=== PATIENT | female | born 1940 | race Caucasian/White ===

== ENCOUNTER → 2017-05-27 10:50 | Outpatient (CLI) | payer MEDICARE, OTHER, SELFPAY ==
[2017-05-27 12:21] LABS: Microalbumin,Random Urine 17.7 mg/L (NO RANGE EST.); Microalbumin:Creatinine Ratio 6.8 mg/g CRE (<30 mg/g CRE)
[2017-05-27 12:29] LABS: Hemoglobin A1c 5.6 % (4.2-6.3)
[2017-05-27 12:40] LABS: AST(SGOT) 16 U/L (15-37); Alanine Aminotransfer ALT/SGPT 17 U/L (13-56); Albumin, Serum 3.6 g/dL (3.2-5.0); Alkaline Phosphatase 131 U/L (45-117); Anion Gap 7 (5-15); BUN 13 mg/dL (7-18); BUN/Creat Ratio 17.6 RATIO (10-20); Bilirubin, Direct 0.14 mg/dL (0.00-0.30); Calcium,Total 9.1 mg/dL (8.5-10.1); Chloride 109 mmol/L (98-107); Cholesterol 249 mg/dL (200); Creatinine, Serum 0.74 mg/dL (0.55-1.02); EST Glomerular Filtration Rate 81 mL/min (>60); Est Glom Filt Rate - Afr Amer 98 mL/min (>60); Globulin 3.5 g/dL (2.2-4.2); Glucose 92 mg/dL (74-106); High Density Lipoprotein 60 mg/dL; Potassium 3.8 mmol/L (3.5-5.1); Protein, Total 7.1 g/dL (6.4-8.2); Sodium Level 141 mmol/L (136-145); Triglycerides 122 mg/dL; Very Low Density Lipoprotein 24 mg/dL (5-40)
== END ==
PROVIDERS: Family Provider Family Medicine; PCP Family Medicine; Visit Provider Family Medicine
DX: E11.9 Type 2 diabetes mellitus without complications (principal); I10 Essential (primary) hypertension
CPT/HCPCS: 36415; 80048; 80061; 80076; 82043; 82570; 83036

== ENCOUNTER 2017-07-29 09:00 | Outpatient (RCR) | payer MEDICARE, OTHER, SELFPAY ==
--- NOTE | 2017-05-30 15:03 | HP.PTEVAL_ITS ---
Patient's Visit Information ANTONI KULKARNI is a 76 year old F referred to Physical Therapy by MD SDAA Cohen with a diagnosis of LBP. Date of Evaluation: 05/30/17 Physical Therapist: Jason Sánchez PT, - Visit Plan Frequency: 2-3x /Week Duration: 4-6 Weeks Plan: Aquatic therapy consisting of B LE stretching and strengthening, core strengthening, and HEP - Subjective Subjective: Pt reports a chronic Hx of LBP, but notes it has worsened over the past 6 mos. Pt reports she has had PT in the past, but notes the benefits were only temporary. Pt reports She has L LE radiculopathy at trhis time that extends down the ant portion of her L thigh. Pt reports the pain does not extend beyond the knee. No recent Dx testing, although pt notes she has a spondylolesthesis which was detected on a previous test. Sleep diff secondary to pain at this time. Prolonged standing and walking tends to increase her pain. Pt has had 2 falls, both while tripping over her dog. 2/10 pain at rest, 5 /10 by the end of the day. - Pain LBP Pain Intensity (Out of 10): 2 Pain Intensity Range: 5 - Objective Neuro: B LE sensation is WNL to ight touch with the exception of B L5 is hyposensitive. MMT: B LE's are grossly 4/5 throughout. ROM: L/S is WNL in all planes with the exception of L/S extension which is moderately limited. Gait: Pt able to ambulate 170' with stad cane and CGAx1 until needing to sit - Goals Goal 1:: Decrease LBP x 50% to aid with sleep Goal Time Frame: 4-6 Weeks Goal 2:: Decrease F and I of L LE radiculopthy x 50% to aid with berkley for standing Goal Time Frame: 4-6 Weeks Goal 3:: Pt will be able to ambulate greater than 300 feet to aid with community ambulation Goal Time Frame: 4-6 Weeks Goal 4:: I with HEP Goal Time Frame: 4-6 Weeks - Rehabilitation Potential Physical Therapy Diagnosis: LBP, L LE radiculopathy, and limited ROM secondary to deg changes in L/S Rehabilitation Potential: Good - Anticipated Interventions Patient/Client Instruction: Educate patient on: Condition, Plan of Care For the Purpose of:: To improve self management Therapeutic Exercise to Include: Strength training, Endurance training, Body mechanics, Postural training, Flexibilty training, In an aquatic setting For the Purpose of:: To decrease pain, To increase ROM, To improve muscle performance and motor function Thank you for the opportunity to evaluate your patient. For Medicare and Medicare HMO plans, please review the plan of care and approve it. It will need to be FAXED BACK to us at [phone] for Medicare purposes. Please let me know if there are questions or concerns regarding this plan of care. Physician Signature: Date:
--- NOTE | 2017-06-26 11:31 | HP.PTREVAL_ITS ---
Carlie Renner MD, It has been my pleasure to treat ANTONI KULKARNI over the last 7 visits for LBP. Please see the progress note below for an update on the physical therapy plan of care! Subjective: Pt reports she has noticed big improvements with PT. Able to sleep through the night last night. No LE radiculopathy for last 3 days Objective/Function: Pain still at 6-7/10 at this time. Pt able to ambulate greater than 340' with cane without having to stop secondary to pain. Pt has had no LE radiculopathy for 3 days. Pt slept thoughout the night last night without waking up secondary to pain. Pt is progressing well toward Rx goals. Plan Plan: Cont with AT 2x's per week for 4 weeks Goals Goal 1:: Decrease LBP x 50% to aid with sleep Goal Time Frame: 4-6 Weeks Goal Progress: Progressing Goal 2:: Decrease F and I of L LE radiculopthy x 50% to aid with berkley for standing Goal Time Frame: 4-6 Weeks Goal Progress: Goal Met Goal 3:: Pt will be able to ambulate greater than 300 feet to aid with community ambulation Goal Time Frame: 4-6 Weeks Goal Progress: Goal Met Goal 4:: I with HEP Goal Time Frame: 4-6 Weeks Goal Progress: Progressing Anticipated Interventions Patient/Client Instruction: Educate patient on: Condition, Plan of Care For the Purpose of:: To improve self management Therapeutic Exercise to Include: Strength training, Endurance training, Body mechanics, Postural training, Flexibilty training, In an aquatic setting For the Purpose of:: To decrease pain, To increase ROM, To improve muscle performance and motor function Please do not hesitate to contact me at [phone] by phone or Fax: if you have questions or concerns regarding this new plan of care! Sincerely, Jason Sánchez, PT,
--- NOTE | 2017-07-29 09:12 | HP.PTDCSUM ---
HP - PT D/C Summary It has been my pleasure to treat ANTONI KULKARNI under orders from Carlie Renner MD, for the diagnosis of LBP for a total of 15 visit(s). Discharge Date: Please see the following information for a summary of their discharge status. - Subjective Subjective: Only minimal pain this date. Pt is ready for discharge - Pain LBP Pain Intensity (Out of 10): 1 RLE Pain Intensity (Out of 10): 0 LEFT LEG Pain Intensity (Out of 10): 1 - Objective Objective/Function: LBP now 03/12 and pt is not limited with sleep anymore. Pt can ambulate greater than 340 [address] cane. Pt reports very mild L LE radiculopathy 03/12. Pt is I with HEP. Rx goals achieved - Goals Goal 1:: Decrease LBP x 50% to aid with sleep Goal Progress: Goal Met Goal 2:: Decrease F and I of L LE radiculopthy x 50% to aid with berkley for standing Goal Progress: Goal Met Goal 3:: Pt will be able to ambulate greater than 300 feet to aid with community ambulation Goal Progress: Goal Met Goal 4:: I with HEP Goal Progress: Goal Met - Plan Plan: Discharge - D/C Information If there are questions or concerns regarding this patient's physical therapy, please feel free to call me at [phone]. Thank you for the referral of this patient. Sincerely, Jason Sánchez, PT,
== END 2017-07-29 14:29 | disposition home or self-care (01) ==
LOC: PT 09:00
PROVIDERS: Family Provider Family Medicine; PCP Family Medicine; Visit Provider Family Medicine
DX: M54.32 Sciatica, left side (principal)
CPT/HCPCS: 97113; 97161; 97530

== ENCOUNTER → 2017-12-01 14:34 | Outpatient (CLI) | payer MEDICARE, OTHER, SELFPAY ==
--- NOTE | 2017-12-01 14:38 | RAD_ITS ---
STUDY: X-RAY CHEST REASON FOR EXAM: Female, 77 years old. Cough TECHNIQUE: Frontal and lateral views COMPARISON: December 14, 2008. FINDINGS: The lungs are clear and expanded. There is no demonstrated pleural abnormality. Normal size heart. Normal mediastinum and elmer. Normal visualized pulmonary arteries. Mildly calcified aortic arch and descending thoracic aorta. Degenerative changes of the visualized thoracic spine. Normal visualized ribs, clavicles, and shoulders. There is no demonstrated abnormality of the visualized soft tissue structures of the upper abdomen. RAD/Chest PA and Lateral IMPRESSION: Normal x-ray examination of the chest. Electronically Signed: Shawn Ramírez DO at 21:51 EDT Tel [phone], Service support ,
[2017-12-01 17:53] LABS: Anion Gap 10 (5-15); BUN 11 mg/dL (7-18); BUN/Creat Ratio 9.6 RATIO (10-20); Calcium,Total 9.6 mg/dL (8.5-10.1); Chloride 107 mmol/L (98-107); Creatinine, Serum 1.15 mg/dL (0.55-1.02); EST Glomerular Filtration Rate 49 mL/min (>60); Est Glom Filt Rate - Afr Amer 59 mL/min (>60); Glucose 100 mg/dL (74-106); Potassium 3.8 mmol/L (3.5-5.1); Sodium Level 143 mmol/L (136-145)
[2017-12-01 18:12] LABS: Hemoglobin A1c 5.6 % (4.2-6.3)
== END ==
PROVIDERS: Family Provider Family Medicine; PCP Family Medicine; Referring Provider Family Medicine; Visit Provider Family Medicine
DX: R05 Cough (principal); E11.9 Type 2 diabetes mellitus without complications
CPT/HCPCS: 36415; 71046; 80048; 83036

== ENCOUNTER 2017-12-22 11:41 | Emergency (ER) | payer MEDICARE, OTHER, SELFPAY ==
[2017-12-22 11:43] VITALS: BP 157/92; PULSE 85; RESP 17; TEMP 36.7; O2SAT 96; BMI 37.5
--- NOTE | 2017-12-22 11:54 | CT_ITS ---
STUDY: CT BRAIN WITHOUT CONTRAST REASON FOR EXAM: Female, 77 years old. Fall. Laceration to forehead. RADIATION DOSAGE (If Supplied By Facility): CTDIvol = ( 44.99 ) mGy, DLP = ( 728.62 ) mGycm TECHNIQUE: Transaxial CT imaging of the brain was performed without administration of intravenous contrast material. Individualized dose optimization techniques were used for this CT. COMPARISON: None. FINDINGS: There is a small frontal scalp/soft tissue hematoma demonstrated. Normal calvarium. There is mild cerebral atrophy with widening of the extra-axial spaces and ventricular dilatation. There are areas of decreased attenuation within the white matter tracts of the supratentorial brain, consistent with microvascular disease changes. No demonstrated acute abnormality of the basal ganglia, thalami and brainstem. There is mild/moderate cerebellar atrophy. There is no intracranial hemorrhage. There are no findings of an acute ischemic infarction. Normal visualized paranasal sinuses. CT/Brain/Head without Contrast IMPRESSION: 1. Chronic involutional and ischemic changes of the brain. 2. No acute intracranial pathology demonstrated. 3. No demonstrated depressed skull fracture. Electronically Signed: Zulema Paul MD at 12:42 EDT Tel , Service support ,
--- NOTE | 2017-12-22 11:58 | ED.DCSUM_ITS ---
- ER Visit Summary Date of Service: 12/22/17 Chief Complaint: Mechanical fall History of Present Illness: The patient is a 77 F presents to the emergency department after mechanical fall. Patient normally walks with a cane, but she was not using it. She states she was walking to the bakery. She tripped over the sidewalk and fell forward. She caught herself with her hands, but then struck her face. She did not lose consciousness. She takes no anticoagulants. She is unsure of her last tetanus. She was wearing glasses and the glasses broke. She has no visual change, lightheadedness, or neck pain. She denies any numbness or weakness in her arms. She was able to stand and bear weight after the fall. Physical Examination: Vital signs reviewed General: Well-nourished, well-developed Head: Normocephalic, 2 cm laceration to the medial aspect of the right eyebrow that is vertically oriented Eyes: Pupils equal and reactive, extraocular muscles intact Neck, supple, no lymphadenopathy Heart: Regular rate and rhythm Respiratory: No distress, clear bilaterally Abdomen: Soft, nontender, nondistended, no peritoneal signs Back: Nontender Extremities: Nontender, superficial abrasions on the dorsum of both hands, no cords Skin: Normal color no rash Neuro: Alert and oriented, no focal or lateralizing deficits Test Results: [] Emergency Department Course and Treatment: The patient has a mechanical fall with head trauma. She had no loss of consciousness. She does have some superficial abrasions to the hands, but really no tenderness to palpation. I did obtain a head CT which showed chronic change, but no acute intracranial abnormalities. Patient's tetanus was updated. Her wound was anesthetized, irrigated, and closed with 5 simple interrupted suture. Patient tolerated this without issue. There were counseled on wound care and reasons to return. Patient will be discharged home. Treatment Plan: [] Disposition: Discharge Impression: 1. Mechanical fall 2. 2 cm facial laceration with repair This note was generated with [employer] dictation software. It may contain incorrect words, spelling, and punctuation that were not noted in review of the chart prior to signing ED Disposition - Plan for ED Patient: Chief Complaint: Fall Instructions: ED Mechanical Fall, ED Laceration All Referrals: Carlie Renner MD [Primary Care Provider] - 7 Days for suture removal
[2017-12-22] MEDS: Ibuprofen 600 MG Tablet PO (12:07)
[2017-12-22] MEDS: Diphth,Pertuss(Acell),Tet Vac 0.5 ML Vial IM (12:08)
[2017-12-22] MEDS: Lidocaine/Epi/Tetracaine 50 ML 1 APPLIC TOPICAL (12:08)
[2017-12-22 14:18] VITALS: BP 168/68; PULSE 80; RESP 18; O2SAT 96
== END 2017-12-22 14:19 | disposition home or self-care (01) ==
LOC: ED 12:30
PROVIDERS: Emergency Provider Emergency Medicine; Family Provider Family Medicine; PCP Family Medicine
DX: S01.111A Laceration without foreign body of right eyelid and periocular area, initial encounter (principal); Z23 Encounter for immunization; W01.198A Fall on same level from slipping, tripping and stumbling with subsequent striking against other object, initial encounter; Y93.01 Activity, walking, marching and hiking; Y92.89 Other specified places as the place of occurrence of the external cause; Y99.8 Other external cause status
CPT/HCPCS: 12011; 70450; 90715; 99283

== ENCOUNTER → 2018-06-02 14:09 | Outpatient (CLI) | payer MEDICARE, OTHER, SELFPAY ==
[2018-06-02 16:02] LABS: Microalbumin,Random Urine 5.2 mg/L (NO RANGE EST.); Microalbumin:Creatinine Ratio 7.3 mg/g CRE (<30 mg/g CRE)
[2018-06-02 16:08] LABS: AST(SGOT) 23 U/L (15-37); Alanine Aminotransfer ALT/SGPT 23 U/L (13-56); Albumin, Serum 3.8 g/dL (3.2-5.0); Alkaline Phosphatase 126 U/L (45-117); Anion Gap 5 (5-15); BUN 6 mg/dL (7-18); BUN/Creat Ratio 6.8 RATIO (10-20); Bilirubin, Direct 0.13 mg/dL (0.00-0.30); Chloride 109 mmol/L (98-107); Cholesterol 271 mg/dL (200); Creatinine, Serum 0.88 mg/dL (0.55-1.02); EST Glomerular Filtration Rate 66 mL/min (>60); Est Glom Filt Rate - Afr Amer 80 mL/min (>60); Glucose 102 mg/dL (74-106); High Density Lipoprotein 59 mg/dL; Potassium 4.5 mmol/L (3.5-5.1); Protein, Total 6.8 g/dL (6.4-8.2); Sodium Level 141 mmol/L (136-145); Triglycerides 158 mg/dL; Very Low Density Lipoprotein 32 mg/dL (5-40)
== END ==
PROVIDERS: Family Provider Family Medicine; PCP Family Medicine; Referring Provider Family Medicine; Visit Provider Family Medicine
DX: E11.9 Type 2 diabetes mellitus without complications (principal)
CPT/HCPCS: 36415; 80048; 80061; 80076; 82043; 82570

== ENCOUNTER → 2019-08-31 | Outpatient (CLI) | payer MEDICARE, OTHER, SELFPAY ==
[2019-08-31 16:11] LABS: AST(SGOT) 30 U/L (15-37); Alanine Aminotransfer ALT/SGPT 27 U/L (13-56); Anion Gap 7 (5-15); BUN 10 mg/dL (7-18); BUN/Creat Ratio 13.5 RATIO (10-20); Calcium,Total 8.9 mg/dL (8.5-10.1); Chloride 109 mmol/L (98-107); Cholesterol 149 mg/dL (200); Creatinine, Serum 0.74 mg/dL (0.55-1.02); EST Glomerular Filtration Rate 80 mL/min (>60); Est Glom Filt Rate - Afr Amer 97 mL/min (>60); Glucose 106 mg/dL (74-106); High Density Lipoprotein 61 mg/dL; Potassium 3.7 mmol/L (3.5-5.1); Sodium Level 142 mmol/L (136-145); Triglycerides 107 mg/dL; Very Low Density Lipoprotein 21 mg/dL (5-40)
[2019-09-01 07:20] LABS: SARS-COV-2 TOTAL ABS Nonreactive (Nonreactive)
== END | disposition home or self-care (01) ==
LOC: MFPLAB 11:20
PROVIDERS: PCP Family Medicine; Visit Provider Family Medicine
DX: I10 Essential (primary) hypertension (principal); E78.5 Hyperlipidemia, unspecified; Z20.828 Contact with and (suspected) exposure to other viral communicable diseases
CPT/HCPCS: 80048; 80061; 84450; 84460; 86769; G2023

== ENCOUNTER → 2021-02-16 14:51 | Outpatient (CLI) | payer MEDICARE, OTHER, SELFPAY ==
[2021-02-16 17:56] LABS: AST(SGOT) 34 U/L (15-37); Alanine Aminotransfer ALT/SGPT 35 U/L (13-56); Anion Gap 8 (5-15); BUN 17 mg/dL (7-18); BUN/Creat Ratio 19.4 RATIO (10-20); Chloride 103 mmol/L (98-107); Cholesterol 130 mg/dL (200); Creatinine, Serum 0.88 mg/dL (0.55-1.02); EST Glomerular Filtration Rate 66 mL/min (>60); Est Glom Filt Rate - Afr Amer 80 mL/min (>60); Glucose 100 mg/dL (74-106); High Density Lipoprotein 60 mg/dL; Potassium 3.7 mmol/L (3.5-5.1); Sodium Level 138 mmol/L (136-145); Triglycerides 93 mg/dL; Very Low Density Lipoprotein 19 mg/dL (5-40)
== END ==
PROVIDERS: PCP Family Medicine; Referring Provider Family Medicine; Visit Provider Family Medicine
DX: I10 Essential (primary) hypertension (principal); E78.5 Hyperlipidemia, unspecified
CPT/HCPCS: 36415; 80048; 80061; 84450; 84460

== ENCOUNTER 2021-03-28 15:02 | Outpatient (CLI) | payer MEDICARE, OTHER, SELFPAY ==
--- NOTE | 2021-03-28 15:08 | RAD_ITS ---
STUDY: X-RAY - LUMBAR SPINE REASON FOR EXAM: Female, 80 years old. Low back pain TECHNIQUE: 4 view(s) of the lumbar spine were obtained. COMPARISON: None FINDINGS: Normal lumbar lordosis. There is no substantial scoliosis. There is a normal alignment of the vertebrae from L1 to L4. There is a grade 1 spondylolisthesis at L4-5.. There is multilevel endplate spondylosis of the lumbar vertebrae. There is multi-level degenerative disc disease with multi-level disc space narrowing. The soft tissue structures are unremarkable. RAD/L/S Spine Min 4 Views IMPRESSION: Degenerative changes of the spine, as detailed above. No acute fracture Grade 1 spondylolisthesis at L4-5 Electronically Signed: Ashvin Ward MD at 13:14 EST ,
== END 2021-03-28 23:59 | disposition short-term general hospital (02) ==
LOC: MTRAD 15:04
PROVIDERS: PCP Family Medicine; Referring Provider Nurse Practitioner Family; Visit Provider Nurse Practitioner Family
DX: M46.96 Unspecified inflammatory spondylopathy, lumbar region (principal); M47.27 Other spondylosis with radiculopathy, lumbosacral region; M51.37 Other intervertebral disc degeneration, lumbosacral region
CPT/HCPCS: 72110

== ENCOUNTER 2021-04-03 09:42 | Outpatient (RCR) | payer MEDICARE, OTHER, SELFPAY | END 2021-04-03 19:00 | disposition home or self-care (01) | LOC: PT 09:42 | PROVIDERS: PCP Family Medicine; Referring Provider Nurse Practitioner Family; Visit Provider Nurse Practitioner Family | DX: M51.17 Intervertebral disc disorders with radiculopathy, lumbosacral region (principal); M46.96 Unspecified inflammatory spondylopathy, lumbar region; M47.27 Other spondylosis with radiculopathy, lumbosacral region | CPT/HCPCS: 97162 ==

== ENCOUNTER 2021-04-03 11:51 | Emergency (ER) | payer MEDICARE, OTHER, SELFPAY ==
[2021-04-03 11:52] VITALS: BP 143/83; PULSE 100; RESP 18; TEMP 36.2; O2SAT 100; BMI 33.6
[2021-04-03 12:41] VITALS: BP 154/79; PULSE 82; RESP 16; O2SAT 97
--- NOTE | 2021-04-03 14:12 | CT_ITS ---
STUDY: CT ABDOMEN AND PELVIS WITHOUT CONTRAST REASON FOR EXAM: Female, 80 years old. Pain, constipation, rule out SBO RADIATION DOSAGE (If Supplied By Facility): CTDIvol = ( 15.66 ) mGy, DLP = ( 778.72 ) mGycm TECHNIQUE: Transaxial images were obtained from the dome of the diaphragm to the symphysis pubis without oral contrast, and without intravenous contrast. Sagittal and coronal images were reconstructed. Individualized dose optimization techniques were used for this CT. COMPARISON: None. FINDINGS: Mild scarring at the lung bases. The visualized portions of the heart are within normal limits. Normal liver. There is a solitary gallstone. The gallstone measures 2.8 cm. Normal spleen. Normal pancreas. Normal bilateral adrenal glands. Normal right kidney. Normal left kidney. Normal visualized stomach. Normal small intestine. Moderate amount of fecal material is seen in the colon. Sigmoid diverticulosis. Questionable thickening along the left lateral wall of the rectum. Clinical correlation is recommended. There are surgical clips in the region of the appendix consistent with a prior appendectomy. There is scattered atherosclerotic calcification of the abdominal aorta and its major visceral branches, without a demonstrated aneurysm. Normal inferior vena cava. Normal retroperitoneum. An air-fluid level is seen within the urinary bladder. This most likely represents catheter manipulation. If there has been no attempted to DODGE catheter placement, a colovesical fistula should be ruled out. There is absence of the uterus consistent with a prior hysterectomy. Normal abdominal wall. There are diffuse degenerative changes of the visualized lumbar spine. Minimal anterior listhesis of L4 on L5. Facet joint osteoarthritis. CT/Abdomen/Pelvis without Cont IMPRESSION: Solitary gallstone. Moderate amount of fecal material is seen throughout the colon. Findings suggestive of a mural thickening along the left lateral wall of the rectum. Clinical correlation is recommended. Air-fluid level within the urinary bladder. This most likely secondary to prior catheterization attempt. If no catheterization attempt was performed, a colovesical fistula should be Electronically Signed: Umberto Pepe MD at 15:23 EST ,
[2021-04-03 14:50] LABS: Absolute Lymphocyte Count 1.58 X10^3/uL (0.83-4.51); Absolute Neutrophil Count 4.1 X10^3/uL (2.0-7.7); Basophil# 0.02 X10^3/uL; Basophil% 0.3 % (0-1); Eosinophil# 0.04 X10^3/uL; Eosinophils% 0.6 % (0-5); Hematocrit 39.4 % (37-47); Hemoglobin 13.1 g/dL (12.0-15.0); Lymphocyte # 1.58 X10^3/ul (0.83-4.51); Lymphocyte % 25.1 % (19-41); Mean Corp Hgb Conc 33.2 g/dL (32-36); Mean Corpuscular Hgb 28.8 pg (27.0-32.0); Mean Corpuscular Volume 86.6 fL (81-99); Mean Platelet Vol. 10.2 fl (6.2-12.0); Monocyte# 0.51 X10^3/uL; Monocyte% 8.1 % (0-10); NRBC Flagged by Analyzer 0 % (0-5); Neutrophil # 4.08 X10^3/uL (2.7-7.7); Neutrophil % 64.9 % (47-70); Platelet Count 188 K/mm3 (150-450); RBC Distribution Width CV 16.3 % (11.6-14.6); RBC Distribution Width SD 51.4 fl (35.1-43.9); Red Blood Count 4.55 M/mm3 (4.2-5.4); White Blood Count 6.3 K/mm3 (4.4-11.0)
[2021-04-03 15:00] LABS: AST(SGOT) 22 U/L (15-37); Alanine Aminotransfer ALT/SGPT 22 U/L (13-56); Albumin, Serum 2.9 g/dL (3.2-5.0); Alkaline Phosphatase 100 U/L (45-117); Anion Gap 7 (5-15); BUN 19 mg/dL (7-18); BUN/Creat Ratio 23.8 RATIO (10-20); Calcium,Total 9.1 mg/dL (8.5-10.1); Chloride 100 mmol/L (98-107); EST Glomerular Filtration Rate 74 mL/min (>60); Est Glom Filt Rate - Afr Amer 89 mL/min (>60); Globulin 2.9 g/dL (2.2-4.2); Glucose 110 mg/dL (74-106); Protein, Total 5.8 g/dL (6.4-8.2); Sodium Level 136 mmol/L (136-145)
[2021-04-03] MEDS: 0.9% Normal Saline 1,000 ML 125 ML IV (15:14)
--- NOTE | 2021-04-03 15:50 | EDS_ITS ---
HPI History of Present Illness Chief Complaint: Back Informant: patient and family Narrative Narrative: Patient is an 80-year-old female with history of urge incontinence and chronic back pain presenting from physical therapy for concern of fecal incontinence. Patient had physical therapy scheduled today and when they were going over her symptoms patient reported that she had stooled herself in her sleep last night. They were concerned given her back pain and sent her to emergency room to be evaluated further. Patient has been having a sore back for the past 2 weeks and is due to have a spinal injection tomorrow with Dr. Ritchie. She was diagnosed with spinal stenosis 5 years ago. She reportedly lost control of her bowels last week as well. Daughter describes last night incident as just a small smudge of stool in her depends when she woke up in the morning. It was not a full bowel movement or diarrhea. Patient does not have a bowel movement since yesterday and has been constipated. Patient does have chronic back pain that radiates down to her legs. She denies any significant change in it. She uses a cane to ambulate. Daughter does note that she has been having difficulty eating and coughing a lot whenever she eats for some time now. Patient does not report any numbness or tingling. She denies any new weakness of her legs. She denies any abdominal pain or acute urinary symptoms. No other complaints at this time. [facility] Medical History Anxiety Asthma Depression History of arthritis History of degenerative disc disease History of hyperlipidemia History of spinal stenosis Non-smoker Allergy/AdvReac Type Severity Reaction Status Date / Time No Known Allergies Allergy Verified 04/03/21 11:54 Surgical History History of bilateral knee replacement History of hysterectomy Social History Smoking Status: Never smoker ROS ROS ED Constitutional Constitutional ED: Denies chills or fever(s) Eyes Eyes: Denies change in vision ENT ENT ED: Denies rhinorrhea or sore throat Cardiovascular Cardiovascular: Denies chest pain Respiratory/Chest Respiratory/Chest: Denies cough or dyspnea Gastrointestinal Gastrointestinal: Reports constipation; Denies abdominal pain, diarrhea, nausea or vomiting Genitourinary Genitourinary ED: Denies dysuria, hematuria or urinary frequency Musculoskeletal Musculoskeletal: Reports back pain; Denies myalgias Integumentary Denies rash Neurologic Neurologic: Reports weakness; Denies headache(s) or paresthesias Psychiatric Psychiatric: Denies depression EXAM Physical Exam Const Vital Signs: 04/03/21 11:52 04/03/21 12:41 04/03/21 16:21 Temperature 97.1 F L Temperature Source Temporal Pulse Rate 100 82 89 Respiratory Rate 18 16 16 Blood Pressure 143/83 H 154/79 H 151/78 H Blood Pressure Mean 103 104 102 Pulse Ox 100 97 98 Oxygen Delivery Method Room Air Room Air Room Air Positive well nourished and well developed General Appearance ED: well developed and NAD Eyes PERRL and EOMs intact bilaterally Neck supple and no JVD Chest Wall inspection of chest normal Resp normal respiratory effort and clear to auscultation bilaterally Cardio regular rate, regular rhythm and no murmurs GI normal to inspection, nondistended, normoactive bowel sounds, non-tender and non-distended GI Narrative: Normal rectal tone. [place], rupali stool on rectal exam Palpation: soft Back/Spine no CVA tenderness Thoracic Spine / Upper Back: Negative for thoracic spinal tenderness or paraspinal muscle tenderness Lumbar Spine / Lower Back: Negative for lumbar spinal tenderness Extremity normal to inspection Extremity Narrative: 5 out of 5 strength with hip flexion, dorsiflexion and plantarflexion of the feet General Extremety ED: Negative for edema or tenderness General Extremity: Negative for edema Neuro oriented x3, CN's II-XII intact bilaterally and no sensory deficits noted Sensorium / Orientation: alert Motor Exam: strength 5/5 throughout Psych mental status grossly normal Skin no rashes or lesions noted and no wounds MDM MDM MDM Narrative Medical decision making narrative: Patient evaluated for concern of new onset of fecal incontinence. Patient is not having an acute back pain but has been having a sore back for couple weeks. No focal neurologic deficits. She has normal rectal tone. She does not have any saddle anesthesia. Will obtain a post void bladder scan and I do not think this is cauda equina syndrome. I suspect more that she has some constipation that is causing her symptoms. Given her age and vague history I did obtain blood work as well as a CT scan of the abdomen and pelvis. Blood work is remarkable for mild hypokalemia with a potassium of 3.0. She is given 40 mEq potassium replacement in the emergency room. CT shows moderate mount of fecal material in the colon as well as mural thickening along the left lateral rectal wall. In addition patient has an air- fluid level of the urinary bladder. No Trevizo catheter attempts have been made so differential includes gas-forming UTI versus fistula. Urinalysis is pending. Will order enema for constipation. Patient is informed of findings of the rectal wall thickening and need for outpatient follow-up to rule out malignancy. Given that she is not having any rectal pain, fever or leukocytosis I do not suspect inflammatory/infectious process at this time. Patient voids in the ER and on bladder scan has less than 100 mL of urine. I do not think she has acute urinary retention. Urinalysis is pending. If it is infectious she will be started on antibiotics. She is counseled on CT findings and need for outpatient follow-up with GI for rectal wall thickening as well as her PCP for possible fistula/further evaluation. Patient is encouraged to start taking daily MiraLAX. Counseled on return precautions with daughter and patient. Patient is given a copy of her CT findings. Lab Data Labs: Laboratory Results - last 24 hr 04/03/21 04/03/21 14:35 14:35 WBC 6.3 RBC 4.55 Hgb 13.1 Hct 39.4 MCV 86.6 MCH 28.8 MCHC 33.2 RDW Std Deviation 51.4 H RDW Coeff of Alfredo 16.3 H Plt Count 188 MPV 10.2 Immature Gran % (Auto) 1.000 H Neut % (Auto) 64.9 Lymph % (Auto) 25.1 Lake % (Auto) 8.1 Eos % (Auto) 0.6 Baso % (Auto) 0.3 Absolute Neuts (auto) 4.1 Absolute Lymphs (auto) 1.58 Nucleated RBC % 0 Sodium 136 Potassium 3.0 L Chloride 100 Carbon Dioxide 29.0 Anion Gap 7 BUN 19 H Creatinine 0.80 Estim Creat Clear Calc 46.40 Est GFR (MDRD) Af Amer 89 Est GFR (MDRD) Non-Af 74 BUN/Creatinine Ratio 23.8 H Glucose 110 H Calcium 9.1 Total Bilirubin 0.70 AST 22 ALT 22 Alkaline Phosphatase 100 Total Protein 5.8 L Albumin 2.9 L Globulin 2.9 Albumin/Globulin Ratio 1.0 Radiography Diagnostic Testing: Clinical Impression(s) from Imaging Studies Abdomen/Pelvis CT 04/03/21 14:12 IMPRESSION: Solitary gallstone. Moderate amount of fecal material is seen throughout the colon. Findings suggestive of a mural thickening along the left lateral wall of the rectum. Clinical correlation is recommended. Air-fluid level within the urinary bladder. This most likely secondary to prior catheterization attempt. If no catheterization attempt was performed, a colovesical fistula should be Electronically Signed: Umberto Pepe MD at 15:23 EST , Discharge Plan Triage Chief Complaint: Back ED Provider: Melony Jalloh Dx/Rx/DC Orders Clinical Impression: Constipation, Mural thickening of colon Instructions: ED Constipation (Adult) Primary Care Provider: Carlie Renner Referrals: Carlie Renner MD [Primary Care Provider] - Friend,DO Mario [STAFF PHYSICIAN] - 3-5 Days Activity Restrictions/Additional Instructions: Start taking daily MiraLAX, this is [id number], to help with constipation. Your CT showed air within the bladder which can be from infection or fistula. You been referred to GI doctor to follow-up with this as well as for evaluation of possible mass in your rectum. You may go for your spinal injection tomorrow. Disposition Disposition: Home, Self Care
[2021-04-03 16:15] LABS: Mucous, Urine 0 SEEN /hpf (<or=2+)
[2021-04-03 16:19] LABS: Color, Urine Yellow (Yellow); Glucose, Dipstick Normal (Normal); Ketone-Dipstick 5 mg/dl (Negative); Leukocyte Esterase-Dipstick 500 /ul (Negative); Nitrite-Dipstick Positive (Negative); Occult Blood-Urine 50 /ul (Negative); Protein-Dipstick 30 mg/dl (Negative); Specific Gravity, Urine 1.025 (1.002-1.030); Urine Bilirubin Dipstick Negative (Negative); Urine Clarity Cloudy (Clear); Urine Urobilinogen 1 mg/dl (Normal)
[2021-04-03 16:21] VITALS: BP 151/78; PULSE 89; RESP 16; O2SAT 98
[2021-04-03 16:35] LABS: Bacteria 3+ /hpf (None Seen); Red Blood Cells-Urine 0-5 SEEN /hpf (0-5); Squamous Epithelial Cells - UA 0-5 SEEN /hpf (5-10); White Blood Cells 10-25 SEEN /hpf (0-5)
--- NOTE | 2021-04-03 16:46 | EDS_ITS ---
HPI History of Present Illness Chief Complaint: Back [facility] Medical History Anxiety Asthma Depression History of arthritis History of degenerative disc disease History of hyperlipidemia History of spinal stenosis Non-smoker Home Medications cephalexin 500 mg PO Q6 #40 capsule 04/03/21 [Rx Last Taken Unknown] Allergy/AdvReac Type Severity Reaction Status Date / Time No Known Allergies Allergy Verified 04/03/21 11:54 Surgical History History of bilateral knee replacement History of hysterectomy Social History Smoking Status: Never smoker EXAM Physical Exam Const Vital Signs: 04/03/21 11:52 04/03/21 12:41 04/03/21 16:21 Temperature 97.1 F L Temperature Source Temporal Pulse Rate 100 82 89 Respiratory Rate 18 16 16 Blood Pressure 143/83 H 154/79 H 151/78 H Blood Pressure Mean 103 104 102 Pulse Ox 100 97 98 Oxygen Delivery Method Room Air Room Air Room Air [facility] Lab Data Labs: Laboratory Results - last 24 hr 04/03/21 04/03/21 04/03/21 14:35 14:35 16:11 WBC 6.3 RBC 4.55 Hgb 13.1 Hct 39.4 MCV 86.6 MCH 28.8 MCHC 33.2 RDW Std Deviation 51.4 H RDW Coeff of Alrfedo 16.3 H Plt Count 188 MPV 10.2 Immature Gran % (Auto) 1.000 H Neut % (Auto) 64.9 Lymph % (Auto) 25.1 [place] % (Auto) 8.1 Eos % (Auto) 0.6 Baso % (Auto) 0.3 Absolute Neuts (auto) 4.1 Absolute Lymphs (auto) 1.58 Nucleated RBC % 0 Sodium 136 Potassium 3.0 L Chloride 100 Carbon Dioxide 29.0 Anion Gap 7 BUN 19 H Creatinine 0.80 Estim Creat Clear Calc 46.40 Est GFR (MDRD) Af Amer 89 Est GFR (MDRD) Non-Af 74 BUN/Creatinine Ratio 23.8 H Glucose 110 H Calcium 9.1 Total Bilirubin 0.70 AST 22 ALT 22 Alkaline Phosphatase 100 Total Protein 5.8 L Albumin 2.9 L Globulin 2.9 Albumin/Globulin Ratio 1.0 Urine Color Yellow Urine Clarity Cloudy Urine pH 5.0 Ur Specific [place] 1.025 Urine Protein 30 H Urine Glucose (UA) Normal Urine Ketones 5 H Urine Occult Blood 50 H Urine Nitrite Positive H Urine Bilirubin Negative Urine Urobilinogen 1 H Ur Leukocyte Esterase 500 H Urine RBC 0-5 SEEN Urine WBC 10-25 SEEN Ur Squamous Epith Cells 0-5 SEEN Urine Bacteria 3+ Urine Mucus 0 SEEN Radiography Diagnostic Testing: Clinical Impression(s) from Imaging Studies Abdomen/Pelvis CT 04/03/21 14:12 IMPRESSION: Solitary gallstone. Moderate amount of fecal material is seen throughout the colon. Findings suggestive of a mural thickening along the left lateral wall of the rectum. Clinical correlation is recommended. Air-fluid level within the urinary bladder. This most likely secondary to prior catheterization attempt. If no catheterization attempt was performed, a colovesical fistula should be Electronically Signed: Umberto Pepe MD at 15:23 EST Reading Location ID and State: [address] [place] [address] , Service support , Discharge Plan Triage Chief Complaint: Back ED Provider: Melony Jalloh Dx/Rx/DC Orders Clinical Impression: Constipation, Mural thickening of colon, Acute UTI Instructions: Urinary Tract Infections in Women, ED Constipation (Adult) Prescriptions: New cephalexin [cephalexin] 500 MG capsule 500 mg PO Q6 Qty: 40 RF: 0 Primary Care Provider: Carlie Renner Referrals: Carlie Renner MD [Primary Care Provider] - Friend,DO Mario [STAFF PHYSICIAN] - 3-5 Days Activity Restrictions/Additional Instructions: Start taking daily MiraLAX, this is [id number], to help with constipation. Your CT showed air within the bladder which can be from infection or fistula. You been referred to GI doctor to follow-up with this as well as for evaluation of possible mass in your rectum. You may go for your spinal injection tomorrow. Disposition Disposition: Home, Self Care
[2021-04-03] MEDS: Potassium Chloride Oral Tablet 20 MEQ 40 MEQ PO (18:36)
[2021-04-03] MEDS: Cephalexin 250 MG Capsule 500 MG PO (18:36)
[2021-04-03 18:47] VITALS: BP 130/76; PULSE 96; RESP 15; O2SAT 97
== END 2021-04-03 18:48 | disposition home or self-care (01) ==
PROVIDERS: Emergency Provider Emergency Medicine; PCP Family Medicine; Visit Provider Emergency Medicine
DX: K59.00 Constipation, unspecified (principal); M46.86 Other specified inflammatory spondylopathies, lumbar region; N39.0 Urinary tract infection, site not specified; M51.37 Other intervertebral disc degeneration, lumbosacral region; M47.817 Spondylosis without myelopathy or radiculopathy, lumbosacral region; M54.17 Radiculopathy, lumbosacral region; R32 Unspecified urinary incontinence; Z96.653 Presence of artificial knee joint, bilateral
CPT/HCPCS: 74176; 80053; 81001; 85025; 96360; 96361; 97162; 99285; J7030

== ENCOUNTER 2021-06-07 10:00 | Day surgery (SDC) | payer MEDICARE, OTHER, SELFPAY ==
--- NOTE | 2021-06-07 | COLBX_PTH ---
PATIENT: ANTONI KULKARNI LOC: EN U#:[id number] AGE/SX: 80/F ROOM: RE06/07/[address]: Dr. Mario Booth DO : 1940 BED: DIS: 06/07/2021 SPEC #: [id number] RECD: 06/07/21 14:20 STATUS: RICHARD MOUNA #: [id number] KARISHMA: 06/07/21 00:[address]: Mario Booth DEPT: SURGICAL PATHOLOGY RECD BY: Earl Rojas ENTERED: 06/08/21 10:47 SP TYPE: COLON BX OTHR DR: Dr. Carlie Renner MD Tissues: A - SPLENIC FLEXURE B - Ileum, NOS C - Cecum, NOS D - Transverse colon E - Anal region F - Anal region Procedures: Surgery Specimen Level IV HEADER OPERATION: Colonoscopy (MAC), biopsy PRE-OP DIAGNOSIS: Abnormal CT scan, GI tract TISSUE SUBMITTED: A ? Biopsy splenic flexure, polyps, B ? Terminal ileum biopsy, C ? Cecal cap biopsy, D ? Transverse colon polyp, E ? Anal lesion biopsy, F ? Anal lesion MICROSCOPIC DIAGNOSIS A. Splenic flexure polyps, biopsy: Fragments of tubular adenoma. B. Terminal ileum, biopsy: A fragment of small intestinal mucosa, no pathologic diagnosis. C. Cecal cap, biopsy: Fragments of colonic mucosa, no pathologic diagnosis. D. Transverse colon polyp, biopsy: Tubular adenoma. E. Anal lesion, biopsy: Fragments of colonic mucosa with extensive ulceration, acute and chronic inflammation, granulation tissue reaction and focal hyperplastic changes, consistent with solitary rectal ulcer/rectal polyp syndrome. F. Anal lesion, biopsy: Fragments of colonic mucosa with extensive ulceration, acute and chronic inflammation, granulation tissue reaction and focal hyperplastic changes, consistent with solitary rectal ulcer/rectal polyp syndrome. A fragment of tubular adenoma. SJ:rg 06/11/2021 COMMENT Correlation with clinical, endoscopic findings and appropriate follow up are necessary. Case has been reviewed in consultation with Dr. Singh who concurs with the above diagnosis. IDC:AM MICROSCOPIC DESCRIPTION Slides are reviewed. GROSS DESCRIPTION A - Received in fixative is one container labeled with the patient's name and designated splenic flexure polyps. The specimen consists of two irregular fragments of light montilla soft tissue that in aggregate measure 0.6 x 0.4 x 0.1 cm. The specimen is totally submitted in one cassette. B - Received in fixative is one container labeled with the patient's name and designated terminal ileum. The specimen consists of one irregular fragment of light [place] soft tissue that measures 0.3 x 0.3 x 0.1 cm. The specimen is totally submitted in one cassette. C - Received in fixative is one container labeled with the patient's name and designated cecal cap. The specimen consists of two irregular fragments of light montilla soft tissue that in aggregate measure 0.6 x 0.3 x 0.1 cm. The specimen is totally submitted in one cassette. D - Received in fixative is one container labeled with the patient's name and designated transverse colon polyp. The specimen consists of two irregular fragments of light [place]illa soft tissue that in aggregate measure 0.5 x 0.2 x 0.1 cm. The specimen is totally submitted in one cassette. E - Received in fixative is one container labeled with the patient's name and designated anal lesion. The specimen consists of multiple irregular fragments of light montilla soft tissue that in aggregate measure 1 x 0.5 x 0.1 cm. The specimen is totally submitted in one cassette. F - Received in fixative is one container labeled with the patient's name and designated anal lesion. The specimen consists of multiple irregular fragments of light montilla soft tissue that in aggregate measure 1 x 0.4 x 0.1 cm. The specimen is totally submitted in one cassette. / SJ:dany 06/08/2021 TC:1 CPT: 65337 x6
[2021-06-07 10:36] VITALS: BP 150/85; PULSE 89; RESP 18; TEMP 36.3; O2SAT 97; BMI 33.5
--- NOTE | 2021-06-07 11:18 | HP.PCM_ITS ---
History and Physical Date of Admission: 06/07/21 80 F who presents to the office today for Presented to [facility] ED 2.03.24 with reports of fecal incontinence which will happen during sleep. She was also having difficulty with back pain; urinary work up performed. Also noted that she was having back pain and is being seen by Dr. Beebe for this. ATB therapy started for UTI treatment. CT abd/pel performed during ED visit. CT abd/pel 2.03.24 found moderate amount of fecal material seen in colon. Sigmoid diverticulosis. Questionable thickening along left lateral rectal wall. Solitary gallstone measuring 2.8cm. Scarring at lung bases. Diffuse degenerative changes of lumbar spine. Facet osteoarthritis. Minimal anterior lithiasis of L4 on L5. Air filled urinary bladder with no Trevizo present or attempted. Reports ongoing issues with constipation and diarrhea for many years. Two weeks prior to ED presentation she reported worsening diarrhea. During this time she had increased urgency with incontinence and a lack of feeling of needing to defecate. Incontinence was happening frequently during the night. This last until a couple days following the ED visit. She started Miralax QD following ED visit and she has been doing well with this regimen. Has not needed Miralax in the last five days as she has been having daily BM with feeling of complete evacuation, however she sometimes feels like she goes a lot during one sitting. Daughter reports that there has been some difficulty swallowing with coughing and choking and they have changed to a soft diet for the last year. Since ATB use for UTI she has not been having this difficulty. Denies family history of colon cancer. One brother and two half-sisters had cancer. Personal history of skin cancer. She sees dermatology Dr. Edge through [facility]. Denies history of colonoscopy screening. ROS Const Constitutional: No anorexia, body ache, chills, excessive sweating, fatigue, fever(s), frequent falls, headache(s), decreased energy, malaise, night sweats, snoring, weakness, weight change, sleep problems, abnormal sleep pattern, change in appetite or other ENT ENT: No headache(s), difficulty swallowing, hoarseness or sore throat Resp Respiratory: No snoring Cardio Cardiology: No chest pain at rest or excessive sweating Gastro GI: No abdominal pain, belching, bloating, change in bowel habits, change in stool character, coffee ground emesis, constipation, cramping, diarrhea, heartburn, difficulty swallowing, feeling full early, excessive flatus, incontinent of stools, Vomiting blood/hematemesis, Blood in stool, loose stools, Black,tarry stools, nausea/dyspepsia, pain with swallowing, vomiting or other Musc Musculoskeletal: No joint pain Skin Skin: No yellowing of the eye or itchy eyes Neuro Neurology: No weakness, frequent falls or headache(s) Psych Psychiatric: No abnormal sleep pattern and No change in appetite Endo Endocrine: No excessive sweating, fatigue or weight change Aller/Imm Allergy/Immunologic: No itchy eyes Danny/Lymp Hematologic/Lymphatic: No easy bleeding or easy bruising Exam Const General: cooperative and comfortable Nutritional Appearance: average body habitus and well nourished HENMT Head: normal to inspection Ears: hearing grossly normal bilaterally Nose: external nose normal Face and sinus: normal facial exam Mouth: oral mucosae normal Throat: posterior oropharynx normal Eyes General: appearance normal, both eyes and all related structures Neck Neck: normal visual inspection Chest Chest palpation & inspection: normal inspection of the chest and normal palpation of entire chest wall Resp Effort & Inspection: normal respiratory effort Auscultation: Bilateral: Clear to Auscultation Cardio Palpation: normal PMI Rate: regular rate Rhythm: regular rhythm GI Inspection: normal to inspection Auscultation: normal bowel sounds Percussion: normal to percussion Palpation: no hepatosplenomegaly Skin General: no rashes or lesions noted Neuro General: patient alert Extrem General: normal to inspection Psych Affect: normal affect Quality Reporting Tobacco Screening ([facility] 138) Smoking Status: Never smoker Assessment and Plan Assessment and Plan (1) Abnormal CT scan, gastrointestinal tract: Status: Acute Plan - Dr. Martin Friend, DO: She will undergo colonoscopy to evaluate the abnormality seen on CT scan. The differential diagnosis does include stercoral ulcer syndrome, colourethral fistula, proctitis, neoplasia. She was explained alternatives, risk, benefits including outstanding bleeding, infection, sepsis, perforation, need for emergent surgery . She will have an ASA 3. I have re-examined the patient. There are no clinical changes since date of exam.
[2021-06-07 11:59] VITALS: BP 116/74; BP 150/85; PULSE 92; RESP 16; TEMP 36.6; O2SAT 100
[2021-06-07 12:05] VITALS: BP 150/85; BP 88/70; PULSE 86; RESP 16; O2SAT 98
--- NOTE | 2021-06-07 12:07 | OP.COLON_ITS ---
Patient Name: Shayy Moncada Procedure Date: 06/07/2021 11:08 AM Date of : 1940 Age: 80 Procedure: Colonoscopy Indications: Screening for colorectal malignant neoplasm Providers: Mario Booth DO Referring MD: Carlie Renner Medicines: See the Anesthesia note for documentation of the administered medications Patient Profile: This is an 80 year old female. Refer to note in patient chart for documentation of history and physical. Last Colonoscopy: none. The patient's first colonoscopy is today. Complications: No immediate complications. Procedure: Pre-Anesthesia Assessment: - Prior to the procedure, a History and Physical was performed, and patient medications and allergies were reviewed. The risks and benefits of the procedure and the sedation options and risks were discussed with the patient. All questions were answered and informed consent was obtained. Patient identification and proposed procedure were verified by the physician in the pre-procedure area. Mental Status Examination: alert and oriented. Airway Examination: normal oropharyngeal airway and neck mobility. Respiratory Examination: clear to auscultation. CV Examination: normal. Prophylactic Antibiotics: The patient does not require prophylactic antibiotics. Prior Anticoagulants: The patient has taken no previous anticoagulant or antiplatelet agents. After reviewing the risks and benefits, the patient was deemed in satisfactory condition to undergo the procedure. The anesthesia plan was to use moderate sedation / analgesia (conscious sedation). Immediately prior to administration of medications, the patient was re-assessed for adequacy to receive sedatives. The heart rate, respiratory rate, oxygen saturations, blood pressure, adequacy of pulmonary ventilation, and response to care were monitored throughout the procedure. The physical status of the patient was re-assessed after the procedure. After I obtained informed consent, the scope was passed under direct vision. Throughout the procedure, the patient's blood pressure, pulse, and oxygen saturations were monitored continuously. The colonoscope was introduced through the anus and advanced to the terminal ileum. The colonoscopy was performed without difficulty. The patient tolerated the procedure well. The quality of the bowel preparation was good. Moderate Sedation: Moderate (conscious) sedation was administered by the endoscopy nurse and supervised by the endoscopist. The patient's oxygen saturation, heart rate, blood pressure and response to care were monitored. Total physician intraservice time was 15 minutes. Scope In: 11:26:29 AM Scope Withdrawal Time 0 hours 17 minutes 19 seconds Scope Out: 11:51:56 AM Total Procedure Duration Time 0 hours 25 minutes 27 seconds Findings: The perianal and digital rectal examinations were normal. A 7 mm polypoid lesion was found at the anus. The lesion was sessile. No bleeding was present. The polyp was removed with a hot snare. Resection and retrieval were complete. Verification of patient identification for the specimen was done. Estimated blood loss was minimal. Three sessile polyps were found in the sigmoid colon and splenic flexure. The polyps were 1 to 2 mm in size. These polyps were removed with a hot snare. Resection and retrieval were complete. Verification of patient identification for the specimen was done. Estimated blood loss was minimal. An area of moderately congested mucosa was found in the sigmoid colon, in the descending colon, at the splenic flexure, in the transverse colon, at the hepatic flexure and in the ascending colon. Biopsies were taken with a cold forceps for histology. Verification of patient identification for the specimen was done. Estimated blood loss was minimal. There were also multiple AVMs seen throughout the colon with the largest being in the cecum. There was some mild cecal inflammation and was also seen and biopsied. A localized area of the terminal ileum was congested. Biopsies were taken with a cold forceps for histology. Verification of patient identification for the specimen was done. Estimated blood loss was minimal. Impression: - Polypoid lesion at the anus. Complete removal was accomplished. - Three 1 to 2 mm polyps in the sigmoid colon and at the splenic flexure, removed with a hot snare. Resected and retrieved. - Congested mucosa in the sigmoid colon, in the descending colon, at the splenic flexure, in the transverse colon, at the hepatic flexure and in the ascending colon. Biopsied. - Congested mucosa in the terminal ileum. Biopsied. Recommendation: - Discharge patient to home. - Resume previous diet. - Continue present medications. - Await pathology results. - Repeat colonoscopy in 1 year for surveillance based on pathology results. - Return to GI office. Procedure Code(s): --- Professional --- 64408, Colonoscopy, flexible; with removal of tumor(s), polyp(s), or other lesion(s) by snare technique 01514, 59, Colonoscopy, flexible; with biopsy, single or multiple [id number], 59, Moderate sedation services provided by the same physician or other qualified health health care / medical job titles performing the diagnostic or therapeutic service that the sedation supports, requiring the presence of an independent trained observer to assist in the monitoring of the patient's level of consciousness and physiological status; initial 15 minutes of intraservice time, patient age 5 years or older CPT copyright 2017 [employer]. All rights reserved. The codes documented in this report are preliminary and upon medical biller coder review may be revised to meet current compliance requirements. Mario Booth DO 06/07/2021 12:06:58 PM This report has been signed electronically. Number of Addenda: 1 Note Initiated On: 06/07/2021 11:08 AM Addendum Number: 1 Addendum Date: 11/29/2021 6:44:41 AM MAC was used as sedation for this procedure. Mario Booth DO 11/29/2021 6:44:45 AM This report has been signed electronically.
--- NOTE | 2021-06-07 12:08 | OP.CCLET_ITS ---
11/29/2021 Carlie Renner [address] [place] [address] Re : Colonoscopy procedure for Shayy Moncada Dear Dr. Renner This procedure was performed on June. My impressions and recommendations are as follows: Impressions : - Polypoid lesion at the anus. Complete removal was accomplished. - Three 1 to 2 mm polyps in the sigmoid colon and at the splenic flexure, removed with a hot snare. Resected and retrieved. - Congested mucosa in the sigmoid colon, in the descending colon, at the splenic flexure, in the transverse colon, at the hepatic flexure and in the ascending colon. Biopsied. - Congested mucosa in the terminal ileum. Biopsied. Recommendations : - Discharge patient to home. - Resume previous diet. - Continue present medications. - Await pathology results. - Repeat colonoscopy in 1 year for surveillance based on pathology results. - Return to GI office. My findings are described in the full procedure note, which is enclosed. If I can be of further assistance, please feel free to contact me at . Sincerely, Mario Booth DO 06/07/2021 12:06:58 PM This report has been signed electronically.
[2021-06-07 12:10] VITALS: BP 119/83; BP 150/85; PULSE 89; RESP 16; O2SAT 99
[2021-06-07 12:14] VITALS: BP 125/81; BP 150/85; PULSE 85; RESP 16; TEMP 36.3; O2SAT 97
[2021-06-07 12:53] VITALS: BP 150/85
== END 2021-06-07 23:59 | disposition home or self-care (01) ==
LOC: EN 10:02 → AC 10:03
PROVIDERS: PCP Family Medicine; Referring Provider Family Medicine; Visit Provider Internal Medicine Gastroenterology
PROC: 0DJD8ZZ Inspection of Lower Intestinal Tract, Via Natural or Artificial Opening Endoscopic (ICD-10-PCS; CPT 45378; principal; 2021-06-07 11:10)
DX: D12.3 Benign neoplasm of transverse colon (principal); K63.89 Other specified diseases of intestine; K62.6 Ulcer of anus and rectum; Z79.899 Other long term (current) drug therapy
CPT/HCPCS: 45385; 45380; 88305; J7120; J2405

== ENCOUNTER → 2022-03-20 | Outpatient (CLI) | payer MEDICARE, OTHER, SELFPAY ==
[2022-03-20 16:18] LABS: AST(SGOT) 14 U/L (15-37); Alanine Aminotransfer ALT/SGPT 23 U/L (13-56); Anion Gap 7 (5-15); BUN 20 mg/dL (7-18); BUN/Creat Ratio 27.5 RATIO (10-20); Calcium,Total 9.5 mg/dL (8.5-10.1); Chloride 107 mmol/L (98-107); Cholesterol 164 mg/dL (200); Creatinine, Serum 0.73 mg/dL (0.55-1.02); EST Glomerular Filtration Rate 82 mL/min (>60); Est Glom Filt Rate - Afr Amer 99 mL/min (>60); Glucose 85 mg/dL (74-106); High Density Lipoprotein 77 mg/dL; Potassium 4.2 mmol/L (3.5-5.1); Sodium Level 143 mmol/L (136-145); Triglycerides 114 mg/dL; Very Low Density Lipoprotein 23 mg/dL (5-40)
== END | disposition home or self-care (01) ==
LOC: MFPLAB 11:53
PROVIDERS: PCP Family Medicine; Visit Provider Family Medicine
DX: I10 Essential (primary) hypertension (principal); E78.5 Hyperlipidemia, unspecified
CPT/HCPCS: 36415; 80048; 80061; 84450; 84460

== ENCOUNTER → 2022-09-17 | Outpatient (CLI) | payer MEDICARE, OTHER, SELFPAY ==
[2022-09-17 15:46] LABS: Anion Gap 7 (5-15); BUN 12 mg/dL (7-18); BUN/Creat Ratio 14.4 RATIO (10-20); Calcium,Total 9.4 mg/dL (8.5-10.1); Chloride 104 mmol/L (98-107); Creatinine, Serum 0.84 mg/dL (0.55-1.02); EST Glomerular Filtration Rate 69 mL/min (>60); Est Glom Filt Rate - Afr Amer 84 mL/min (>60); Glucose 99 mg/dL (74-106); Potassium 4.2 mmol/L (3.5-5.1); Sodium Level 139 mmol/L (136-145)
== END | disposition home or self-care (01) ==
LOC: MFPLAB 13:41
PROVIDERS: PCP Family Medicine; Visit Provider Family Medicine
DX: I10 Essential (primary) hypertension (principal)
CPT/HCPCS: 36415; 80048

== ENCOUNTER → 2023-09-23 | Outpatient (CLI) | payer MEDICARE, OTHER, SELFPAY ==
[2023-09-23 18:02] LABS: Protein, Urine (Random) 13.6 mg/dL (<11.9); Protein:Creat Ratio 174 mg/g CRE (0-200)
[2023-09-23 18:16] LABS: AST(SGOT) 21 U/L (15-37); Alanine Aminotransfer ALT/SGPT 23 U/L (13-56); Anion Gap 8 (5-15); BUN 18 mg/dL (7-18); BUN/Creat Ratio 17.5 RATIO (10-20); Calcium,Total 9.9 mg/dL (8.5-10.1); Chloride 104 mmol/L (98-107); Cholesterol 139 mg/dL (200); Creatinine, Serum 1.03 mg/dL (0.55-1.02); EST Glomerular Filtration Rate 54 mL/min (>60); Est Glom Filt Rate - Afr Amer 66 mL/min (>60); Glucose 113 mg/dL (74-106); High Density Lipoprotein 71 mg/dL; Potassium 3.9 mmol/L (3.5-5.1); Sodium Level 139 mmol/L (136-145); Triglycerides 82 mg/dL; Very Low Density Lipoprotein 16 mg/dL (5-40)
== END | disposition home or self-care (01) ==
LOC: MTLAB 14:22
PROVIDERS: PCP Family Medicine; Referring Provider Family Medicine; Visit Provider Family Medicine
DX: I10 Essential (primary) hypertension (principal); E78.5 Hyperlipidemia, unspecified
CPT/HCPCS: 36415; 80048; 80061; 82570; 84156; 84450; 84460

== ENCOUNTER 2024-07-20 18:40 | Emergency (ER) | payer MEDICARE, OTHER, SELFPAY ==
[2024-07-20 18:41] VITALS: BP 120/84; PULSE 89; RESP 18; TEMP 35.8; O2SAT 98
--- NOTE | 2024-07-20 20:07 | EX.ED.DYSGE1 ---
HPI History of Present Illness Chief Complaint: Foreign Body Informant: patient and family Narrative Narrative: Here with daughter for evaluation of choking event 5:30 PM while eating dinner. Daughter states patient was eating broccoli soup and then quinoa salad. She took out the trash came back patient continued to cough. Cough up to ED arrival until 630. Due to busy department she was seen at 8 PM in the room. Symptoms have resolved. Per daughter had an event years ago. History of asthma. Currently denies any symptoms. [facility] Medical History Wears glasses Wears hearing aid Wears dentures Dementia Uses wheelchair Back pain Dietary restriction Difficulty swallowing Cancer Anxiety Depression History of arthritis History of spinal stenosis History of degenerative disc disease Non-smoker Asthma History of hyperlipidemia Home Medications ?Medication ?Instructions ?Recorded ?Last Taken ?Type atorvastatin 40 mg tablet 40 mg PO DAILY 06/06/21 Unknown History fluticasone propionate 220 2 inh inhalation BID 06/06/21 Unknown History mcg/actuation HFA aerosol inhaler (Flovent HFA) montelukast 10 mg tablet 10 mg PO DAILY 06/06/21 Unknown History (Singulair) Allergy/AdvReac Type Severity Reaction Status Date / Time No Known Allergies Allergy Verified 07/20/24 18:40 Surgical History History of bilateral knee replacement History of hysterectomy Social History Smoking Status: Never smoker ROS ROS ED Constitutional Constitutional ED: Denies fever(s) Cardiovascular Cardiovascular: Denies chest pain Respiratory/Chest Respiratory/Chest: Reports cough Gastrointestinal Gastrointestinal: Denies diarrhea or vomiting Musculoskeletal Musculoskeletal: Denies none Integumentary Denies rash or wounds Neurologic Neurologic: Denies weakness EXAM Physical Exam Const Vital Signs: 07/20/24 18:41 07/20/24 20:22 Temperature 96.4 F L 97.6 F L Temperature Source Temporal Pulse Rate 89 81 Respiratory Rate 18 14 Blood Pressure 120/84 H 118/76 Blood Pressure Mean 96 90 Pulse Ox 98 100 Oxygen Delivery Method Room Air Positive well nourished and well developed General Appearance ED: well developed and NAD HEENT Reports moist mucous membranes normocephalic and atraumatic Eyes General Eye ED: Yes normal appearance of both eyes Neck full ROM Chest Wall Chest: Negative for tenderness Resp normal respiratory effort and normal air movement Resp Narrative: No rales. Effort and Inspection: symmetric chest movement; Negative for respiratory distress Cardio regular rate, regular rhythm and no murmurs Peripheral Pulses: pulses 2+ throughout GI normal to inspection, nondistended, normoactive bowel sounds and non-tender Palpation: Negative for guarding or rebound tenderness present Extremity normal to inspection General Extremety ED: Negative for edema or tenderness General Extremity: Negative for edema Neuro oriented x3 and no sensory deficits noted Sensorium / Orientation: awake and alert Skin no rashes or lesions noted and no wounds MDM MDM MDM Narrative Medical decision making narrative: Interventions / MDM: Differential diagnosis: Aspiration event, history of asthma Diagnosis considered but do not suspect: N/A My EKG interpretation: N/A Imaging independently reviewed and interpreted by myself: N/A External documents reviewed: N/A Test considered but not ordered:N/A ED course: Patient currently asymptomatic for 90 minutes. Vital stable no respiratory distress no rales. Discussed with daughter and patient symptoms can worsen up to 6 hours afterwards. Discussed and offered monitoring in the ED. However daughter states they would like to monitor at home and return if worsens. Therefore patient will be discharged with return precautions. All questions were answered. Re-evaluation: stable Disposition discussed with patient/family/significant other: Patient and daughter Case discussed with consulting clinician: N/A This note was generated with [employer] dictation software. It may contain incorrect words, spelling, and punctuation that were not noted in checking the note before signing. Discharge Plan Triage Chief Complaint: Foreign Body ED Provider: Stephen Kaur Dx/Rx/DC Orders Clinical Impression: Aspiration into airway, Cough Instructions: ED Choking Spell (Adult) Prescriptions: No Action atorvastatin 40 mg tablet 40 mg PO DAILY montelukast [Singulair] 10 mg tablet 10 mg PO DAILY Flovent HFA 220 mcg/actuation HFA aerosol inhaler 2 inh INHALATION BID Primary Care Provider: Carlie Renner Referrals: Carlie Renner MD [Primary Care Provider] - 1 Week Activity Restrictions/Additional Instructions: Symptoms resolved. If you develop any respiratory distress, return to ED for reevaluation. Print Language: Cypriot Disposition Disposition: Home, Self Care Discharge Date/Time: 07/20/24 20:23
[2024-07-20 20:22] VITALS: BP 118/76; PULSE 81; RESP 14; TEMP 36.4; O2SAT 100
== END 2024-07-20 20:23 | disposition home or self-care (01) ==
LOC: ED 20:12
PROVIDERS: Emergency Provider Emergency Medicine; PCP Family Medicine; Visit Provider Emergency Medicine
DX: T17.928A Food in respiratory tract, part unspecified causing other injury, initial encounter (principal); W44.F3XA Food entering into or through a natural orifice, initial encounter; E78.5 Hyperlipidemia, unspecified; J45.909 Unspecified asthma, uncomplicated; Z79.51 Long term (current) use of inhaled steroids; Z79.899 Other long term (current) drug therapy
CPT/HCPCS: 99282

== ENCOUNTER → 2024-10-29 | Outpatient (CLI) | payer MEDICARE, OTHER, SELFPAY ==
[2024-10-29 15:13] LABS: Hematocrit 47.5 % (37-47); Hemoglobin 15.2 g/dL (12.0-15.0); Immature Granulocytes Count 0.020 X10^3/uL (0.0-0.0); Mean Corp Hgb Conc 32.0 g/dL (32-36); Mean Corpuscular Volume 92.4 fL (81-99); Mean Platelet Vol. 12.0 fl (6.2-12.0); NRBC Flagged by Analyzer 0 % (0-5); Platelet Count 203 K/mm3 (150-450); RBC Distribution Width CV 13.3 % (11.6-14.6); RBC Distribution Width SD 45.8 fl (35.1-43.9); Red Blood Count 5.14 M/mm3 (4.2-5.4); White Blood Count 8.9 K/mm3 (4.4-11.0)
[2024-10-29 16:15] LABS: Cholesterol 141 mg/dL (<=200); Low Density Lipoprotein Calc. 56 mg/dL; Triglycerides 91 mg/dL; Very Low Density Lipoprotein 18 mg/dL (5-40); cholesterol:hdl ratio screen 2.10
--- OUTSIDE RECORDS SUMMARY | 2024-10-29 17:16 | XMS RPT_ITS | CCD ---
Author Organization [facility] Care Team Providers Care Physical Science Technician Name Role Phone Grabill Selvin Champ Unavailable Unavailable Grabill Selvinchio Oakes Unavailable Unavailable *SELF, REFERRED Unavailable Unavailable Carlie Renner Unavailable Unavailable Honda, Yvonned Shuji Unavailable Unavailable Grabill, Selvin Oakes Unavailable Unavailable Carlie Renner Unavailable Unavailable Dr. Carlie Renner Primary Care Provider Dr. Carlie Renner Referring Provider FriendDr. Martin Attending Provider Dr. Mario Booth Other Provider Dr. Carlie Renner Primary Care Provider Dr. Carlie Renner Referring Provider Dr. Mario Booth Attending Provider Dr. Carlie Renner MD Primary Care Provider [phone] Dr. Stephen Kaur DO Emergency Provider Carlie Renner Referring Unavailable Carlie Renner Attending Unavailable Carlie Renner Primary Care Unavailable Carlie Renner Primary Care Unavailable Stephen Kaur Attending Unavailable Carlie Renner Attending Unavailable Carlie Renner Primary Care Unavailable Dr. Stephen Kaur DO Attending Provider Dr. Carlie Renner MD Referring Provider Hoda SANTANA, Dr. Hutton Attending Provider Medications Current Medications Medication Drug Class(es) Dates Sig (Normalized) Sig (Original) atorvastatin 40 mg oral tablet (7 sources) HMG-CoA Reductase Inhibitor Start: 06-06-2021 take 1 tablet by mouth once daily Atorvastatin 40 mg tablet Active 40 mg PO DAILY June 06, 2021 12:00am Cranberry (1 source) Non-Standardized Food Allergenic Extract, Non-Standardized Plant Allergenic Extract Start: 10-29-2024 take 1 capsule by mouth twice daily at mealtime Cranberry 500 mg capsule Active 500 mg PO TWICE A DAY October 29, 2024 12:00am administer with meals 120 actuat fluticasone propionate 0.22 mg/actuat metered dose inhaler (6 sources) Corticosteroid Start: 06-06-2021 Fluticasone Propionate (Flovent Hfa) 220 mcg/actuation HFA aerosol inhaler Active 2 NMA INHALATION TWICE A DAY June 06, 2021 12:00am Start: 06-06-2021 Fluticasone Pr opionate (Flovent Hfa) 220 mcg/actuation HFA aerosol inhaler Active 2 INH INHALATION TWICE A DAY June 06, 2021 12:00am Fluticasone Propionate (Flovent Hfa) 220 mcg/actuation HFA aerosol inhaler (1 source) Start: 06-06-2021 Fluticasone Propionate (Flovent Hfa) 220 mcg/actuation HFA aerosol inhaler Active 2 NMA INHALATION TWICE A DAY June 06, 2021 12:00am glucosamine sulfate 500 mg oral tablet (1 source) Start: 10-29-2024 take 1 tablet by mouth once daily Glucosamine Sulfate (Glucosamine) 500 mg tablet Active 500 mg PO daily October 29, 2024 12:00am administer with a meal hydroCHLOROthiazide 25 mg / lisinopril 20 mg oral tablet (1 source) Thiazide Diuretic, Angiotensin Converting Enzyme Inhibitor Start: 10-29-2024 Lisinopril-Hydroch lorothiazide 20-25 mg tablet Active 1 {tbl} PO daily October 29, 2024 12:00am L.Shari Torres Jen,Rhamno -Bact (Azo Dual Protection) 5 billion cell- 15 mg capsule (1 source) Start: 10-29-2024 take 1 capsule by mouth once daily L.CrisShari griffiths,Lesley, Rhamno-Bact (Azo Dual Protection) 5 billion cell- 15 mg capsule Active NMA PO daily October 29, 2024 12:00am montelukast 10 mg oral tablet (7 sources) Leukotriene Receptor Antagonist Start: 06-06-2021 take 1 tablet by mouth once daily Montelukast (Singulair) 10 mg tablet Active 10 mg PO DAILY June 06, 2021 12:00am Problems Problem Classification Problem Date Documented Da te Episodic/Chronic Anal and rectal conditions (7 sources) Solitary rectal ulcer syndrome; Translations: [Ulcer of anus and rectum] Episodic Essential hypertension (3 sources) Essential (primary) hypertension; Translations: [Hypertensive disorder] Onset: 4 10-29-2024 Chronic Other gastrointestinal disorders (7 sources) Disorder of colon; Translations: [Disease of intestine, unspecified] 04-11-2021 Episodic Other gastrointestinal disorders (7 sources) Constipation; Translations: [Constipation, unspecified] 04-11-2021 Episodic Other injuries and conditions due to external causes (2 sources) Aspiration into respiratory tract; Translations: [Unspecified foreign body in respiratory tract, part unspecified causing other injury, initial encounter] 07-20-2024 Episodic Other lower respiratory disease (2 sources) Cough; Translations: [Cough] 07-20-2024 Episodic Other screening for suspected conditions (not mental disorders or infectious disease) (9 sources) Imaging of gastrointestinal tract abnormal; Translations: [Abnormal findings on diagnostic imaging of other parts of digestive tract] Episodic Unclassified (1 source) Cough, unspecified; Translations: [Cough, unspecified] Onset: 5 Urinary tract infections (7 sources) Acute urinary tract infection; Translations: [Urinary tract infection, site not specified] 04-11-2021 Episodic Results Test Name Value Interpretation Reference Range Facility Emergency Department Summary on 07-20-2024 Emergency Department Summary [facility] Medical Records Department [address] [place] [address] Emergency Department Summary 07/20/24 MR#: [id number] Acct: [id number] Name: ANTONI KULKARNI Rep #: [id number] : [id number] 83 From: Stephen Mireles PCP: Dr. Carlie Renner MD Status:DEP ER Location: ED HPI History of Present Illness Chief Complaint: Foreign Body Informant: patient and family Narrative Narrative: Here with daughter for evaluation of choking event 5:30 PM while eating dinner. Daughter states patient was eating broccoli soup and then quinoa salad. She took out the trash came back patient continued to cough. Cough up to ED arrival until 630. Due to busy department she was seen at 8 PM in the room. Symptoms have resolved. Per daughter had an event years ago. History of asthma. Currently denies any symptoms. [facility] Medical History Wears glasses Wears hearing aid Wears dentures Dementia Uses wheelchair Back pain Dietary restriction Difficulty swallowing Cancer Anxiety Depression History of arthritis History of spinal stenosis History of degenerative disc disease Non-smoker Asthma History of hyperlipidemia Home Medications ???Medication ???Instructions ???Recorded ???Last Taken ???Type atorvastatin 40 mg tablet 40 mg PO DAILY 06/06/21 Unknown Hi story fluticasone propionate 220 2 inh inhalation BID 06/06/21 Unkn own History mcg/actuation HFA aerosol inhaler (Flovent HFA) montelukast 10 mg tablet 10 mg PO DAILY 06/06/21 Unknown Hi story (Singulair) Allergy/AdvReac Type Severity Reaction Status Date / Time No Known Allergies Allergy Verified 07/20/24 18:40 Surgical History History of bilateral knee replacement History of hysterectomy Social History Smoking Status: Never smoker ROS ROS ED Constitutional Constitutional ED: Denies fever(s) Cardiovascular Cardiovascular: Denies chest pain Respiratory/Chest Respiratory/Chest: Reports cough Gastrointestinal Gastrointestinal: Denies diarrhea or vomiting Musculoskeletal Musculoskeletal: Denies none Integumentary Denies rash or wounds Neurologic Neurologic: Denies weakness EXAM Physical Exam Const Vital Signs: 07/20/24 18:41 07/20/24 20:22 Temperature 96.4 F L 97.6 F L Temperature Source Temporal Pulse Rate 89 81 Respiratory Rate 18 14 Blood Pressure 120/84 H 118/76 Blood Pressure Mean 96 90 Pulse Ox 98 100 Oxygen Delivery Method Room Air Positive well nourished and well developed General Appearance ED: well developed and NAD HEENT Reports moist mucous membranes normocephalic and atraumatic Eyes General Eye ED: Yes normal appearance of both eyes Neck full ROM Chest Wall Chest: Negative for tenderness Resp normal respiratory effort and normal air movement Resp Narrative: No rales. Effort and Inspection: symmetric chest movement; Negative for respiratory distress Cardio regular rate, regular rhythm and no murmurs Peripheral Pulses: pulses 2+ throughout GI normal to inspection, nondistended, normoactive bowel sounds and non-tender Palpation: Negative for guarding or rebound tenderness present Extremity normal to inspection General Extremety ED: Negative for edema or tenderness General Extremity: Negative for edema Neuro oriented x3 and no sensory deficits noted Sensorium / Orientation: awake and alert Skin no rashes or lesions noted and no wounds MDM MDM MDM Narrative Medical decision making narrative: Interventions / MDM: Differential diagnosis: Aspiration event, history of asthma Diagnosis considered but do not suspect: N/A My EKG interpretation: N/A Imaging independently reviewed and interpreted by myself: N/A External documents reviewed: N/A Test considered but not ordered:N/A ED course: Patient currently asymptomatic for 90 minutes. Vital stable no respiratory distress no rales. Discussed with daughter and patient symptoms can worsen up to 6 hours afterwards. Discussed and offered monitoring in the ED. However daughter states they would like to monitor at home and return if worsens. Therefore patient will be discharged with return precautions. All questions were answered. Re-evaluation: stable Disposition discussed with patient/family/signif icant other: Patient and daughter Case discussed with consulting clinician: N/A This note was generated with [employer] dictation software. It may contain incorrect words, spelling, and punctuation that were not noted in checking the note before signing. Discharge Plan Triage Chief Complaint: Foreign Body ED Provider: Stephen Kaur Dx/Rx/DC Orders Clinical Impressio (more content not included)... Normal [facility] AST(SGOT)on 09-23-2023 AST [Catalytic activity/Vol] 21 U/L Normal 15-37 [facility] Comment on above: Performed By: #### L 501.4405, L501.4100, L500.4100, L500.2500, L501.0900 #### [facility] [address] [place], [address] Alanine Aminotransferas (SGP T)on 09-23-2023 ALT [Catalytic activity/Vol] 23 U/L Normal 13-56 [facility] Comment on above: Performed By: #### L 501.4405, L501.4100, L500.4100, L500.2500, L501.0900 #### [facility] [address] [place], [address] Basic Metabolic Profile (BMP )on 09-23-2023 BUN/CRE 17.5 RATIO Normal 10-20 [facility] Comment on above: Performed By: #### L 501.4405, L501.4100, L500.4100, L500.2500, L501.0900 #### [facility] [address] [place], [address] CA,Total 9.9 mg/dL Normal 8.5-10.1 [facility] Comment on above: Performed By: #### L 501.4405, L501.4100, L500.4100, L500.2500, L501.0900 #### [facility] [address] [place], [address] Chloride [Moles/Vol] 104 mmol/L Normal 98-107 [facility] Comment on above: Performed By: #### L 501.4405, L501.4100, L500.4100, L500.2500, L501.0900 #### [facility] [address] [place], [address] CO2 [Moles/Vol] 27.0 mmol/L Normal 21.0-32.0 [facility] Comment on above: Performed By: #### L 501.4405, L501.4100, L500.4100, L500.2500, L501.0900 #### [facility] [address] [place], [address] Creatinine [Mass/Vol] 1.03 mg/dL High 0.55-1.[address] [facility] Comment on above: Result Comment: The validity of the calculated GFR GFRAA in patients over 70 years has not been determined. Clinical correlation is essential. Performed By: #### L 501.4405, L501.4100, L500.4100, L500.2500, L501.0900 #### [facility] [address] [place], [address] EST GFR - AA 66 mL/min Normal >60 [facility] Comment on above: Result Comment: Afri can Turkish GFR Calc Performed By: #### L 501.4405, L501.4100, L500.4100, L500.2500, L501.0900 #### [facility] [address] [place], [address] GAP 8 Normal 5-15 [facility] Comment on above: Performed By: #### L 501.4405, L501.4100, L500.4100, L500.2500, L501.0900 #### [facility] [address] [place], [address] GFR/1.73 sq M.predicted among non-blacks MDRD (S/P/Bld) [Vol rate/Area] 54 mL/min/{1.73_m2} Low >60 [facility] Comment on above: Result Comment: Non- GFR Calc Performed By: #### L 501.4405, L501.4100, L500.4100, L500.2500, L501.0900 #### [facility] [address] [place], [address] Glucose [Mass/Vol] 113 mg/dL High 74-106 [facility] Comment on above: Result Comment: Fast ing Glucose result from 100 to 125 mg/dL suggests IMPAIRED HOMEOSTASIS per A.D.A. criteria. Performed By: #### L 501.4405, L501.4100, L500.4100, L500.2500, L501.0900 #### [facility] [address] [place], [address] Potassium [Moles/Vol] 3.9 mmol/L Normal 3.5-5.[address] [facility] Comment on above: Performed By: #### L 501.4405, L501.4100, L500.4100, L500.2500, L501.0900 #### [facility] [address] [place], [address] Sodium [Moles/Vol] 139 mmol/L Normal 136-145 [facility] Comment on above: Performed By: #### L 501.4405, L501.4100, L500.4100, L500.2500, L501.0900 #### [facility] [address] [place], [address] Urea nitrogen [Mass/Vol] 18 mg/dL Normal 7-18 [facility] Comment on above: Performed By: #### L 501.4405, L501.4100, L500.4100, L500.2500, L501.0900 #### [facility] [address] [place], [address] Lipid Profileon 09-23-2023 Cholesterol [Mass/Vol] 139 mg/dL Normal 200 [facility] Comment on above: Result Comment: <200 mg/dL Desirable 200-240 mg/dL Borderline >240 mg/dL High Risk Performed By: #### L 501.4405, L501.4100, L500.4100, L500.2500, L501.0900 #### [facility] [address] [place], [address] Cholesterol in HDL [Mass/Vol] 71 mg/dL Normal [facility] Comment on above: Result Comment: The drugs N-Acetylcysteine and Metamizole may falsely depress this assay. Reference Range HDL <40 mg/dL Low HDL Cholesterol HDL >or= 60 mg/dL High HDL Cholesterol Performed By: #### L 501.4405, L501.4100, L500.4100, L500.2500, L501.0900 #### [facility] [address] [place], [address] Cholesterol in LDL [Mass/Vol] 52 mg/dL Normal 0-130 [facility] Comment on above: Performed By: #### L 501.4405, L501.4100, L500.4100, L500.2500, L501.0900 #### [facility] [address] [place], [address] Cholesterol in VLDL [Mass/Vol] 16 mg/dL Normal 5-40 [facility] Comment on above: Performed By: #### L 501.4405, L501.4100, L500.4100, L500.2500, L501.0900 #### [facility] [address] [place], [address] Triglyceride [Mass/Vol] 82 mg/dL Normal [facility] Comment on above: Result Comment: The drugs N-Acetylcysteine and Metamizole may falsely depress this assay. Serum Triglycerides Reference Interval Normal <150 mg/dL Borderline high 150 - 199 mg/dL High 200 - 499 mg/dL Very High > or = 500 mg/dL Performed By: #### L 501.4405, L501.4100, L500.4100, L500.2500, L501.0900 #### [facility] [address] [place], [address] Protein+Creatinine Ratio,Uri neon 09-23-2023 PROT:CRE RATIO 174 mg/g CRE Normal 0-200 [facility] Comment on above: Result Comment: CARMELA ENT UTO. PATIENT WILL BE BRINGING BACK URINE Performed By: #### L 501.4405, L501.4100, L500.4100, L500.2500, L501.0900 #### [facility] [address] [place], [address] Protein (U) [Mass/Vol] 13.6 mg/dL High <11.9 [facility] Comment on above: Result Comment: CARMELA ENT UTO. PATIENT WILL BE BRINGING BACK URINE Performed By: #### L 501.4405, L501.4100, L500.4100, L500.2500, L501.0900 #### [facility] [address] [place], [address] UR CREAT 78.30 mg/dL Normal NO RANGE EST. [facility] Comment on above: Result Comment: CARMELA ENT UTO. PATIENT WILL BE BRINGING BACK URINE Performed By: #### L 501.4405, L501.4100, L500.4100, L500.2500, L501.0900 #### [facility] [address] [place], [address] Basophil percentageOrdered B y: Carlie Renner on 09-17-2022 Chloride [Moles/Vol] 104 mmol/L 98-107 [facility] Glucose [Mass/Vol] 99 mg/dL 74-106 [facility] Potassium [Moles/Vol] 4.2 mmol/L 3.5-5.[address] [facility] Sodium [Moles/Vol] 139 mmol/L 136-145 [facility] Laboratory - Chemistry and C hemistry - challengeOrdered By: Carlie Renner on 09-17-2022 CO2 [Moles/Vol] 28.0 mmol/L 21.0-32.0 [facility] Urea nitrogen/Creatinine [Mass ratio] 14.4 mg/mg 10-20 [facility] No Panel InformationOrdered By: Carlie Renner on 09-17-2022 Estimated GFR (MDRD) Amer 84 mL/min >60 [facility] Comment on above: GFR Calc Estimated GFR (MDRD) Non-Af Amer 69 mL/min >60 [facility] Comment on above: Non- GFR Calc Serum or plasma calcium hailey urement (mass/volume)Ordered By: Carlie Renner on 09-17-2022 Calcium [Mass/Vol] 9.4 mg/dL 8.5-10.1 [facility] Serum or plasma creatinine m easurement (mass/volume)Ordered By: Carlie Renner on 09-17-2022 Creatinine [Mass/Vol] 0.84 mg/dL 0.55-1.[address] [facility] Comment on above: The validity of the calculated GFR & GFRAA in patients over 70 years has not been determined. Clinical correlation is essential. Serum or plasma urea nitroge n measurement (mass/volume)Ordered By: Carlie Renner on 09-17-2022 Urea nitrogen [Mass/Vol] 12 mg/dL -18 [facility] Thin prep Papanicolaou smear with manual screeningOrdered By: Carlie Renner on 09-17-2022 Thin prep Papanicolaou smear with manual screening 7 5-15 [facility] Basophil percentageOrdered B y: Dr. Renner on 03-20-2022 Chloride [Moles/Vol] 107 mmol/L 98-107 [facility] Cholesterol [Mass/Vol] 164 mg/dL <200 [facility] Comment on above: <200 mg/dL Desirable 200-240 mg/dL Borderline >240 mg/dL High Risk Glucose [Mass/Vol] 85 mg/dL 74-106 [facility] Potassium [Moles/Vol] 4.2 mmol/L 3.5-5.[address] [facility] Sodium [Moles/Vol] 143 mmol/L 136-145 [facility] Triglyceride [Mass/Vol] 114 mg/dL <199 [facility] Comment on above: The drugs N-Acetylcy steine and Metamizole may falsely depress this assay.Serum Triglycerides Reference Interval Normal <150 mg/dL Borderline high 150 - 199 mg/dL High 200 - 499 mg/dL Very High > or = 500 mg/dL Laboratory - Chemistry and C hemistry - challengeOrdered By: Dr. Renner on 03-20-2022 ALT [Catalytic activity/Vol] 23 U/L 13-56 [facility] CO2 [Moles/Vol] 29.0 mmol/L 21.0-32.0 [facility] Urea nitrogen/Creatinine [Mass ratio] 27.5 mg/mg 10-20 [facility] No Panel InformationOrdered By: Dr. Renner on 03-20-2022 Estimated GFR (MDRD) Amer 99 mL/min >60 [facility] Comment on above: GFR Calc Estimated GFR (MDRD) Non-Af Amer 82 mL/min >60 [facility] Comment on above: Non- GFR Calc Serum or plasma calcium hailey urement (mass/volume)Ordered By: Dr. Renner on 03-20-2022 Calcium [Mass/Vol] 9.5 mg/dL 8.5-10.1 [facility] Serum or plasma cholesterol in HDL measurement (mass/volume)Ordered By: Dr. Renner on 03-20-2022 Cholesterol in HDL [Mass/Vol] 77 mg/dL >40 [facility] Comment on above: The drugs N-Acetylcy steine and Metamizole may falsely depress this assay. Reference Range HDL <40 mg/dL Low HDL Cholesterol HDL >or= 60 mg/dL High HDL Cholesterol Serum or plasma cholesterol in VLDL measurement (mass/volume)Ordered By: Dr. Renner on 03-20-2022 Cholesterol in VLDL [Mass/Vol] 23 mg/dL 5-40 [facility] Serum or plasma creatinine m easurement (mass/volume)Ordered By: Dr. Renner on 03-20-2022 Creatinine [Mass/Vol] 0.73 mg/dL 0.55-1.[address] [facility] Comment on above: The validity of the calculated GFR & GFRAA in patients over 70 years has not been determined. Clinical correlation is essential. Serum or plasma low density lipoprotein (LDL) cholesterol measurement (mass/volume)Ordered By: Dr. Renner on 03-20-2022 Cholesterol in LDL [Mass/Vol] 64 mg/dL 0-130 [facility] Serum or plasma urea nitroge n measurement (mass/volume)Ordered By: Dr. Renner on 03-20-2022 Urea nitrogen [Mass/Vol] 20 mg/dL 7-18 [facility] Thin prep Papanicolaou smear with manual screeningOrdered By: Dr. Renner on 03-20-2022 Thin prep Papanicolaou smear with manual screening 14 U/L 15-37 [facility] Thin prep Papanicolaou smear with manual screening 7 5-15 [facility] Absolute lymphocyte counton 04-03-2021 Lymphocytes Auto (Unsp spec) [#/Vol] 1.58 10*3/uL 0.83-4.51 [facility] Work Phone: Basophil percentageon 2021 Basophil percentage 10-25 SEEN /hpf [facility] Work Phone: Basophils/100 WBC (Bld) 0.3 % 0-1 [facility] Work Phone: Bilirubin [Mass/Vol] 0.70 mg/dL 0.20-1.00 [facility] Work Phone: Comment on above: For patients on eltr ombopag therapy, use of Dimension [place] TBIL is not recommended. Chloride [Moles/Vol] 100 mmol/L 98-107 [facility] Work Phone: Eosinophils/100 WBC (Bld) 0.6 % 0-5 [facility] Work Phone: Glucose [Mass/Vol] 110 mg/dL 74-106 [facility] Work Phone: Comment on above: Fasting Glucose resu lt from 100 to 125 mg/dL suggests IMPAIRED HOMEOSTASIS per A.D.A. criteria. Neutrophils (Bld) [#/Vol] 4.1 10*3/uL 2.0-7.7 [facility] Work Phone: Neutrophils/100 WBC (Bld) 64.9 % 47-70 [facility] Work Phone: Potassium [Moles/Vol] 3.0 mmol/L 3.5-5.[address] [facility] Work Phone: Protein [Mass/Vol] 5.8 g/dL 6.4-8.2 [facility] Work Phone: Sodium [Moles/Vol] 136 mmol/L 136-145 [facility] Work Phone: WBC (Bld) [#/Vol] 6.3 10*3/uL 4.4-11.0 [facility] Work Phone: Bilirubin Test strip Ql (U)o n 04-03-2021 Bilirubin Ql (U) Negative Negative [facility] Work Phone: Blood erythrocytes count (nu mber/volume)on 04-03-2021 RBC (Bld) [#/Vol] 4.55 10*6/uL 4.2-5.4 [facility] Work Phone: Blood hemoglobin measurement (mass/volume)on 04-03-2021 Hemoglobin (Bld) [Mass/Vol] 13.1 g/dL 12.0-15.0 [facility] Work Phone: Blood lymphocytes/100 leukoc yteson 04-03-2021 Lymphocytes/100 WBC (Bld) 25.1 % 19-41 [facility] Work Phone: Blood monocytes/100 leukocyt eson 04-03-2021 Monocytes/100 WBC (Bld) 8.1 % 0-10 [facility] Work Phone: Blood platelet mean volumeon 04-03-2021 Platelet mean volume (Bld) [Entitic vol] 10.2 fL 6.2-12.0 [facility] Work Phone: Determination of erythrocyte mean corpuscular volume (MCV)on 04-03-2021 MCV (RBC) [Entitic vol] 86.6 fL 81-99 [facility] Work Phone: Hematocrit Auto (Bld) [Volum e fraction]on 04-03-2021 Hematocrit (Bld) [Volume fraction] 39.4 % 37-47 [facility] Work Phone: Ketones Test strip Ql (U)on 04-03-2021 Ketones Ql (U) 5 mg/dl Negative [facility] Work Phone: Laboratory - Chemistry and C hemistry - challengeon 04-03-2021 ALP [Catalytic activity/Vol] 100 U/L 45-117 [facility] Work Phone: ALT [Catalytic activity/Vol] 22 U/L 13-56 [facility] Work Phone: CO2 [Moles/Vol] 29.0 mmol/L 21.0-32.0 [facility] Work Phone: Globulin (S) [Mass/Vol] 2.9 g/dL 2.2-4.2 [facility] Work Phone: Urea nitrogen/Creatinine [Mass ratio] 23.8 mg/mg 10-20 [facility] Work Phone: Laboratory - Hematology and Cell countson 04-03-2021 Erythrocyte distribution width (RBC) [Entitic vol] 51.4 fL 35.1-43.9 [facility] Work Phone: Erythrocyte distribution width (RBC) [Ratio] 16.3 % 11.6-14.6 [facility] Work Phone: Immature granulocytes/100 WBC (Bld) 1.000 % 0.0-0.9 [facility] Work Phone: Comment on above: IG% - Immature Granu locytes (promyelocytes, myelocytes and metamyelocytes) > 1% indicates that a LEFT SHIFT is Present. MCH (RBC) [Entitic mass] 28.8 pg 27.0-32.0 [facility] Work Phone: Nucleated RBC/100 WBC (Bld) [Ratio] 0 % 0-5 [facility] Work Phone: MCHC Auto (RBC) [Mass/Vol]on 04-03-2021 MCHC (RBC) [Mass/Vol] 33.2 g/dL 32-[address] [facility] Work Phone: Mucus LM Ql (Urine sed)on Mucus Ql (Urine sed) 0 SEEN /hpf [facility] Work Phone: Nitrite Test strip Ql (U)on 04-03-2021 Nitrite Ql (U) Positive Negative [facility] Work Phone: No Panel Informationon 04-03 Estimated Creatinine Clearance Calc 46.40 ml/min [facility] Work Phone: Estimated GFR (MDRD) Amer 89 mL/min >60 [facility] Work Phone: Comment on above: GFR Calc Estimated GFR (MDRD) Non-Af Amer 74 mL/min >60 [facility] Work Phone: Comment on above: Non- GFR Calc Platelets bldon 04-03-2021 Platelets (Bld) [#/Vol] 188 10*3/uL 150-450 [facility] Work Phone: Protein Test strip Ql (U)on 04-03-2021 Protein Ql (U) 30 mg/dl Negative [facility] Work Phone: Serum or plasma albumin hailey urement (mass/volume)on 04-03-2021 Albumin [Mass/Vol] 2.9 g/dL 3.2-5.0 [facility] Work Phone: Serum or plasma albumin/glob ulin mass ratioon 04-03-2021 Albumin/Globulin [Mass ratio] 1.0 {ratio} 0.9-2.4 [facility] Work Phone: Serum or plasma calcium hailey urement (mass/volume)on 04-03-2021 Calcium [Mass/Vol] 9.1 mg/dL 8.5-10.1 [facility] Work Phone: Serum or plasma creatinine m easurement (mass/volume)on 04-03-2021 Creatinine [Mass/Vol] 0.80 mg/dL 0.55-1.[address] [facility] Work Phone: Comment on above: The validity of the calculated GFR & GFRAA in patients over 70 years has not been determined. Clinical correlation is essential. Serum or plasma urea nitroge n measurement (mass/volume)on 04-03-2021 Urea nitrogen [Mass/Vol] 19 mg/dL 7-18 [facility] Work Phone: Squamous epithelial cells de tection in urine sediment by light microscopyon 04-03-2021 Epithelial cells.squamous LM Ql (Urine sed) 0-5 SEEN /hpf [facility] Work Phone: Thin prep Papanicolaou smear with manual screeningon 04-03-2021 Thin prep Papanicolaou smear with manual screening 22 U/L 15-37 [facility] Work Phone: Thin prep Papanicolaou smear with manual screening 7 5-15 [facility] Work Phone: Urine blood detectionon 02-0 RBC Ql (U) 50 /ul Negative [facility] Work Phone: RBC Ql (U) 0-5 SEEN /hpf [facility] Work Phone: Urine clarityon 04-03-2021 Clarity (U) Cloudy Clear [facility] Work Phone: Urine color determinationon 04-03-2021 Color (U) Yellow Yellow [facility] Work Phone: Urine glucose detectionon Glucose Ql (U) Normal mg/dl Normal [facility] Work Phone: Urine leukocyte esterase det ection by dipstickon 04-03-2021 Leukocyte esterase Test strip Ql (U) 500 /ul Negative [facility] Work Phone: Urine pHon 04-03-2021 pH (U) 5.0 [pH] [facility] Work Phone: Urine sediment bacteria coun t by microscopy (number/high power field)on 04-03-2021 Bacteria LM.HPF (Urine sed) [#/Area] 3 /[HPF] None Seen [facility] Work Phone: Urine specific gravity measu rementon 04-03-2021 Specific gravity (U) [Rel density] 1.025 [facility] Work Phone: Urobilinogen Auto test strip Ql (U)on 04-03-2021 Urobilinogen Ql (U) 1 mg/dl Normal [facility] Work Phone: Basophil percentageon 2020 Chloride [Moles/Vol] 103 mmol/L 98-107 [facility] Work Phone: Cholesterol [Mass/Vol] 130 mg/dL <200 [facility] Work Phone: Comment on above: <200 mg/dL Desirable 200-240 mg/dL Borderline >240 mg/dL High Risk Glucose [Mass/Vol] 100 mg/dL 74-106 [facility] Work Phone: Comment on above: Fasting Glucose resu lt from 100 to 125 mg/dL suggests IMPAIRED HOMEOSTASIS per A.D.A. criteria.Please note revised GLUCOSE reference range effective 2017. Potassium [Moles/Vol] 3.7 mmol/L 3.5-5.[address] [facility] Work Phone: Sodium [Moles/Vol] 138 mmol/L 136-145 [facility] Work Phone: Triglyceride [Mass/Vol] 93 mg/dL [facility] Work Phone: Comment on above: The drugs N-Acetylcy steine and Metamizole may falsely depress this assay.Serum Triglycerides Reference Interval Normal <150 mg/dL Borderline high 150 - 199 mg/dL High 200 - 499 mg/dL Very High > or = 500 mg/dL Laboratory - Chemistry and C hemistry - challengeon 02-16-2021 ALT [Catalytic activity/Vol] 35 U/L 13-56 [facility] Work Phone: CO2 [Moles/Vol] 27.0 mmol/L 21.0-32.0 [facility] Work Phone: Urea nitrogen/Creatinine [Mass ratio] 19.4 mg/mg 10-20 [facility] Work Phone: No Panel Informationon 02-16 Estimated GFR (MDRD) Amer 80 mL/min >60 [facility] Work Phone: Comment on above: GFR Calc Estimated GFR (MDRD) Non-Af Amer 66 mL/min >60 [facility] Work Phone: Comment on above: Non- GFR Calc Serum or plasma calcium hailey urement (mass/volume)on 02-16-2021 Calcium [Mass/Vol] 10.0 mg/dL 8.5-10.1 [facility] Work Phone: Serum or plasma cholesterol in HDL measurement (mass/volume)on 02-16-2021 Cholesterol in HDL [Mass/Vol] 60 mg/dL [facility] Work Phone: Comment on above: The drugs N-Acetylcy steine and Metamizole may falsely depress this assay. Reference Range HDL <40 mg/dL Low HDL Cholesterol HDL >or= 60 mg/dL High HDL Cholesterol Serum or plasma cholesterol in VLDL measurement (mass/volume)on 02-16-2021 Cholesterol in VLDL [Mass/Vol] 19 mg/dL 5-40 [facility] Work Phone: Serum or plasma creatinine m easurement (mass/volume)on 02-16-2021 Creatinine [Mass/Vol] 0.88 mg/dL 0.55-1.[address] [facility] Work Phone: Comment on above: The validity of the calculated GFR & GFRAA in patients over 70 years has not been determined. Clinical correlation is essential. Serum or plasma low density lipoprotein (LDL) cholesterol measurement (mass/volume)on 02-16-2021 Cholesterol in LDL [Mass/Vol] 51 mg/dL 0-130 [facility] Work Phone: Serum or plasma urea nitroge n measurement (mass/volume)on 02-16-2021 Urea nitrogen [Mass/Vol] 17 mg/dL 7-18 [facility] Work Phone: Thin prep Papanicolaou smear with manual screeningon 02-16-2021 Thin prep Papanicolaou smear with manual screening 34 U/L 15-37 [facility] Work Phone: Thin prep Papanicolaou smear with manual screening 8 5-15 [facility] Work Phone: Dermatopathologyon 7 Dermatopathology Pathologist: NIDA PEREIRA, MDDate of Procedure: 11/21/2016Date Received: 11/22/2016Date Reported 11/25/2016Submitting Physician: SELVIN MUSTAFA MDLocation: ADERM FINAL DIAGNOSISSKIN, RIGHT UPPER ANT GARCIA, SHAVE BIOPSY:INFLAMED MODERATELY DYSPLASTIC JUNCTIONAL NEVUS, INKED MARGINS FREE IN PLANESOF SECTIONS EXAMINED. Electronically Signed Out by NIDA PEREIRA M.D. Electronically SignedOut By NIDA PEREIRA MD/[facility] Microscopic Description:Microscop ic analysis shows an asymmetric proliferation of melanocytes, withlentiginous hyperplasia of epidermis. In addition to melanocytes that nestirregularly along the dermal-epidermal junction, other features of dysplasiainclude melanocyte bridging, papillary dermal fibroplasia, melanophages, andinflammatory cells in papillary dermis. The melanocytes show random cytologicatypia.[facility] History:R/O DPN. Shave biopsy. ([facility]) Specimens Submitted As:A: SKIN, RIGHT UPPER ANT GARCIA Gross Description:Received in formalin is one montilla-brown piece of skin measuring 7 x 7 x 1 mm. Inked and embedded in toto.[facility]/11/22/2016 Normal [facility] Comment on above: Performed By: #### D ####Dermatopathology Vital Signs Date Time Vital Sign Value Performing Clinician Faci lity 10-29-2024 12:58-0400 Body height 160.[address] Carlie Renner MD Work Phone: [facility] 10-29-2024 12:58-0400 Body mass index (BMI) [Ratio] 32.8 kg/m2 Dr. Carlie Renner MD Work Phone: [facility] 10-29-2024 12:58-0400 Body temperature 97.2 [degF] Dr. Carlie Renner MD Work Phone: [facility] 10-29-2024 12:58-0400 Body weight 83.[address] Carlie Renner MD Work Phone: [facility] 10-29-2024 12:58-0400 Diastolic blood pressure 66 mm[Hg] Dr. Carlie Renner MD Work Phone: [facility] 10-29-2024 12:58-0400 Heart rate 63 /min Dr. Carlie Renner MD Work Phone: 6(223)956-746471 [place] [address] 10-29-2024 12:58-0400 Respiratory rate 16 /min Dr. Carlie Renner MD Work Phone: [facility] 10-29-2024 12:58-0400 SaO2% (BldA) [Mass fraction] 97 % Dr. Carlie Renner MD Work Phone: [facility] 10-29-2024 12:58-0400 Systolic blood pressure 120 mm[Hg] Dr. Carlie Renner MD Work Phone: [facility] 07-20-2024 20:22-0400 Body temperature 97.6 [degF] Dr. Carlie Renner MD Work Phone: 9(906)680-646271 [place] [address] 07-20-2024 20:22-0400 Diastolic blood pressure 76 mm[Hg] Dr. Carlie Renner MD Work Phone: 1(419)650-320371 [place] [address] 07-20-2024 20:22-0400 Heart rate 81 /min Dr. Carlie Renner MD Work Phone: [facility] 07-20-2024 20:22-0400 Respiratory rate 14 /min Dr. Carlie Renner MD Work Phone: [facility] 07-20-2024 20:22-0400 SaO2% (BldA) [Mass fraction] 100 % Dr. Carlie Renner MD Work Phone: 5(038)576-520271 [place] [address] 07-20-2024 20:22-0400 Systolic blood pressure 118 mm[Hg] Dr. Carlie Renner MD Work Phone: [facility] 07-20-2024 18:41-0400 Body height 160.[address] Carlie Renner MD Work Phone: [facility] 06-07-2021 12:14-0400 Body temperature 97.4 [degF] Dr. Carlie Renner Work Phone: [facility] Work Phone: 06-07-2021 12:14-0400 Diastolic blood pressure 81 mm[Hg] Dr. Carlie Renner Work Phone: [facility] Work Phone: 06-07-2021 12:14-0400 Heart rate 85 /min Dr. Carlie Renner Work Phone: [facility] Work Phone: 06-07-2021 12:14-0400 Respiratory rate 16 /min Dr. Carlie Renner Work Phone: [facility] Work Phone: 06-07-2021 12:14-0400 SaO2% (BldA) [Mass fraction] 97 % Dr. Carlie Renner Work Phone: [facility] Work Phone: 06-07-2021 12:14-0400 Systolic blood pressure 125 mm[Hg] Dr. Carlie Renner Work Phone: [facility] Work Phone: 06-07-2021 10:36-0400 Body height 160.[address] Carlie Renner Work Phone: [facility] Work Phone: 06-07-2021 10:36-0400 Body mass index (BMI) [Ratio] 33.5 kg/m2 Dr. Carlie Renner Work Phone: [facility] Work Phone: 06-07-2021 10:36-0400 Body weight [address] Carlie Renner Work Phone: [facility] Work Phone: 04-03-2021 17:47-0500 Diastolic blood pressure 76 mm[Hg] Dr. Carlie Renner Work Phone: [facility] Work Phone: 04-03-2021 17:47-0500 Heart rate 96 /min Dr. Carlie Renner Work Phone: [facility] Work Phone: 04-03-2021 17:47-0500 Respiratory rate 15 /min Dr. Carlie Renner Work Phone: [facility] Work Phone: 04-03-2021 17:47-0500 SaO2% (BldA) [Mass fraction] 97 % Dr. Carlie Renner Work Phone: [facility] Work Phone: 04-03-2021 17:47-0500 Systolic blood pressure 130 mm[Hg] Dr. Carlie Renner Work Phone: [facility] Work Phone: 04-03-2021 10:52-0500 Body mass index (BMI) [Ratio] 33.6 kg/m2 Dr. Carlie Renner Work Phone: [facility] Work Phone: 04-03-2021 10:52-0500 Body temperature 97.1 [degF] Dr. Carlie Renner Work Phone: [facility] Work Phone: 04-03-2021 10:52-0500 Body weight 86.[address] Carlie Renner Work Phone: [facility] Work Phone: Encounters Encounter Date Encounter Type Care Provider Facility Start: 10-29-2024 End: 10-29-[address] Carlie Renner MD Work Phone: -[facility] Start: 10-29-2024 End: 10-29-[address] Anni Drummond MD -[facility] Work Phone: Start: 07-20-2024 End: 07-20-2024 Emergency department patient visit Dr. Carlie Renner MD Work Phone: -Emergency Department Work Phone: Start: 09-24-2023 ambulatory Carlie Renner Facility: [facility] Start: 09-23-2023 End: 09-23-2023 ambulatory Carlie Renner Facility:[facility] Start: 09-17-2022 End: 09-17-[address] [facility] Work Phone: Start: 09-17-2022 End: 09-17-2022 Patient encounter procedure [facility] Start: 03-20-2022 End: 03-20-[address] [facility] Work Phone: Start: 03-20-2022 End: 03-20-2022 Patient encounter procedure [facility] Start: 06-21-2021 End: 06-21-[address] Carlie Renner Work Phone: [facility] Gastro[facility] Start: 06-07-2021 Non-patient / Non-visit Dr. Carlie Renner Work Phone: [facility] Start: 06-07-2021 End: 06-07-2021 Admission to same day surgery center Dr. Carlie Renner Work Phone: [facility]-Endoscopy Start: 04-18-2021 End: 04-18-[address] Carlie Renner Work Phone: [facility] Start: 04-03-2021 End: 04-03-2021 Emergency department patient visit Dr. Carlie Renner Work Phone: [facility]-Emergency Department Start: 04-03-[address] Carlie heath Work Phone: [facility]-Physical Therapy Start: 03-28-2021 End: 03-28-[address] Carlie Renner [facility] Start: 03-21-[address] Carlie heath Work Phone: [facility]-Massage Therapy, [facility] Start: 02-16-[address] Carlie Renner Work Phone: [facility]-Laboratory, [facility] Start: 11-21-2016 Ambulatory Selvin Mustafa Facilit [id number] Start: 11-21-2016 Ambulatory Nida Tiani [id number] Procedures Date Procedure Procedure Detail Performing Clinician Start: 06-07-[address] Carlie renteria Work Phone: Start: 04-03-2021 CT of abdomen and pe lvis without contrast Dr. Carlie Renner Work Phone: Start: 03-28-2021 X-ray of lumbosacral spine Dr. Carlie Renner Work Phone: Plan of Treatment Date Care Activity Detail Author Start: 07-20-2024 [facility] Start: 06-07-2021 Colonoscopy w/biopsy single/multiple COLONOSCOPY AND BIOPSY [facility] Work Phone: Start: 06-07-2021 Colsc flx w/rmvl of tumor polyp lesion snare tq COLONOSCOPY W/LESION REMOVAL [facility] Work Phone: Start: 06-07-2021 Patient discharge [facility] Work Phone: CBC W Auto Different ial panel - Blood [facility] Comprehensive metabo lic 2000 panel - Serum or Plasma [facility] Lipid 1996 panel - S lavonne or Plasma [facility] Patient Education [facility] Work Phone: Patient referral [facility] Work Phone: T4 free measurement [facility] Thyroid stimulating hormone measurement [facility] Immunizations Immunization Date Immunization Notes Care Provider Fa cilielian 12-22-2017 tetanus toxoid, redu sheree diphtheria toxoid, and acellular pertussis vaccine, adsorbed Dr. Carlie Renner Work Phone: [facility] Payers Date Payer Category Payer Self-pay [id number] 2005 Medicare [id number] 2005 Private Health Insurance [id number] Medicare [id number] Unknown [id number] Unknown [id number] Unknown [id number] Social History Date Type Detail Facility Start: 06-06-2021 End: 06-21-2021 Tobacco smoking status NHIS Unknown if ever smoked [facility] Start: 1940 Sex Assigned At Female W [facility] Start: 07-20-2024 Tobacco smoking stat us OKIS Never smoked tobacco (finding) [facility] Goals Date Patient Goal Desired Activity /State Mental Status Date Assessment Result Facility 07-20-2024 Cognitive function Level Of Cons ciousness Awake;Alert;Appropriate [facility] Work Phone: 06-07-2021 Cognitive function Voice/Name [facility] Work Phone: Evaluation note Note Date & Type Note Facility Evaluation note Diagnosis Onset Date Abnormal CT scan, gastrointestinal tract acute [facility] Work Phone: Evaluation note Note Date & Type Note Facility Evaluation note Diagnosis Onset Date Abnormal CT scan, gastrointestinal tract acute Solitary rectal ulcer syndrome acute [facility] Work Phone: Evaluation note Note Date & Type Note Facility Evaluation note No assessment information availa ble [facility] Work Phone: Hospital Discharge instructions Note Date & Type Note Facility Hospital Discharge instructions Additional Instructions Symptoms resolved. If you develop any respiratory distress, return to ED for reevaluation. [facility] Work Phone: Reason for referral (narrative) Note Date & Type Note Facility Reason for referral (narrative) No reason for referral information available [facility] Work Phone: Summary Purpose Family History Relationship Condition Age at Onset Recorded Date/T jyoti mother Cardiac disease Unknown daughter Malignant neoplasm of cervix Unknown Advance Directives Advance Directive Response Recorded Date/ Time Living Will Yes June 06, 2021 8:09am Power of Welding Machine Operator Resistance Yes June 06 8:09am Advance Directive Response Recorded Date/ Time Name of Medical Power of Welding Machine Operator Resistance ester Augustin June 06, 2021 8:09am Living Will Yes June 06, 2021 8:09am Power of Welding Machine Operator Resistance Yes June 06 8:09am Advance Directive Response Recorded Date/ Time Living Will Yes June 06, 2021 7:09am Power of Welding Machine Operator Resistance Yes June 06 7:09am Advance Directive Response Recorded Date/ Time Do you have a Healthcare Power of Welding Machine Operator Resistance? 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 BACK ER/RECTAL MASS Reason for Visit Abnormal CT scan, ga strointestinal tract Chief Complaint 2w post scope Reason for Visit Abnormal CT scan, ga strointestinal tract Solitary rectal ulcer syndrome Chief Complaint Admit Date foreign July 20, 2024 6:40p m Chief Complaint Admit Date foreign July 20, 2024 6:40p m EST NEW PT - HAS PPWK October 29, 2024 12:48pm Additional Source Comments INFORMATION SOURCE (unrecogn ized section and content) DATE CREATED AUTHOR 08/27/2017 [facility] DATE CREATED AUTHOR AUTHOR'S ORGANIZ ATION 07/31/2024 [facility] Goals (unrecognized section and content) Goals may be documented in a n alternate sectionGoals may be documented in an alternate sectionGoals may be documented in an alternate sectionGoals may be documented in an alternate sectionGoals may be documented in an alternate sectionGoals may be documented in an alternate section Care Teams (unrecognized sec tion and content) Team Status: Active Member Role Status Dates Dr. Carlie Renner MD Family Provider Active Dr. Carlie Renner MD Primary Care Provider Active Team Status: Inactive Member Role Status Dates Dr. Carlie Renner MD Primary Care Provider, [facility] Provider Active Team Status: Active Member Role Status Dates Dr. Carlie Renner MD Primary Care Provider Active Team Status: Inactive Member Role Status Dates Dr. Carlie Renner MD Primary Care Provider Active Start: July 20, 2024 End: July 20, 2024 Dr. Stephen Kaur DO Emergency Provider Active Start : July 20, 2024 End: July 20, 2024 Team Status: Active Member Role/Relationship Status Dates Dr. Carlie Renner MD Primary Care Provider Active Team Status: Inactive Member Role/Relationship Status Dates Dr. Carlie Renner MD Primary Care Provider Active Start: July 20, 2024 End: July 20, 2024 Dr. Stephen Kaur DO Attending Provider Active Start : July 20, 2024 End: July 20, 2024 Dr. Stephen Kaur DO Emergency Provider Active Start : July 20, 2024 End: July 20, 2024 Team Status: Inactive Member Role/Relationship Status Dates Dr. Carlie Renner MD Primary Care Provider Active Start: October 29, 2024 End: October 29, 2024 Dr. Carlie Renner MD Referring Provider Active Start: October 29, 2024 End: October 29, 2024 Dr. Anni Drummond MD Attending Provider Active Start: October 29, 2024 End: October 29, 2024 FOR RECORDS PERTAINING TO PATIENTS WHO ARE OR HAVE BEEN ENROLLED IN A CHEMICAL DEPENDENCY/SUBSTANCEABUSE PROGRAM, SOME INFORMATION MAY BE OMITTED. This clinical summary was aggregated from multiple sources. Caution should be exercised in using it in the provision of clinical care. This summary normalizes information from multiple sources, and as a consequence, information in this document may materially change the coding, format and clinical context of patient data. In addition, data may be omitted in some cases. CLINICAL DECISIONS SHOULD BE BASED ON THE PRIMARY CLINICAL RECORDS. [facility] [employer] provides no warranty or guarantee of the accuracy or completeness of information in this document.
[2024-10-29 17:18] LABS: AST(SGOT) 26 U/L (<=31); Alanine Aminotransfer ALT/SGPT 21 U/L (<=34); Albumin, Serum 4.1 g/dL (3.4-4.8); Alkaline Phosphatase 138 U/L (35-104); Anion Gap 14 (5-15); BUN 15 mg/dL (4-19); BUN/Creat Ratio 15.1 RATIO (10-20); Calcium,Total 10.2 mg/dL (7.6-11.0); Carbon Dioxide 25.0 mmol/L (21.0-32.0); Chloride 101 mmol/L (98-108); Globulin 2.8 g/dL (2.2-4.2); Glucose 104 mg/dL (70-99); Potassium 4.6 mmol/L (3.3-5.1)
== END | disposition home or self-care (01) ==
LOC: MTLAB 13:51
PROVIDERS: PCP Internal Medicine; Referring Provider Internal Medicine; Visit Provider Internal Medicine
DX: I10 Essential (primary) hypertension (principal)
CPT/HCPCS: 36415; 80053; 80061; 84439; 84443; 85025

== ENCOUNTER 2025-01-16 14:02 | Emergency (ER) | payer MEDICARE, OTHER, SELFPAY ==
[2025-01-16] VITALS (8 sets, daily range): BP systolic 117–146; BP diastolic 79–99; PULSE 94–114; RESP 14–21; TEMP 36.1–37.2; O2SAT 94–97; BMI 39.7
--- NOTE | 2025-01-16 14:33 | EKG12_ITS ---
Test Reason : CONFUSION Blood Pressure : */* mmHG Vent. Rate : 93 BPM Atrial Rate : * BPM P-R Int : * ms QRS Dur : 82 ms QT Int : 348 ms P-R-T Axes : * 0 16 degrees QTcB Int : 432 ms Atrial fibrillation Possible Inferior infarct , age undetermined Abnormal ECG Confirmed by JONATAN SANTANA, DAPHNE ([id number]), film editor DIPESH VALLE ([id number]) on 01/17/2025 9:19:24 AM Referred By: SAHIL Confirmed By: DAPHNE CHEUNG MD
--- NOTE | 2025-01-16 14:34 | EDS_ITS ---
HPI History of Present Illness Chief Complaint: Confusion Narrative Narrative: 84-year-old female presents with her son and daughter because of increased confusion, as well as cough. No fevers or chills, no nausea or vomiting. They relate history that she has history of dementia. At night she talks to herself. She has had upper respiratory infection type symptoms or a cold for the last 5 days. However, they states she has not had a fever. They noticed that she was talking more and started hallucinating today. She thought that her son was a chief executive officer although he is not, and she also thought that there were people in the house stealing things. She denies any pain, no problems with urination. They present her because she seems more confused and is more talkative at night and because of the hallucinations. [facility] Medical History Debility Health care maintenance Hypertension Wears glasses Wears hearing aid Wears dentures Dementia Uses wheelchair Back pain Dietary restriction Difficulty swallowing Cancer Anxiety Depression History of arthritis History of spinal stenosis History of degenerative disc disease Non-smoker Asthma History of hyperlipidemia Home Medications Medication Instructions Recorded Last Taken Type atorvastatin 40 mg tablet 40 mg PO DAILY 06/06/21 Unkn own History montelukast 10 mg tablet 10 mg PO DAILY 06/06/21 Unkn own History (Singulair) L.crispatus,gayatri,goodwin,rhamno 5 cap PO QDAY 10/29/24 Unknown History billion cell-bacterioph 15 mg capsule (AZO Dual Protection) cranberry 500 mg capsule 500 mg PO BID 10/29/24 Unkno wn History fluticasone propionate 220 2 inh inhalation QHS #12 gr ams 10/29/24 Unknown Rx mcg/actuation HFA aerosol inhaler glucosamine sulfate 500 mg tablet 500 mg PO QDAY 10/29 Unknown History (Glucosamine) lisinopril 20 1 tab PO QDAY 10/29/24 Unkno wn History mg-hydrochlorothiazide 25 mg tablet Allergy/AdvReac Type Severity Reaction Status Date / Time No Known Allergies Allergy Verified 07/20/24 18:40 Family History Mother Heart disease Daughter Cervical cancer Surgical History History of bilateral knee replacement History of hysterectomy Social History Smoking Status: Never smoker ROS ROS ED ROS Narrative Review of systems positive for cough with upper respiratory infection type symptoms for 5 days. Reported increased confusion and hallucinations, seeing people who are not there. Positive history of dementia. No fevers or chills, no nausea or vomiting, no dysuria. EXAM Physical Exam Narrative Exam Narrative: Afebrile. Vital signs noted. Nontoxic-appearing. Cardiovascular examination reveals mild tachycardia. On auscultation, she has diffuse wheezing occasionally in the expiratory phase but no stridor, no accessory muscle use. Abdomen is soft and nontender. She is awake, alert, and hard of hearing. Moves all extremities. Const Vital Signs: 01/16/25 14:02 01/16/25 14:06 01/16/25 14:53 Temperature 96.9 F L 96.9 F L Temperature Source Temporal Temporal Pulse Rate 114 H 114 H Respiratory Rate 20 H 20 H Respiratory Pattern Tachypnea Blood Pressure 129/85 H 129/85 H Blood Pressure Mean 99 99 Pulse Ox 94 94 Oxygen Delivery Method Room Air Room Air 01/16/25 14:57 01/16/25 15:06 Temperature 98.6 F Temperature Source Oral Pulse Rate 96 94 Respiratory Rate 20 H 21 H Respiratory Pattern Normal Blood Pressure 141/99 H Blood Pressure Mean 113 Pulse Ox 95 Oxygen Delivery Method Room Air MDM MDM MDM Narrative Medical decision making narrative: The differential diagnosis includes but not limited to worsening dementia versus UTI causing mental status change and hallucinations versus pneumonia versus asthma exacerbation. Comprehensive workup was pursued. Patient bolused normal saline 1 L intravenously and given a DuoNeb aerosolized treatment. Chest x-ray will be obtained as well as basic laboratory work including CBC, CMP, and UA. She will also be swabbed for COVID, influenza, and RSV. Reviewed her laboratory work and she has very slight leukocytosis of 11.1 which I think is nonspecific, hemoglobin 13.7 with hematocrit 41.3, platelet count 218. Sodium is low at 130 with chloride 94 which may be signs of dehydration. She was bolused normal saline 1 L intravenously. LFTs show alk phos slightly elevated at 151 but normal AST and ALT. I think this is nonspecific. Chest x- ray interpreted by myself independently in 1 view shows no evidence of a pneumonia. I do not feel antibiotics are indicated. No pneumothorax. I reviewed the radiology report which confirms my independent interpretation and comments that there is no acute process. Upon repeat examination after DuoNeb aerosolized treatment, she is improved, she is not tachycardic and pulse ox 95% on room air. She has albuterol at home. Her respiratory swab is pending as well as her UA. I do feel that her hallucinations may be secondary more to her dementia/history of dementia and not necessarily related to an acute delirium. At this point in time, patient will be signed out to Dr. Calvin Zapata to check the respiratory swab, UA, treat with antibiotics as necessary, and make final disposition on the patient which I anticipate is discharge in discussion with patient's daughter and son. She is in stable condition. History & Record Review Discussion w/independent historian: Patient and Family (Daughter and son) Additional record(s) reviewed:: Prior labs Lab Data Attestation: I reviewed the patient's lab results. Labs: Laboratory Results - last 24 hr 01/16/25 14:41 WBC 11.1 H RBC 4.65 Hgb 13.7 Hct 41.3 MCV 88.8 MCH 29.5 MCHC 33.2 RDW Std Deviation 43.4 RDW Coeff of Alfredo 13.2 Plt Count 218 MPV 11.4 Immature Gran % (Auto) 0.300 Neut % (Auto) 73.5 H Lymph % (Auto) 14.3 L [place] % (Auto) 11.1 H Eos % (Auto) 0.5 Baso % (Auto) 0.3 Absolute Neuts (auto) 8.2 H Absolute Lymphs (auto) 1.58 Nucleated RBC % 0 Sodium 130 L Potassium 4.2 Chloride 94 L Carbon Dioxide 25.0 Anion Gap 12 BUN 17 Creatinine 1.16 Estim Creat Clear Calc 41.13 L Est GFR (MDRD) Non-Af 46 L BUN/Creatinine Ratio 14.7 Glucose 130 H Calcium 9.7 Total Bilirubin 0.76 AST 22 ALT 18 Alkaline Phosphatase 151 H Total Protein 6.5 Albumin 3.7 Globulin 2.8 Albumin/Globulin Ratio 1.3 Radiography Diagnostic Testing: Clinical Impression(s) from Imaging Studies Chest X-Ray 01/16/25 14:35 IMPRESSION: No Acute Findings. Reading [facility] Discharge Plan Triage Chief Complaint: Confusion ED Provider: Juarez Herbert Dx/Rx/DC Orders Clinical Impression: Confusion, Hallucinations, Dementia, Hyponatremia Instructions: ED DEMENTIA Alzheimer's, ED Confusion, ED Hyponatremia Prescriptions: No Action lisinopril-hydrochlorothiazide 20-25 mg tablet 1 tab PO QDAY glucosamine sulfate [Glucosamine] 500 mg tablet 500 mg PO QDAY Rx Instructions: administer with a meal AZO Dual Protection 5 billion cell- 15 mg capsule PO QDAY cranberry 500 mg capsule 500 mg PO BID Rx Instructions: administer with meals fluticasone propionate 220 mcg/actuation HFA aerosol inhaler 2 inh INHALATION QHS Qty: 12 3RF atorvastatin 40 mg tablet 40 mg PO DAILY montelukast [Singulair] 10 mg tablet 10 mg PO DAILY Primary Care Provider: Anni Drummond Referrals: Anni Drummond MD [Primary Care Provider, Internal Medicine] - 3-5 Days Print Language: Bulgarian
--- NOTE | 2025-01-16 14:35 | RAD_ITS ---
PROCEDURE: CHEST 1 VIEW (PORTABLE) 01/16/2025 REASON FOR EXAM: SHORTNESS OF BREATH, COUGH TECHNIQUE: Frontal view of the chest. COMPARISON: None available FINDINGS: Hardware: None. Heart: The heart size is normal. Lungs: The lungs are clear. No pneumothorax or pleural effusion. Bones: The bones are unremarkable. RAD/Chest 1 View (Portable) IMPRESSION: No Acute Findings. Reading [facility]
--- OUTSIDE RECORDS SUMMARY | 2025-01-16 14:44 | XMS RPT_ITS | CCD ---
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 Carlie Renner Primary Care Provider Dr. Carlie Renner Referring Provider [phone] Martin Attending Provider [phone] Mario Booth Other Provider Dr. Carlie Renner Primary Care Provider Dr. Carlie Renner Referring Provider Dr. Mario Booth Attending Provider Dr. Carlie Renner MD Primary Care Provider Dr. Stephen Kaur DO Emergency Provider Dr. Stephen Kaur DO Attending Provider Dr. Carlie Renner MD Referring Provider Hoda SANTANA, Dr. Hutton Attending Provider Dr. Anni Drummond MD Primary Care Provider Dr. Anni Drummond MD Referring Provider Anni Drummond Attending Unavailable Carlie Renner Referring Unavailable Carlie Renner Primary Care Unavailable Anni Drummond Attending Unavailable Anni Drummond Primary Care Unavailable Anni Drummond Referring Unavailable Carlie Renner Primary Care Unavailable Stephen Kaur Attending Unavailable Medications Current Medications Medication Drug Class(es) Dates Sig (Normalized) Sig (Original) atorvastatin 40 mg oral tablet (8 sources) HMG-CoA Reductase Inhibitor Start: 06-06-2021 take 1 tablet by mouth once daily Atorvastatin 40 mg tablet Active 40 mg PO DAILY June 06, 2021 12:00am Cranberry (2 sources) Non-Standardized Food Allergenic Extract, Non-Standardized Plant Allergenic [...] DAY June 06, 2021 12:00am Fluticasone Propionate 220 mcg/actuation HFA aerosol inhaler (1 source) Start: 10-29-2024 Fluticasone Propionate 220 mcg/actuation HFA aerosol inhaler Active 2 NMA INHALATION AT BEDTIME 12 3 October 29, 2024 1:25pm glucosamine sulfate 500 mg oral tablet (2 sources) Start: 10-29-2024 take 1 tablet by mouth once daily Glucosamine Sulfate (Glucosamine) 500 mg tablet Active 500 mg PO daily October 29, 2024 12:00am administer with a meal hydroCHLOROthiazide 25 mg / lisinopril 20 mg oral tablet (2 sources) Thiazide Diuretic, Angiotensin Converting Enzyme Inhibitor Start: 10-29-2024 Lisinopril-Hydroch lorothiazide 20-25 mg tablet Active 1 {tbl} PO daily October 29, 2024 12:00am L.Crispa,Gayatri,Veda,Rhamno -Bact (Azo Dual Protection) 5 billion cell- 15 mg capsule (2 sources) Start: 10-29-2024 take 1 capsule by mouth once daily Danica,Gayatri,Veda, Rhamno-Bact (Azo Dual Protection) 5 billion cell- 15 mg capsule Active NMA PO daily October 29, 2024 12:00am montelukast 10 mg oral tablet (8 sources) Leukotriene Receptor Antagonist Start: 06-06-2021 take 1 tablet by mouth once daily Montelukast (Singulair) 10 mg tablet Active 10 mg PO DAILY June 06, 2021 12:00am Completed/Discontinued Medications Medication Drug Class(es) Dates Sig (Normalized) Sig (Original) Fluticasone Propionate (Flovent Hfa) 220 mcg/actuation HFA aerosol inhaler (2 sources) Start: 06-06-2021 End: 10-29-2024 Fluticasone Propionate (Flovent Hfa) 220 mcg/actuation HFA aerosol inhaler Discontinued 2 NMA INHALATION TWICE A DAY June 06, 2021 12:00am October 29, 2024 1:25pm Start: 06-06-2021 Fluticasone Pr opionate (Flovent Hfa) 220 mcg/actuation HFA aerosol inhaler Active 2 NMA INHALATION TWICE A DAY June 06, 2021 12:00am Problems Problem Classification Problem Date Documented Da te Episodic/Chronic Anal and rectal conditions (8 sources) Solitary rectal ulcer syndrome; Translations: [Ulcer of anus and rectum] Episodic Asthma (2 sources) Asthma; Translations: [Unspecified asthma, uncomplicated] 10-29-2024 Chronic Delirium, dementia, and amnestic and other cognitive disorders (1 source) Dementia; Translations: [Unspecified dementia without behavioral disturbance] 10-29-2024 Chronic Essential hypertension (4 sources) Hypertensive disorder; Translations: [Essential (primary) hypertension] Onset: 10-29-2024 Chronic Malaise and fatigue (2 sources) Asthenia; Translations: [Other malaise] 10-29-2024 Episodic Other gastrointestinal disorders (8 sources) Disorder of colon; Translations: [Disease of intestine, unspecified] 04-11-2021 Episodic Other gastrointestinal disorders (8 sources) Constipation; Translations: [Constipation, unspecified] 04-11-2021 Episodic Other injuries and conditions due to external causes (3 sources) Aspiration into respiratory tract; Translations: [Unspecified foreign body in respiratory tract, part unspecified causing other injury, initial encounter] 07-20-2024 Episodic Other lower respiratory disease (3 sources) Cough; Translations: [Cough] 07-20-2024 Episodic Other screening for suspected conditions (not mental disorders or infectious disease) (10 sources) Imaging of gastrointestinal tract abnormal; Translations: [Abnormal findings on diagnostic imaging of other parts of digestive tract] Episodic Unclassified (1 source) Cough, unspecified; Translations: [Cough, unspecified] Onset: Urinary tract infections (8 sources) Acute urinary tract infection; Translations: [Urinary tract infection, site not specified] 04-11-2021 Episodic Results Test Name Value Interpretation Reference Range Facility Absolute lymphocyte countOrd ered By: Anni Drummond on 10-29-2024 Lymphocytes Auto (Unsp spec) [#/Vol] 1.76 10*3/uL 0.83-4.51 [facility] Absolute neutrophil countOrd ered By: Anni Jonessid on 10-29-2024 Neutrophils (Bld) [#/Vol] 6.5 10*3/uL 2.0-7.7 [facility] Anion gap in Serum or Plasma Ordered By: Anni Drummond on 10-29-2024 Anion gap [Moles/Vol] 14 mmol/L 5-15 [facility] Automated lymphocyte count a s percentage of total leukocytesOrdered By: Anni Drummond on 10-29-2024 Lymphocytes/100 WBC Auto (Unsp spec) 19.7 % 19-41 [facility] BUN/creatinine ratioOrdered By: Michellenew zionrene Drummond on 10-29-2024 Urea nitrogen/Creatinine [Mass ratio] 15.1 mg/mg 10-20 [facility] Basophil percentageOrdered B y: Anni Drummond on 10-29-2024 Basophils/100 WBC (Bld) 0.3 % 0-1 [facility] Bilirubin, totalOrdered By: Anni Drummond on 10-29-2024 Bilirubin [Mass/Vol] 0.61 mg/dL 0.00-1.30 [facility] CBC W/Diff, Automatedon 10-02 Absolute Lymph 1.76 X10 3/uL Normal 0.83-4.51 [facility] Comment on above: Performed By: #### L [id number], L100.0100, L500.4100, L500.4050, L506.0400 #### [facility] [address] [place], [address] Absolute Neut 6.5 X10 3/uL Normal 2.0-7.7 [facility] Comment on above: Performed By: #### L [id number], L100.0100, L500.4100, L500.4050, L506.0400 #### [facility] [address] [place], [address] Basophils/100 WBC (Bld) 0.3 % Normal 0-1 [facility] Comment on above: Performed By: #### L [id number], L100.0100, L500.4100, L500.4050, L506.0400 #### [facility] [address] [place], [address] Eosinophils/100 WBC (Bld) 1.0 % Normal 0-5 [facility] Comment on above: Performed By: #### L [id number], L100.0100, L500.4100, L500.4050, L506.0400 #### [facility] [address] [place], [address] Erythrocyte distribution width (RBC) [Ratio] 13.3 % Normal 11.6-14.6 [facility] Comment on above: Performed By: #### L [id number], L100.0100, L500.4100, L500.4050, L506.0400 #### [facility] [address] [place], [address] Hematocrit (Bld) [Volume fraction] 47.5 % High 37-47 [facility] Comment on above: Performed By: #### L [id number], L100.0100, L500.4100, L500.4050, L506.0400 #### [facility] [address] [place], [address] Hemoglobin (Bld) [Mass/Vol] 15.2 g/dL High 12.0-15.0 [facility] Comment on above: Performed By: #### L [id number], L100.0100, L500.4100, L500.4050, L506.0400 #### [facility] [address] [place], [address] IG% 0.200 Normal 0.0-0.9 [facility] Comment on above: Result Comment: IG% - Immature Granulocytes (promyelocytes, myelocytes and metamyelocytes) > 1% indicates that a LEFT SHIFT is Present. Performed By: #### L [id number], L100.0100, L500.4100, L500.4050, L506.0400 #### [facility] [address] [place], [address] Lymphocytes/100 WBC (Bld) 19.7 % Normal 19-41 [facility] Comment on above: Performed By: #### L [id number], L100.0100, L500.4100, L500.4050, L506.0400 #### [facility] [address] [place], [address] MCH (RBC) [Entitic mass] 29.6 pg Normal 27.0-32.0 [facility] Comment on above: Performed By: #### L [id number], L100.0100, L500.4100, L500.4050, L506.0400 #### [facility] [address] [place], [address] MCHC (RBC) [Mass/Vol] 32.0 g/dL Normal 32-36 [facility] Comment on above: Performed By: #### L [id number], L100.0100, L500.4100, L500.4050, L506.0400 #### [facility] [address] [place], [address] MCV (RBC) [Entitic vol] 92.4 fL Normal 81-99 [facility] Comment on above: Performed By: #### L [id number], L100.0100, L500.4100, L500.4050, L506.0400 #### [facility] [address] [place], [address] Monocytes/100 WBC (Bld) 6.5 % Normal 0-10 [facility] Comment on above: Performed By: #### L [id number], L100.0100, L500.4100, L500.4050, L506.0400 #### [facility] [address] [place], [address] Neutrophils/100 WBC (Bld) 72.3 % High 47-70 [facility] Comment on above: Performed By: #### L 501.9520, L100.0100, L500.4100, L500.4050, L506.0400 #### [facility] [address] [place], [address] Nucleated RBC (Bld) [#/Vol] 0 10*3/uL Normal 0-5 [facility] Comment on above: Performed By: #### L 501.9520, L100.0100, L500.4100, L500.4050, L506.0400 #### [facility] [address] [place], [address] Platelet mean volume (Bld) [Entitic vol] 12.0 fL Normal 6.2-12.0 [facility] Comment on above: Performed By: #### L 501.9520, L100.0100, L500.4100, L500.4050, L506.0400 #### [facility] [address] [place], [address] Platelets (Bld) [#/Vol] 203 10*3/uL Normal 150-450 [facility] Comment on above: Performed By: #### L 501.9520, L100.0100, L500.4100, L500.4050, L506.0400 #### [facility] [address] [place], [address] RBC (Bld) [#/Vol] 5.14 10*6/uL Normal 4.2-5.4 [facility] Comment on above: Performed By: #### L [id number], L100.0100, L500.4100, L500.4050, L506.0400 #### [facility] [address] [place], [address] RDW SD 45.8 fl High 35.1-43.9 [facility] Comment on above: Performed By: #### L 501.9520, L100.0100, L500.4100, L500.4050, L506.0400 #### [facility] [address] [place], [address] WBC (Bld) [#/Vol] 8.9 10*3/uL Normal 4.4-11.0 [facility] Comment on above: Performed By: #### L 501.9520, L100.0100, L500.4100, L500.4050, L506.0400 #### [facility] [address] [place], [address] Calculated very low density lipoprotein (VLDL) cholesterol measurementOrdered By: Anni Drummond on 10-29-2024 Calculated very low density lipoprotein (VLDL) cholesterol measurement 18 mg/dL 5-40 [facility] Carbon dioxide, total [Moles /volume] in Central venous bloodOrdered By: Anni Drummond on 10-29-2024 CO2 [Moles/Vol] 25.0 mmol/L 21.0-32.0 [facility] Chloride assayOrdered By: Juani monique Robetrmarni on 10-29-2024 Chloride [Moles/Vol] 101 mmol/L 98-108 [facility] Comprehensive Metabolic Prof ilon 10-29-2024 Albumin [Mass/Vol] 4.1 g/dL Normal 3.4-4.8 [facility] Comment on above: Performed By: #### L 501.9520, L100.0100, L500.4100, L500.4050, L506.0400 #### [facility] [address] [place], [address] Albumin/Globulin [Mass ratio] 1.5 {ratio} Normal 0.9-2.4 [facility] Comment on above: Performed By: #### L 501.9520, L100.0100, L500.4100, L500.4050, L506.0400 #### [facility] [address] [place], [address] ALK PHOS 138 U/L High 35-104 [facility] Comment on above: Performed By: #### L 501.9520, L100.0100, L500.4100, L500.4050, L506.0400 #### [facility] [address] [place], [address] ALT [Catalytic activity/Vol] 21 U/L Normal <=34 [facility] Comment on above: Performed By: #### L 501.9520, L100.0100, L500.4100, L500.4050, L506.0400 #### [facility] [address] [place], [address] AST [Catalytic activity/Vol] 26 U/L Normal <=31 [facility] Comment on above: Result Comment: Hemo lysis present, Results??could be affected. ?? Performed By: #### L 501.9520, L100.0100, L500.4100, L500.4050, L506.0400 #### [facility] [address] [place], [address] Bilirubin [Mass/Vol] 0.61 mg/dL Normal 0.00-1.30 [facility] Comment on above: Performed By: #### L 501.9520, L100.0100, L500.4100, L500.4050, L506.0400 #### [facility] [address] [place], [address] BUN/CRE 15.1 RATIO Normal 10-20 [facility] Comment on above: Performed By: #### L 501.9520, L100.0100, L500.4100, L500.4050, L506.0400 #### [facility] [address] [place], [address] Calcium [Mass/Vol] 10.2 mg/dL Normal 7.6-11.0 [facility] Comment on above: Performed By: #### L 501.9520, L100.0100, L500.4100, L500.4050, L506.0400 #### [facility] [address] [place], [address] Chloride [Moles/Vol] 101 mmol/L Normal 98-108 [facility] Comment on above: Performed By: #### L 501.9520, L100.0100, L500.4100, L500.4050, L506.0400 #### [facility] [address] [place], [address] CO2 [Moles/Vol] 25.0 mmol/L Normal 21.0-32.0 [facility] Comment on above: Performed By: #### L 501.9520, L100.0100, L500.4100, L500.4050, L506.0400 #### [facility] [address] [place], [address] Creatinine [Mass/Vol] 0.99 mg/dL Normal 0.70-1.20 [facility] Comment on above: Performed By: #### L 501.9520, L100.0100, L500.4100, L500.4050, L506.0400 #### [facility] [address] [place], [address] GAP 14 Normal 5-15 [facility] Comment on above: Performed By: #### L 501.9520, L100.0100, L500.4100, L500.4050, L506.0400 #### [facility] [address] [place], [address] GFR/1.73 sq M.predicted among non-blacks MDRD (S/P/Bld) [Vol rate/Area] 56 mL/min/{1.73_m2} Low >60 [facility] Comment on above: Result Comment: mL/m in/1.73m2 CKD-EPI Creatinine Equation (2020) Performed By: #### L 501.9520, L100.0100, L500.4100, L500.4050, L506.0400 #### [facility] [address] [place], [address] Globulin (S) [Mass/Vol] 2.8 g/dL Normal 2.2-4.2 [facility] Comment on above: Performed By: #### L 501.9520, L100.0100, L500.4100, L500.4050, L506.0400 #### [facility] [address] [place], [address] Glucose [Mass/Vol] 104 mg/dL High 70-99 [facility] Comment on above: Performed By: #### L 501.9520, L100.0100, L500.4100, L500.4050, L506.0400 #### [facility] [address] [place], [address] Potassium [Moles/Vol] 4.6 mmol/L Normal 3.3-5.1 [facility] Comment on above: Result Comment: Hemo lysis present, Results??could be affected. ?? Performed By: #### L 501.9520, L100.0100, L500.4100, L500.4050, L506.0400 #### [facility] [address] [place], [address] Sodium [Moles/Vol] 140 mmol/L Normal 133-145 [facility] Comment on above: Performed By: #### L 501.9520, L100.0100, L500.4100, L500.4050, L506.0400 #### [facility] [address] [place], [address] T PROT 6.9 g/dL Normal 5.9-8.4 [facility] Comment on above: Performed By: #### L 501.9520, L100.0100, L500.4100, L500.4050, L506.0400 #### [facility] [address] [place], [address] Urea nitrogen [Mass/Vol] 15 mg/dL Normal 4-19 [facility] Comment on above: Performed By: #### L 501.9520, L100.0100, L500.4100, L500.4050, L506.0400 #### [facility] [address] [place], [address] Eosinophil percentageOrdered By: Anni Drummond on 10-29-2024 Eosinophils/100 WBC (Bld) 1.0 % 0-5 [facility] Erythrocyte distribution wid th ratioOrdered By: Anni Drummond on 10-29-2024 Erythrocyte distribution width (RBC) [Ratio] 13.3 % 11.6-14.6 [facility] Erythrocyte distribution wid th standard deviationOrdered By: Anni Drummond on 10-29-2024 Erythrocyte distribution width (RBC) [Ratio] 45.8 fl High 35.1-43.9 [facility] Glomerular filtration rate ( GFR) estimation/1.73 sq m using serum, plasma, or whole bOrdered By: Anni Drummond on 10-29-2024 GFR/1.73 sq M.predicted among non-blacks MDRD (S/P/Bld) [Vol rate/Area] 56 mL/min/{1.73_m2} Low >60 [facility] Comment on above: mL/min/1.73m2 CKD-EP I Creatinine Equation (2020) Hematocrit Auto (Bld) [Volum e fraction]Ordered By: Anni Drummond on 10-29-2024 Hematocrit (Bld) [Volume fraction] 47.5 % High 37-47 [facility] Hemoglobin measurementOrdere d By: Anni Drummond on 10-29-2024 Hemoglobin (Bld) [Mass/Vol] 15.2 g/dL High 12.0-15.0 [facility] Immature granulocytes/100 WB C Auto (Bld)Ordered By: Anni Drummond on 10-29-2024 Immature granulocytes/100 WBC (Bld) 0.200 % 0.0-0.9 [facility] Comment on above: IG% - Immature Granu locytes (promyelocytes, myelocytes and metamyelocytes) > 1% indicates that a LEFT SHIFT is Present. Internal Medicine Office Vis itorobinson 10-29-2024 Internal Medicine Office Visit [facility] [address] [place] [address] [place] [address] OFFICE VISIT Date of Service: 10/29/24 MR#: [id number] Acct: [id number] Name: ANTONI KULKARNI Rep #: [id number] : 1940 Provider: Dr. 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: No Accompanied by: Daughter Is patient in pain?: No Allergies No Known Allergies Allergy (Verified 07/20/24 18:40) Medications ???Medication ???Instructions ???Recorded ???Confirmed ???Type atorvastatin 40 mg tablet 40 mg PO DAILY 06/06/21 10/29/24 H istory montelukast 10 mg tablet 10 mg PO DAILY 06/06/21 10/29/24 H istory (Singulair) L.crispatus,gayatri,veda sen,rhamno 5 cap PO QDAY 10/29/24 10/29/24 Hist ory billion cell-bacterioph 15 mg capsule (AZO Dual Protection) cranberry 500 mg capsule 500 mg PO BID 10/29/24 10/29/24 Hi story fluticasone propionate 220 2 inh inhalation QHS #12 grams 10/29/24 Rx mcg/actuation HFA aerosol inhaler glucosamine sulfate 500 mg tablet 500 mg PO QDAY 10/29/24 10/29/24 History (Glucosamine) lisinopril 20 1 tab PO QDAY 10/29/24 10/29/24 Hi story mg-hydrochlorothiazi de 25 mg tablet Have you fallen in the past year?: No Nurse's Note: establishing [facility] Medical History (Updated 10/29/24 @ 13:[address] Anni Drummond MD) Debility Health care maintenance Hypertension Wears glasses Wears hearing aid Wears dentures Dementia Uses wheelchair Back pain Dietary restriction Difficulty swallowing Cancer Anxiety Depression History of arthritis History of spinal stenosis History of degenerative disc disease Non-smoker Asthma History of hyperlipidemia Surgical History History of bilateral knee replacement History of hysterectomy Family History (Updated 10/29/24 @ 12:53 by Zahra Armstrong) Mother Heart disease Daughter Cervical cancer Social History Smoking Status: Never smoker HPI HPI Chief Complaint: establishing Details: ANTONI KULKARNI, is an 84-year-old female presenting to [facility]. No acute concerns at this time. The patient's medical history includes dementia, which has been apparent to the patient's caregiver for approximately five years. There have been no formal diagnoses confirming this condition, but symptoms such as memory impairment and confusion have been noted. She appears generally pleasant with occasional agitation but remains manageable with her current living arrangement and caregiver support. The patient has essential hypertension, which has been controlled well with medication. Her recent blood pressure readings are excellent, with the most recent noted being 120/66. She does not frequently experience dizziness or lightheadedness. Additionally, the patient has occupational asthma, likely attributed to asbestos exposure during her employment at [employer]. She manages her asthma with the use of an inhaler daily during the hours. She does not report breathing difficulties at this time. The patient has a history of falls, the most recent significant ones occurring a couple of years ago, leading to the current use of a wheelchair to prevent further incidents. This adjustment has been effective in minimizing fall-related risks. Furthermore, she continues to be mobile with limited capacity, able to stand or take a few steps. Her appetite is stable. She is current on her vaccinations, including flu and COVID-19 vaccinations, as well as shingles and pneumonia shots. Sleep patterns are reported to be good. Attestation: Documentation on this patient encounter was supported using ambient scribe technology/ voice AI technology. The patient consented to recording for the purpose of documenting the encounter. Provider reviewed content of the generated note prior to signature. ROS Const Constitutional: No body ache, excessive sweating, fatigue, fever(s), frequent falls, headache(s), snoring, weakness, weight change, sleep problems or change in appetite Eyes Eyes: No blurry vision, change in vision, vision loss, dry eyes, eye pain or Light sensitivity ENT ENT: No abnormal hearing, ear or mastoid pain, tinnitus, dizziness/vertigo, nasal congestion, headache(s), neck pain or sore throat Resp Respirato (more content not included)... Normal [facility] LDL calc ser/plasOrdered By: Anni Drummond on 10-29-2024 Cholesterol in LDL [Mass/Vol] 56 mg/dL [facility] Comment on above: Yxmbartrfk=434-310 m g/dL & Higher Soyz=096 mg/dL or greaterFriedwald Equation for LDL-C Laboratory - Chemistry and C hemistry - challengeOrdered By: Anni Jonesmarni on 10-29-2024 AST [Catalytic activity/Vol] 26 U/L <32 [facility] Comment on above: Hemolysis present, R esults could be affected. Lipid Profileon 10-29-2024 CHOL:HDL 2.10 Normal [facility] Comment on above: Performed By: #### L 501.9520, L100.0100, L500.4100, L500.4050, L506.0400 #### [facility] [address] [place], [address] Cholesterol [Mass/Vol] 141 mg/dL Normal <=200 [facility] Comment on above: Result Comment: Chol esterol level, Desirable <200 mg/dL Borderline high cholesterol 200-239 mg/dL High cholesterol >=240 mg/dL Recommendations of the NCEP Adult Treatment Panel for the following risk-cutoff thresholds for the [place] population. Performed By: #### L 501.9520, L100.0100, L500.4100, L500.4050, L506.0400 #### [facility] [address] [place], [address] Cholesterol in HDL [Mass/Vol] 67 mg/dL Normal [facility] [facility] Comment on above: Result Comment: [place] [employer] Cholesterol Education Program (NCEP) guidelines: <40 mg/dL: Low HDL-cholesterol (major risk factor for CHD) >= 60 mg/dL: High HDL-cholesterol (negative risk factor for CHD) HDL-cholesterol is affected by a number of factors, e.g. smoking, exercise, hormones, sex and age. Performed By: #### L 501.9520, L100.0100, L500.4100, L500.4050, L506.0400 #### [facility] [address] [place], [address] Cholesterol in LDL [Mass/Vol] 56 mg/dL Normal [facility] Comment on above: Result Comment: Bord owqfxw=277-557 mg/dL Higher Sfvb=550 mg/dL or greater Friedwald Equation for LDL-C Performed By: #### L 501.9520, L100.0100, L500.4100, L500.4050, L506.0400 #### [facility] [address] [place], [address] Cholesterol in VLDL [Mass/Vol] 18 mg/dL Normal 5-40 [facility] Comment on above: Performed By: #### L 501.9520, L100.0100, L500.4100, L500.4050, L506.0400 #### [facility] [address] [place], [address] Triglyceride [Mass/Vol] 91 mg/dL Normal [facility] Comment on above: Result Comment: The drugs N-Acetylcysteine and Metamizole may falsely depress this assay. Normal range: <150 mg/dL Borderline High: 150-199 mg/dL High: 200-499 mg/dL Very High: >500 mg/dL Performed By: #### L 501.9520, L100.0100, L500.4100, L500.4050, L506.0400 #### [facility] [address] [place], [address] MCV (mean corpuscular volume ) determinationOrdered By: Anni Drummond on 10-29-2024 MCV (RBC) [Entitic vol] 92.4 fL 81-99 [facility] Mean corpuscular hemoglobin (MCH) determinationOrdered By: Anni Drummond on 10-29-2024 MCH (RBC) [Entitic mass] 29.6 pg 27.0-32.0 [facility] Mean corpuscular hemoglobin concentration (MCHC) determinationOrdered By: Anni Drummond on 10-29-2024 MCHC (RBC) [Mass/Vol] 32.0 g/dL 32-36 [facility] Mean platelet volume determi nationOrdered By: Anni Drummond on 10-29-2024 Platelet mean volume (Bld) [Entitic vol] 12.0 fL 6.2-12.0 [facility] Monocyte percentageOrdered B y: Michelleyanetrene Drummond on 10-29-2024 Monocytes/100 WBC (Bld) 6.5 % 0-10 [facility] Neutrophil percentageOrdered By: Juanimonique Jonesaubreysid on 10-29-2024 Neutrophils/100 WBC (Bld) 72.3 % High 47-70 [facility] Nucleated red blood cell per centageOrdered By: Anni Drummond on 10-29-2024 Nucleated RBC/100 WBC (Bld) [Ratio] 0 % 0-5 [facility] Platelet countOrdered By: Juani yaniquepresley Drummond on 10-29-2024 Platelets (Bld) [#/Vol] 203 10*3/uL 150-450 [facility] Potassium measurement (mass/ volume)Ordered By: Anni Drummond on 10-29-2024 Potassium (Unsp spec) [Mass/Vol] 4.6 mmol/L 3.3-5.1 [facility] Comment on above: Hemolysis present, R esults could be affected. RBC Auto (Bld) [#/Vol]Ordere d By: Anni Drummond on 10-29-2024 RBC (Bld) [#/Vol] 5.14 10*6/uL 4.2-5.4 [facility] Screening total cholesterol/ high density lipoprotein (HDL) cholesterol ratioOrdered By: Anni Drummond on 10-29-2024 Cholesterol.total/Choles terol in HDL [Mass ratio] 2.10 {ratio} [facility] Serum creatinine measurement (mass/volume)Ordered By: Anni Drummond on 10-29-2024 Creatinine [Mass/Vol] 0.99 mg/dL 0.70-1.20 [facility] Serum globulin measurementOr dered By: Anni Drummond on 10-29-2024 Globulin (S) [Mass/Vol] 2.8 g/dL 2.2-4.2 [facility] Serum glucose measurement (m ass/volume)Ordered By: Anni Drummond on 10-29-2024 Glucose [Mass/Vol] 104 mg/dL High 70-99 [facility] Serum or plasma alanine rudd otransferase (ALT) measurementOrdered By: Huyrene Jonesaubreysid on 10-29-2024 ALT [Catalytic activity/Vol] 21 U/L <35 [facility] Serum or plasma albumin hailey urement (mass/volume)Ordered By: yanet Abdirahman10-29-2024 Albumin [Mass/Vol] 4.1 g/dL 3.4-4.8 [facility] Serum or plasma albumin/glob ulin mass ratioOrdered By: Robertaubrey on 10-29-2024 Albumin/Globulin [Mass ratio] 1.5 {ratio} 0.9-2.4 [facility] Serum or plasma alkaline vini sphatase measurementOrdered By: Robert10-29-2024 ALP [Catalytic activity/Vol] 138 U/L High 35-104 [facility] Serum or plasma calcium hailey urement (mass/volume)Ordered By: Abdirahman10-29-2024 Calcium [Mass/Vol] 10.2 mg/dL 7.6-11.0 [facility] Serum or plasma cholesterol in HDL measurement (mass/volume)Ordered By: Juani Abdirahman10-29-2024 Cholesterol in HDL [Mass/Vol] 67 mg/dL >40 [facility] Comment on above: National Cholesterol Education Program (NCEP) guidelines:<40 mg/dL: Low HDL-cholesterol (major risk factor for CHD)>= 60 mg/dL: High HDL-cholesterol (negative risk factor for CHD)HDL-cholesterol is affected by a number of factors, e.g. smoking, exercise, hormones, sex and age. Serum or plasma cholesterol measurement (mass/volume)Ordered By: Huy Robertaubreysid 10-29-2024 Cholesterol [Mass/Vol] 141 mg/dL <201 [facility] Comment on above: Cholesterol level, D esirable <200 mg/dLBorderline high cholesterol 200-239 mg/dLHigh cholesterol >=240 mg/dLRecommendations of the NCEP Adult Treatment Panel for the following risk-cutoff thresholds for the [place] population. Serum or plasma urea nitroge n measurement (mass/volume)Ordered By: Michelleongrene Drummond 5 Urea nitrogen [Mass/Vol] 15 mg/dL 4-19 [facility] Sodium levelOrdered By: Michelle Drummond on 10-29-2024 Sodium [Moles/Vol] 140 mmol/L 133-145 [facility] T4 Free Directon 10-29-2024 T4 FREE DIRECT 1.10 ng/dL Normal 0.76-1.46 [facility] Comment on above: Performed By: #### L 501.9520, L100.0100, L500.4100, L500.4050, L506.0400 #### [facility] [address] [place], [address] T4 freeOrdered By: Anni Robertmarni on 10-29-2024 Free T4 [Mass/Vol] 1.10 ng/dL 0.76-1.46 [facility] TSH DL <= 0.005 mIU/L QnOrde red By: Anni Drummond on 10-29-2024 TSH Qn 2.360 uIU/mL 0.300-4.200 [facility] Thyroid Stim Hormone (TSH)on 10-29-2024 TSH 2.360 uIU/mL Normal 0.300-4.200 [facility] Comment on above: Performed By: #### L 501.9520, L100.0100, L500.4100, L500.4050, L506.0400 #### [facility] [address] [place], [address] Total proteinOrdered By: Daniel Drummond on 10-29-2024 Protein [Mass/Vol] 6.9 g/dL 5.9-8.4 [facility] Triglycerides measurementOrd ered By: Anni Drummond on 10-29-2024 Triglyceride [Mass/Vol] 91 mg/dL <199 [facility] Comment on above: The drugs N-Acetylcy steine and Metamizole may falsely depress this assay. Normal range: <150 mg/dLBorderline High: 150-199 mg/dLHigh: 200-499 mg/dLVery High: >500 mg/dL White blood cell (WBC) count Ordered By: Anni Drummond on 10-29-2024 WBC (Bld) [#/Vol] 8.9 10*3/uL 4.4-11.0 [facility] Emergency Department Summary on 07-20-2024 Emergency Department Summary [facility] Medical Records Department [address] [place] [address] Emergency Department Summary 07/20/24 MR#: [id number] Acct: [id number] Name: ANTONI KULKARNI Rep #: [id number] : 1940 83 From: Stephen Mireles PCP: [...] of asthma. Currently denies any symptoms. [facility] Medical History Wears glasses Wears hearing [...] were answered. Re-evaluation: stable Disposition discussed with patient/family/signi ficant other: Patient and daughter Case discussed with consulting clinician: N/A This note was generated with Silvia dictation software. It may contain incorrect words, spelling, and punctuation that were not noted in checking the note before signing. Discharge Plan Triage Chief Complaint: Foreign Body ED Provider: Stephen Kaur Dx/Rx/DC Orders Clinical Impressio (more content not included)... Normal [facility] Basophil percentageOrdered B y: Carlie Renner on 09-17-2022 Chloride [Moles/Vol] 104 mmol/L 98-107 [facility] Glucose [Mass/Vol] 99 mg/dL 74-106 [facility] Potassium [Moles/Vol] 4.2 mmol/L 3.5-5.1 [facility] Sodium [Moles/Vol] 139 mmol/L 136-145 [facility] - Chemistry and C hemistry - challengeOrdered By: Carlie Renner on 09-17-2022 CO2 [Moles/Vol] 28.0 mmol/L 21.0-32.0 [facility] Urea nitrogen/Creatinine [Mass ratio] 14.4 mg/mg 10-20 [facility] No Panel InformationOrdered By: Carlie Renner on 09-17-2022 Estimated GFR (MDRD) Amer 84 mL/min >60 [facility] Comment on above: GFR Calc Estimated GFR (MDRD) Non-Af Amer 69 mL/min >60 [facility] Comment on above: Non- GFR Calc Serum or plasma calcium hailey urement (mass/volume)Ordered By: Carlie Renner on 09-17-2022 Calcium [Mass/Vol] 9.4 mg/dL 8.5-10.1 [facility] Serum or plasma creatinine m easurement (mass/volume)Ordered By: Carlie Renner on 09-17-2022 Creatinine [Mass/Vol] 0.84 mg/dL 0.55-1.02 [facility] Comment on above: The validity of the calculated GFR & GFRAA in patients over 70 years has not been determined. Clinical correlation is essential. Serum or plasma urea nitroge n measurement (mass/volume)Ordered By: Carlie Renner on 09-17-2022 Urea nitrogen [Mass/Vol] 12 mg/dL - [facility] Thin prep Papanicolaou smear with manual screeningOrdered By: Carlie Renner on 09-17-2022 Thin prep Papanicolaou smear with manual screening 7 5-15 [facility] Basophil percentageOrdered B y: Dr. Renner on 03-20-2022 Chloride [Moles/Vol] 107 mmol/L 98-107 [facility] Cholesterol [Mass/Vol] 164 mg/dL <200 [facility] Comment on above: <200 mg/dL Desirable 200-240 mg/dL Borderline >240 mg/dL High Risk Glucose [Mass/Vol] 85 mg/dL 74-106 [facility] Potassium [Moles/Vol] 4.2 mmol/L 3.5-5.1 [facility] Sodium [Moles/Vol] 143 mmol/L 136-145 [facility] Triglyceride [Mass/Vol] 114 mg/dL <199 [facility] Comment on above: The drugs N-Acetylcy steine and Metamizole may falsely depress this assay.Serum Triglycerides Reference Interval Normal <150 mg/dL Borderline high 150 - 199 mg/dL High 200 - 499 mg/dL Very High > or = 500 mg/dL Laboratory - Chemistry and C hemistry - challengeOrdered By: Dr. Renner on 03-20-2022 ALT [Catalytic activity/Vol] 23 U/L 13-56 [facility] CO2 [Moles/Vol] 29.0 mmol/L 21.0-32.0 [facility] Urea nitrogen/Creatinine [Mass ratio] 27.5 mg/mg 10-20 [facility] No Panel InformationOrdered By: Dr. Renner on 03-20-2022 Estimated GFR (MDRD) Amer 99 mL/min >60 [facility] Comment on above: GFR Calc Estimated GFR (MDRD) Non-Af Amer 82 mL/min >60 [facility] Comment on above: Non- GFR Calc Serum or plasma calcium hailey urement (mass/volume)Ordered By: Dr. Renner on 03-20-2022 Calcium [Mass/Vol] 9.5 mg/dL 8.5-10.1 [facility] Serum or plasma cholesterol in HDL measurement (mass/volume)Ordered By: Dr. Renner on 03-20-2022 Cholesterol in HDL [Mass/Vol] 77 mg/dL >40 [facility] Comment on above: The drugs N-Acetylcy steine and Metamizole may falsely depress this assay. Reference Range HDL <40 mg/dL Low HDL Cholesterol HDL >or= 60 mg/dL High HDL Cholesterol Serum or plasma cholesterol in VLDL measurement (mass/volume)Ordered By: Dr. Renner on 03-20-2022 Cholesterol in VLDL [Mass/Vol] 23 mg/dL 5-40 [facility] Serum or plasma creatinine m easurement (mass/volume)Ordered By: Dr. Renner on 03-20-2022 Creatinine [Mass/Vol] 0.73 mg/dL 0.55-1.02 [facility] Comment on above: The validity of the calculated GFR & GFRAA in patients over 70 years has not been determined. Clinical correlation is essential. Serum or plasma low density lipoprotein (LDL) cholesterol measurement (mass/volume)Ordered By: Dr. Renner on 03-20-2022 Cholesterol in LDL [Mass/Vol] 64 mg/dL 0-130 [facility] Serum or plasma urea nitroge n measurement (mass/volume)Ordered By: Dr. Renner on 03-20-2022 Urea nitrogen [Mass/Vol] 20 mg/dL 7-18 [facility] Thin prep Papanicolaou smear with manual screeningOrdered By: Dr. Renner on 03-20-2022 Thin prep Papanicolaou smear with manual screening 14 U/L 15-37 [facility] Thin prep Papanicolaou smear with manual screening 7 5-15 [facility] Absolute lymphocyte counton 04-03-2021 Lymphocytes Auto (Unsp spec) [#/Vol] 1.58 10*3/uL 0.83-4.51 [facility] Work Phone: Basophil percentageon 2021 Basophil percentage 10-25 SEEN /hpf [facility] Work Phone: Basophils/100 WBC (Bld) 0.3 % 0-1 [facility] Work Phone: Bilirubin [Mass/Vol] 0.70 mg/dL 0.20-1.00 [facility] Work Phone: Comment on above: For patients on eltr ombopag therapy, use of Dimension Neon TBIL is not recommended. Chloride [Moles/Vol] 100 mmol/L 98-107 [facility] Work Phone: Eosinophils/100 WBC (Bld) 0.6 % 0-5 [facility] Work Phone: Glucose [Mass/Vol] 110 mg/dL 74-106 [facility] Work Phone: Comment on above: Fasting Glucose resu lt from 100 to 125 mg/dL suggests IMPAIRED HOMEOSTASIS per A.D.A. criteria. Neutrophils (Bld) [#/Vol] 4.1 10*3/uL 2.0-7.7 [facility] Work Phone: Neutrophils/100 WBC (Bld) 64.9 % 47-70 [facility] Work Phone: Potassium [Moles/Vol] 3.0 mmol/L 3.5-5.1 [facility] Work Phone: Protein [Mass/Vol] 5.8 g/dL 6.4-8.2 [facility] Work Phone: Sodium [Moles/Vol] 136 mmol/L 136-145 [facility] Work Phone: WBC (Bld) [#/Vol] 6.3 10*3/uL 4.4-11.0 [facility] Work Phone: Bilirubin Test strip Ql (U)o n 04-03-2021 Bilirubin Ql (U) Negative Negative [facility] Work Phone: Blood erythrocytes count (nu mber/volume)on 04-03-2021 RBC (Bld) [#/Vol] 4.55 10*6/uL 4.2-5.4 [facility] Work Phone: Blood hemoglobin measurement (mass/volume)on 04-03-2021 Hemoglobin (Bld) [Mass/Vol] 13.1 g/dL 12.0-15.0 [facility] Work Phone: Blood lymphocytes/100 leukoc yteson 04-03-2021 Lymphocytes/100 WBC (Bld) 25.1 % 19-41 [facility] Work Phone: Blood monocytes/100 leukocyt eson 04-03-2021 Monocytes/100 WBC (Bld) 8.1 % 0-10 [facility] Work Phone: Blood platelet mean volumeon 04-03-2021 Platelet mean volume (Bld) [Entitic vol] 10.2 fL 6.2-12.0 [facility] Work Phone: Determination of erythrocyte mean corpuscular volume (MCV)on 04-03-2021 MCV (RBC) [Entitic vol] 86.6 fL 81-99 [facility] Work Phone: Hematocrit Auto (Bld) [Volum e fraction]on 04-03-2021 Hematocrit (Bld) [Volume fraction] 39.4 % 37-47 [facility] Work Phone: Ketones Test strip Ql (U)on 04-03-2021 Ketones Ql (U) 5 mg/dl Negative [facility] Work Phone: Laboratory - Chemistry and C hemistry - challengeon 04-03-2021 ALP [Catalytic activity/Vol] 100 U/L 45-117 [facility] Work Phone: ALT [Catalytic activity/Vol] 22 U/L 13-56 [facility] Work Phone: CO2 [Moles/Vol] 29.0 mmol/L 21.0-32.0 [facility] Work Phone: Globulin (S) [Mass/Vol] 2.9 g/dL 2.2-4.2 [facility] Work Phone: Urea nitrogen/Creatinine [Mass ratio] 23.8 mg/mg 10-20 [facility] Work Phone: Laboratory - Hematology and Cell countson 04-03-2021 Erythrocyte distribution width (RBC) [Entitic vol] 51.4 fL 35.1-43.9 [facility] Work Phone: Erythrocyte distribution width (RBC) [Ratio] 16.3 % 11.6-14.6 [facility] Work Phone: Immature granulocytes/100 WBC (Bld) 1.000 % 0.0-0.9 [facility] Work Phone: Comment on above: IG% - Immature Granu locytes (promyelocytes, myelocytes and metamyelocytes) > 1% indicates that a LEFT SHIFT is Present. MCH (RBC) [Entitic mass] 28.8 pg 27.0-32.0 [facility] Work Phone: Nucleated RBC/100 WBC (Bld) [Ratio] 0 % 0-5 [facility] Work Phone: MCHC Auto (RBC) [Mass/Vol]on 04-03-2021 MCHC (RBC) [Mass/Vol] 33.2 g/dL 32-36 [facility] Work Phone: Mucus LM Ql (Urine sed)on Mucus Ql (Urine sed) 0 SEEN /hpf [facility] Work Phone: Nitrite Test strip Ql (U)on 04-03-2021 Nitrite Ql (U) Positive Negative [facility] Work Phone: No Panel Informationon 04-03 Estimated Creatinine Clearance Calc 46.40 ml/min [facility] Work Phone: Estimated GFR (MDRD) Amer 89 mL/min >60 [facility] Work Phone: Comment on above: GFR Calc Estimated GFR (MDRD) Non-Af Amer 74 mL/min >60 [facility] Work Phone: Comment on above: Non- GFR Calc Platelets bldon 04-03-2021 Platelets (Bld) [#/Vol] 188 10*3/uL 150-450 [facility] Work Phone: Protein Test strip Ql (U)on 04-03-2021 Protein Ql (U) 30 mg/dl Negative [facility] Work Phone: Serum or plasma albumin hailey urement (mass/volume)on 04-03-2021 Albumin [Mass/Vol] 2.9 g/dL 3.2-5.0 [facility] Work Phone: Serum or plasma albumin/glob ulin mass ratioon 04-03-2021 Albumin/Globulin [Mass ratio] 1.0 {ratio} 0.9-2.4 [facility] Work Phone: Serum or plasma calcium hailey urement (mass/volume)on 04-03-2021 Calcium [Mass/Vol] 9.1 mg/dL 8.5-10.1 [facility] Work Phone: Serum or plasma creatinine m easurement (mass/volume)on 04-03-2021 Creatinine [Mass/Vol] 0.80 mg/dL 0.55-1.02 [facility] Work Phone: Comment on above: The validity of the calculated GFR & GFRAA in patients over 70 years has not been determined. Clinical correlation is essential. Serum or plasma urea nitroge n measurement (mass/volume)on 04-03-2021 Urea nitrogen [Mass/Vol] 19 mg/dL 7-18 [facility] Work Phone: Squamous epithelial cells de tection in urine sediment by light microscopyon 04-03-2021 Epithelial cells.squamous LM Ql (Urine sed) 0-5 SEEN /hpf [facility] Work Phone: Thin prep Papanicolaou smear with manual screeningon 04-03-2021 Thin prep Papanicolaou smear with manual screening 22 U/L 15-37 [facility] Work Phone: Thin prep Papanicolaou smear with manual screening 7 5-15 [facility] Work Phone: Urine blood detectionon 02 RBC Ql (U) 50 /ul Negative [facility] Work Phone: RBC Ql (U) 0-5 SEEN /hpf [facility] Work Phone: Urine clarityon 04-03-2021 Clarity (U) Cloudy Clear [facility] Work Phone: Urine color determinationon 04-03-2021 Color (U) Yellow Yellow [facility] Work Phone: Urine glucose detectionon Glucose Ql (U) Normal mg/dl Normal [facility] Work Phone: Urine leukocyte esterase det ection by dipstickon 04-03-2021 Leukocyte esterase Test strip Ql (U) 500 /ul Negative [facility] Work Phone: Urine pHon 04-03-2021 pH (U) 5.0 [pH] [facility] Work Phone: Urine sediment bacteria coun t by microscopy (number/high power field)on 04-03-2021 Bacteria LM.HPF (Urine sed) [#/Area] 3 /[HPF] None Seen [facility] Work Phone: Urine specific gravity measu rementon 04-03-2021 Specific gravity (U) [Rel density] 1.025 [facility] Work Phone: Urobilinogen Auto test strip Ql (U)on 04-03-2021 Urobilinogen Ql (U) 1 mg/dl Normal [facility] Work Phone: Basophil percentageon 2020 Chloride [Moles/Vol] 103 mmol/L 98-[address] [facility] Work Phone: Cholesterol [Mass/Vol] 130 mg/dL <200 elva [facility] Work Phone: Comment on above: <200 mg/dL Desirable 200-240 mg/dL Borderline >240 mg/dL High Risk Glucose [Mass/Vol] 100 mg/dL 74-106 [address] [facility] Work Phone: Comment on above: Fasting Glucose resu lt from 100 to 125 mg/dL suggests IMPAIRED HOMEOSTASIS per A.D.A. criteria.Please note revised GLUCOSE reference range effective 2017. Potassium [Moles/Vol] 3.7 mmol/L 3.5-5.1 [facility] Work Phone: Sodium [Moles/Vol] 138 mmol/L 136-145 [facility] Work Phone: Triglyceride [Mass/Vol] 93 mg/dL [facility] Work Phone: Comment on above: The drugs N-Acetylcy steine and Metamizole may falsely depress this assay.Serum Triglycerides Reference Interval Normal <150 mg/dL Borderline high 150 - 199 mg/dL High 200 - 499 mg/dL Very High > or = 500 mg/dL Laboratory - Chemistry and C hemistry - challengeon 02-16-2021 ALT [Catalytic activity/Vol] 35 U/L 13-56 [facility] Work Phone: CO2 [Moles/Vol] 27.0 mmol/L 21.0-32.0 [facility] Work Phone: Urea nitrogen/Creatinine [Mass ratio] 19.4 mg/mg 10-20 [facility] Work Phone: No Panel Informationon 02-16 Estimated GFR (MDRD) Amer 80 mL/min >60 [facility] Work Phone: Comment on above: GFR Calc Estimated GFR (MDRD) Non-Af Amer 66 mL/min >60 [facility] Work Phone: Comment on above: Non- GFR Calc Serum or plasma calcium hailey urement (mass/volume)on 02-16-2021 Calcium [Mass/Vol] 10.0 mg/dL 8.5-10.1 [facility] Work Phone: Serum or plasma cholesterol in HDL measurement (mass/volume)on 02-16-2021 Cholesterol in HDL [Mass/Vol] 60 mg/dL [facility] Work Phone: Comment on above: The drugs N-Acetylcy steine and Metamizole may falsely depress this assay. Reference Range HDL <40 mg/dL Low HDL Cholesterol HDL >or= 60 mg/dL High HDL Cholesterol Serum or plasma cholesterol in VLDL measurement (mass/volume)on 02-16-2021 Cholesterol in VLDL [Mass/Vol] 19 mg/dL 5-40 [facility] Work Phone: Serum or plasma creatinine m easurement (mass/volume)on 02-16-2021 Creatinine [Mass/Vol] 0.88 mg/dL 0.55-1.02 [facility] Work Phone: Comment on above: The validity of the calculated GFR & GFRAA in patients over 70 years has not been determined. Clinical correlation is essential. Serum or plasma low density lipoprotein (LDL) cholesterol measurement (mass/volume)on 02-16-2021 Cholesterol in LDL [Mass/Vol] 51 mg/dL 0-130 [facility] Work Phone: Serum or plasma urea nitroge n measurement (mass/volume)on 02-16-2021 Urea nitrogen [Mass/Vol] 17 mg/dL 7-18 [facility] Work Phone: Thin prep Papanicolaou smear with manual screeningon 02-16-2021 Thin prep Papanicolaou smear with manual screening 34 U/L 15-37 [facility] Work Phone: Thin prep Papanicolaou smear with manual screening 8 5-15 [facility] Work Phone: Dermatopathologyon 7 Dermatopathology Pathologist: LINDA HOWARDate of Procedure: 11/21/2016Date Received: 11/22/2016Date Reported 11/25/2016Submitting Physician: SELVIN MUSTAFA MDLocation: ADERM FINAL DIAGNOSISSKIN, RIGHT UPPER ANT GARCIA, SHAVE BIOPSY:INFLAMED MODERATELY DYSPLASTIC JUNCTIONAL NEVUS, INKED MARGINS FREE IN PLANESOF SECTIONS EXAMINED. Electronically Signed Out by NIDA PEREIRA M.D. Electronically SignedOut By NIDA PEREIRA MD/[facility] Microscopic Description:Microsco pic analysis shows an asymmetric proliferation of melanocytes, withlentiginous hyperplasia of epidermis. In addition to melanocytes that nestirregularly along the dermal-epidermal junction, other features of dysplasiainclude melanocyte bridging, papillary dermal fibroplasia, melanophages, andinflammatory cells in papillary dermis. The melanocytes show random cytologicatypia.Clin ical History:R/O DPN. Shave biopsy. ([facility]) Specimens Submitted As:A: SKIN, RIGHT UPPER ANT GARCIA Gross Description:Received in formalin is one montilla-brown piece of skin measuring 7 x 7 x 1 mm. Inked and embedded in toto.mlz/11/22/2016 Normal [facility] Comment on above: Performed By: #### D ####Dermatopathology Vital Signs Date Time Vital Sign Value Performing Clinician Faci lity 10-29-2024 12:58-0400 Body height 160.[address] Carlie Renner MD Work Phone: [facility] 10-29-2024 12:58-0400 Body mass index (BMI) [Ratio] 32.8 kg/m2 Dr. Carlie Renner MD Work Phone: [facility] 10-29-2024 12:58-0400 Body temperature 97.2 [degF] Dr. Carlie Renner MD Work Phone: [facility] 10-29-2024 12:58-0400 Body weight 83.[address] Carlie Renner MD Work Phone: [facility] 10-29-2024 12:58-0400 Diastolic blood pressure 66 mm[Hg] Dr. Carlie Renner MD Work Phone: [facility] 10-29-2024 12:58-0400 Heart rate 63 /min Dr. Carlie Renner MD Work Phone: [facility] 10-29-2024 12:58-0400 Respiratory rate 16 /min Dr. Carlie Renner MD Work Phone: [facility] 10-29-2024 12:58-0400 SaO2% (BldA) [Mass fraction] 97 % Dr. Carlie Renner MD Work Phone: [facility] 10-29-2024 12:58-0400 Systolic blood pressure 120 mm[Hg] Dr. Carlie Renner MD Work Phone: [facility] 07-20-2024 20:22-0400 Body temperature 97.6 [degF] Dr. Carlie Renner MD Work Phone: [facility] 07-20-2024 20:22-0400 Diastolic blood pressure 76 mm[Hg] Dr. Carlie Renner MD Work Phone: [facility] 07-20-2024 20:22-0400 Heart rate 81 /min Dr. Carlie Renner MD Work Phone: [facility] 07-20-2024 20:22-0400 Respiratory rate 14 /min Dr. Carlie Renner MD Work Phone: [facility] 07-20-2024 20:22-0400 SaO2% (BldA) [Mass fraction] 100 % Dr. Carlie Renner MD Work Phone: [facility] 07-20-2024 20:22-0400 Systolic blood pressure 118 mm[Hg] Dr. Carlie Renner MD Work Phone: [facility] 07-20-2024 18:41-0400 Body height 160.[address] Carlie Renner MD Work Phone: [facility] 06-07-2021 12:14-0400 Body temperature 97.4 [degF] Dr. Carlie Renner Work Phone: [facility] Work Phone: 06-07-2021 12:14-0400 Diastolic blood pressure 81 mm[Hg] Dr. Carlie Renner Work Phone: [facility] Work Phone: 06-07-2021 12:14-0400 Heart rate 85 /min Dr. Carlie Renner Work Phone: [facility] Work Phone: 06-07-2021 12:14-0400 Respiratory rate 16 /min Dr. Carlie Renner Work Phone: [facility] Work Phone: 06-07-2021 12:14-0400 SaO2% (BldA) [Mass fraction] 97 % Dr. Carlie Renner Work Phone: [facility] Work Phone: 06-07-2021 12:14-0400 Systolic blood pressure 125 mm[Hg] Dr. Carlie Renner Work Phone: [facility] Work Phone: 06-07-2021 10:36-0400 Body height 160.[address] Carlie Renner Work Phone: [facility] Work Phone: 06-07-2021 10:36-0400 Body mass index (BMI) [Ratio] 33.5 kg/m2 Dr. Carlie Renner Work Phone: [facility] Work Phone: 06-07-2021 10:36-0400 Body weight [address] Carlie Renner Work Phone: [facility] Work Phone: 04-03-2021 17:47-0500 Diastolic blood pressure 76 mm[Hg] Dr. Carlie Renner Work Phone: [facility] Work Phone: 04-03-2021 17:47-0500 Heart rate 96 /min Dr. Carlie Renner Work Phone: [facility] Work Phone: 04-03-2021 17:47-0500 Respiratory rate 15 /min Dr. Carlie Renner Work Phone: [facility] Work Phone: 04-03-2021 17:47-0500 SaO2% (BldA) [Mass fraction] 97 % Dr. Carlie Renner Work Phone: [facility] Work Phone: 04-03-2021 17:47-0500 Systolic blood pressure 130 mm[Hg] Dr. Carlie Renner Work Phone: [facility] Work Phone: 04-03-2021 10:52-0500 Body mass index (BMI) [Ratio] 33.6 kg/m2 Dr. Carlie Renner Work Phone: [facility] Work Phone: 04-03-2021 10:52-0500 Body temperature 97.1 [degF] Dr. Carlie Renner Work Phone: [facility] Work Phone: 04-03-2021 10:52-0500 Body weight 86.[address] Carlie Renner Work Phone: [facility] Work Phone: Encounters Encounter Date Encounter Type Care Provider Facility Start: 10-29-2024 End: 10-29-[address] Carlie Renner MD Work Phone: -[facility] Start: 10-29-2024 End: 10-29-[address] Anni Drummond MD -[facility] Work Phone: Start: 10-29-2024 End: 10-29-[address] Anni Drummond MD -[facility] Work Phone: Start: 10-29-2024 End: 10-29-[address] Anni Drummond MD [facility] Start: 10-29-2024 End: 10-29-[address] Carlie Renner MD Work Phone: -[facility] Start: 10-29-2024 End: 10-29-2024 ambulatory Anni Drummond Facility:[facility] Start: 07-20-2024 End: 07-20-2024 Emergency department patient visit Dr. Carlie Renner MD Work Phone: -Emergency Department Work Phone: Start: 09-17-2022 End: 09-17-2022 ambulatory [facility] Work Phone: Start: 09-17-2022 End: 09-17-2022 Patient encounter procedure [facility] Start: 03-20-2022 End: 03-20-2022 ambulatory [facility] Work Phone: Start: 03-20-2022 End: 03-20-2022 Patient encounter procedure [facility] Start: 06-21-2021 End: 06-21-[address] Carlie Renner Work Phone: [facility] Start: 06-07-2021 Non-patient / Non-visit Dr. Carlie Renner Work Phone: [facility] Start: 06-07-2021 End: 06-07-2021 Admission to same day surgery center Dr. Carlie Renner Work Phone: [facility]-Endoscopy Start: 04-18-2021 End: 04-18-[address] Carlie Renner Work Phone: [facility] Start: 04-03-2021 End: 04-03-2021 Emergency department patient visit Dr. Carlie Renner Work Phone: [facility]-Emergency Department Start: 04-03-[address] Carlie heath Work Phone: [facility]-Physical Therapy Start: 03-28-2021 End: 03-28-[address] Carlie Renner Work Phone: [facility]-Radiology, [place] Start: 03-21-[address] Carlie heath Work Phone: [facility]-Massage Therapy, [facility] Start: 02-16-[address] Carlie Renner Work Phone: [facility] Start: 11-21-2016 Ambulatory Selvin Mustafa Facilit [id number] [...] Date Care Activity Detail Author Start: 07-20-2024 [facility] Start: 06-07-2021 Colonoscopy w/biopsy single/multiple COLONOSCOPY AND BIOPSY [facility] Work Phone: Start: 06-07-2021 Colsc flx w/rmvl of tumor polyp lesion snare tq COLONOSCOPY W/LESION REMOVAL [facility] Work Phone: Start: 06-07-2021 Patient discharge [facility] Work Phone: CBC W Auto Different ial panel - Blood [facility] Comprehensive metabo lic 1999 panel - Serum or Plasma [facility] Lipid 1996 panel - S lavonne or Plasma [facility] Patient Education [facility] Work Phone: Patient referral [facility] Work Phone: T4 free measurement [facility] Thyroid stimulating hormone measurement [facility] Immunizations Immunization Date Immunization Notes Care Provider Filomena solares 12-22-2017 tetanus toxoid, redu sheree diphtheria toxoid, and acellular pertussis vaccine, adsorbed Dr. Carlie Renner Work Phone: [facility] Payers Date Payer Category Payer Self-pay [id number] 2005 Medicare [id number] 2005 Private Health Insurance [id number] Medicare [id number] Unknown [id number] Unknown [id number] Unknown [id number] Social History Date Type Detail Facility Start: 06-06-2021 End: 06-21-2021 Tobacco smoking status KYIS Unknown if ever smoked [facility] Start: 1940 Sex Assigned At Female W [facility] Start: 07-20-2024 Tobacco smoking stat us NHIS Never smoked tobacco (finding) [facility] Goals Date Patient Goal Desired Activity /State Mental Status Date Assessment Result Facility 07-20-2024 Cognitive function Level Of Cons ciousness Awake;Alert;Appropriate [facility] Work Phone: 06-07-2021 Cognitive function Voice/Name [facility] Work Phone: Evaluation note 10-29-2024 Note Date & Type Note Facility 10-29-2024 Evaluation note Diagnosis Onset Date Resolution Health care maintenance acute A ugust 2024 12:48pm Asthma chronic October 29 025 12:48pm Debility chronic October 29 025 12:48pm Hypertension chronic October 29, 2024 12:48pm Dementia suspected October 29, 2 025 12:48pm [facility] Work Phone: Evaluation note Note Date & Type Note Facility Evaluation note Diagnosis Onset Date Abnormal CT scan, gastrointestinal tract acute [facility] Work Phone: Evaluation note Note Date & Type Note Facility Evaluation note Diagnosis Onset Date Abnormal CT scan, gastrointestinal tract acute Solitary rectal ulcer syndrome acute [facility] Work Phone: Evaluation note Note Date & Type Note Facility Evaluation note No assessment information availa ble [facility] Work Phone: Hospital Discharge instructions Note Date & Type Note Facility Hospital Discharge instructions Additional Instructions Symptoms resolved. If you develop any respiratory distress, return to ED for reevaluation. [facility] Work Phone: Reason for referral (narrative) Note Date & Type Note Facility Reason for referral (narrative) No reason for referral information available [facility] Work Phone: Summary Purpose Family History No Family History Records Found Relationship Condition Age at Onset Recorded Date/T jyoti mother Cardiac disease Unknown daughter Malignant neoplasm of cervix Unknown Advance Directives No Advanced Directives Records Found Advance Directive Response Recorded Date/ Time Living Will Yes June 06, 2021 8:09am Power of Ornamental Brick Installer Yes June 06 8:09am Advance Directive Response Recorded Date/ Time Name of Medical Power of Ornamental Brick Installer ester Augustin June 06, 2021 8:09am Living Will Yes June 06, 2021 8:09am Power of Ornamental Brick Installer Yes June 06 8:09am Advance Directive Response Recorded Date/ Time Living Will Yes June 06, 2021 7:09am Power of Ornamental Brick Installer Yes June 06 7:09am Advance Directive Response Recorded Date/ Time Do you have a Healthcare Power of Ornamental Brick Installer? Yes July 20, 2024 7:17pm Chief Complaint [...] - HAS PPWK October 29, 2024 12:48pm Reason for Visit Admit Date Health care maintenance October 29 12:48pm Asthma October 29, 2024 12 :48pm Debility October 29, 2024 12 :48pm Hypertension October 29, 2024 12 :48pm Dementia October 29, 2024 12 :48pm Additional Source Comments INFORMATION SOURCE (unrecogn ized section and content) DATE CREATED AUTHOR 08/27/2017 [facility] DATE CREATED AUTHOR AUTHOR'S ORGANIZ ATION 11/04/2024 [facility] Goals (unrecognized section and content) Goals [...] Dr. Carlie Renner MD Primary Care Provider, Attendin g Provider Active Team Status: Active Member Role [...] October 29, 2024 End: October 29, 2024 Team Status: Active Member Role/Relationship Status Dates Dr. Anni Drummond MD Primary Care Provider Active Team Status: Inactive Member Role/Relationship Status Dates Dr. Anni Drummond MD Primary Care Provider Active Start: October 29, 2024 End: October 29, 2024 Dr. Anni Drummond MD Attending Provider Active Start: October 29, 2024 End: October 29, 2024 Dr. Anni Drummond MD Referring Provider Active Start: October 29, [...] BE BASED ON THE PRIMARY CLINICAL RECORDS. [facility] [employer], [facility]. provides no warranty or guarantee of the accuracy or completeness of information in this document.
[2025-01-16] MEDS: 0.9% Normal Saline (1000mL) 1,000 ML 1000 ML IV (14:50)
[2025-01-16 14:52] LABS: Hematocrit 41.3 % (37-47); Hemoglobin 13.7 g/dL (12.0-15.0); Immature Granulocytes Count 0.030 X10^3/uL (0.0-0.0); Mean Corp Hgb Conc 33.2 g/dL (32-36); Mean Corpuscular Volume 88.8 fL (81-99); Mean Platelet Vol. 11.4 fl (6.2-12.0); NRBC Flagged by Analyzer 0 % (0-5); Platelet Count 218 K/mm3 (150-450); RBC Distribution Width CV 13.2 % (11.6-14.6); RBC Distribution Width SD 43.4 fl (35.1-43.9); Red Blood Count 4.65 M/mm3 (4.2-5.4); White Blood Count 11.1 K/mm3 (4.4-11.0)
[2025-01-16 15:13] LABS: AST(SGOT) 22 U/L (<=31); Alanine Aminotransfer ALT/SGPT 18 U/L (<=34); Albumin, Serum 3.7 g/dL (3.4-4.8); Alkaline Phosphatase 151 U/L (35-104); Anion Gap 12 (5-15); BUN 17 mg/dL (4-19); BUN/Creat Ratio 14.7 RATIO (10-20); Calcium,Total 9.7 mg/dL (7.6-11.0); Carbon Dioxide 25.0 mmol/L (21.0-32.0); Chloride 94 mmol/L (98-108); Estimated Creatinine Clearance 41.13 ml/min (50-250); Globulin 2.8 g/dL (2.2-4.2); Glucose 130 mg/dL (70-99); Potassium 4.2 mmol/L (3.3-5.1)
[2025-01-16 15:58] LABS: Mucous, Urine 0 SEEN /hpf (<or=2+)
[2025-01-16 16:16] LABS: Color, Urine Straw (Yellow); Glucose, Dipstick Normal (Normal); Ketone-Dipstick Negative (Negative); Leukocyte Esterase-Dipstick 25 /ul (Negative); Nitrite-Dipstick Negative (Negative); Occult Blood-Urine Negative /ul (Negative); Protein-Dipstick 15 mg/dl (Negative); Specific Gravity, Urine 1.010 (1.002-1.030); Urine Bilirubin Dipstick Negative (Negative)
[2025-01-16 16:37] LABS: Red Blood Cells-Urine 0-5 SEEN /hpf (0-5); Squamous Epithelial Cells - UA 0-5 SEEN /hpf (5-10)
== END 2025-01-16 18:11 | disposition home or self-care (01) ==
PROVIDERS: Emergency Provider Emergency Medicine; PCP Internal Medicine; Visit Provider Emergency Medicine
DX: R41.0 Disorientation, unspecified (principal); F03.90 Unspecified dementia, unspecified severity, without behavioral disturbance, psychotic disturbance, mood disturbance, and anxiety; E87.1 Hypo-osmolality and hyponatremia; R44.3 Hallucinations, unspecified; I10 Essential (primary) hypertension; J45.909 Unspecified asthma, uncomplicated; D72.829 Elevated white blood cell count, unspecified
CPT/HCPCS: 71045; 80053; 81001; 85025; 87631; 93005; 96360; 99285; P9612; A4216

== ENCOUNTER 2025-01-30 11:01 | Inpatient (IN) | payer MEDICARE, OTHER, SELFPAY ==
[2025-01-30] VITALS (12 sets, daily range): BP systolic 91–111; BP diastolic 50–83; PULSE 80–97; RESP 14–18; TEMP 36.2–37; O2SAT 90–98; BMI 37.8; BMI 35.5
[2025-01-30 11:43] LABS: Mucous, Urine 0 SEEN /hpf (<or=2+)
--- OUTSIDE RECORDS SUMMARY | 2025-01-30 11:44 | XMS RPT_ITS | CCD ---
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 Carlie Renner Primary Care Provider Dr. Carlie Renner Referring Provider [phone] Martin Attending Provider [phone] Mario Booth Other Provider Dr. Carlie [...] Auto (Unsp spec) [#/Vol] 1.76 10*3/uL 0.83-4.51 [facility] Absolute neutrophil countOrd ered By: Anni Jonessid on 10-29-2024 Neutrophils (Bld) [#/Vol] 6.5 10*3/uL 2.0-7.7 [facility] Anion gap in Serum or Plasma Ordered By: Anni Drummond on 10-29-2024 Anion gap [Moles/Vol] 14 mmol/L 5-15 [facility] Automated lymphocyte count a s percentage of total leukocytesOrdered By: Anni Drummond on 10-29-2024 Lymphocytes/100 WBC Auto (Unsp spec) 19.7 % 19-41 [facility] BUN/creatinine ratioOrdered By: Michellewestoverrene Drummond on 10-29-2024 Urea nitrogen/Creatinine [Mass ratio] 15.1 mg/mg 10-20 [facility] Basophil percentageOrdered B y: Anni Drummond on 10-29-2024 Basophils/100 WBC (Bld) 0.3 % 0-1 [facility] Bilirubin, totalOrdered By: Anni Drummond on 10-29-2024 Bilirubin [Mass/Vol] 0.61 mg/dL 0.00-1.30 [facility] CBC W/Diff, Automatedon 10-02 Absolute Lymph 1.76 X10 3/uL Normal 0.83-4.51 [facility] Comment on above: Performed By: #### L 501.9520, L100.0100, L500.4100, L500.4050, L506.0400 #### [facility] [address] [place], [address] Absolute Neut 6.5 X10 3/uL Normal 2.0-7.7 [facility] Comment on above: Performed By: #### L 501.9520, L100.0100, L500.4100, L500.4050, L506.0400 #### [facility] [address] [place], [address] Basophils/100 WBC (Bld) 0.3 % Normal 0-1 [facility] Comment on above: Performed By: #### L 501.9520, L100.0100, L500.4100, L500.4050, L506.0400 #### [facility] [address] [place], [address] Eosinophils/100 WBC (Bld) 1.0 % Normal 0-5 [facility] Comment on above: Performed By: #### L 501.9520, L100.0100, L500.4100, L500.4050, L506.0400 #### [facility] [address] [place], [address] Erythrocyte distribution width (RBC) [Ratio] 13.3 % Normal 11.6-14.6 [facility] Comment on above: Performed By: #### L 501.9520, L100.0100, L500.4100, L500.4050, L506.0400 #### [facility] [address] [place], [address] Hematocrit (Bld) [Volume fraction] 47.5 % High 37-47 [facility] Comment on above: Performed By: #### L 501.9520, L100.0100, L500.4100, L500.4050, L506.0400 #### [facility] [address] [place], [address] Hemoglobin (Bld) [Mass/Vol] 15.2 g/dL High 12.0-15.0 [facility] Comment on above: Performed By: #### L 501.9520, L100.0100, L500.4100, L500.4050, L506.0400 #### [facility] [address] [place], [address] IG% 0.200 Normal 0.0-0.9 [facility] Comment on above: Result Comment: IG% - Immature Granulocytes (promyelocytes, myelocytes and metamyelocytes) > 1% indicates that a LEFT SHIFT is Present. Performed By: #### L 501.9520, L100.0100, L500.4100, L500.4050, L506.0400 #### [facility] [address] [place], [address] Lymphocytes/100 WBC (Bld) 19.7 % Normal 19-41 [facility] Comment on above: Performed By: #### L 501.9520, L100.0100, L500.4100, L500.4050, L506.0400 #### [facility] [address] [place], [address] MCH (RBC) [Entitic mass] 29.6 pg Normal 27.0-32.0 [facility] Comment on above: Performed By: #### L 501.9520, L100.0100, L500.4100, L500.4050, L506.0400 #### [facility] [address] [place], [address] MCHC (RBC) [Mass/Vol] 32.0 g/dL Normal 32-36 [facility] Comment on above: Performed By: #### L 501.9520, L100.0100, L500.4100, L500.4050, L506.0400 #### [facility] [address] [place], [address] MCV (RBC) [Entitic vol] 92.4 fL Normal 81-99 [facility] Comment on above: Performed By: #### L 501.9520, L100.0100, L500.4100, L500.4050, L506.0400 #### [facility] [address] [place], [address] Monocytes/100 WBC (Bld) 6.5 % Normal 0-10 [facility] Comment on above: Performed By: #### L 501.9520, L100.0100, L500.4100, L500.4050, L506.0400 #### [facility] [address] [place], [address] Neutrophils/100 WBC (Bld) 72.3 % High 47-70 [facility] Comment on above: Performed By: #### L 501.9520, L100.0100, L500.4100, L500.4050, L506.0400 #### [facility] [address] [place], [address] Nucleated RBC (Bld) [#/Vol] 0 10*3/uL Normal 0-5 [facility] Comment on above: Performed By: #### L 501.9520, L100.0100, L500.4100, L500.4050, L506.0400 #### [facility] [address] [place], [address] Platelet mean volume (Bld) [Entitic vol] 12.0 fL Normal 6.2-12.0 [facility] Comment on above: Performed By: #### L 501.9520, L100.0100, L500.4100, L500.4050, L506.0400 #### [facility] [address] [place], [address] Platelets (Bld) [#/Vol] 203 10*3/uL Normal 150-450 [facility] Comment on above: Performed By: #### L 501.9520, L100.0100, L500.4100, L500.4050, L506.0400 #### [facility] [address] [place], [address] RBC (Bld) [#/Vol] 5.14 10*6/uL Normal 4.2-5.4 [facility] Comment on above: Performed By: #### L 501.9520, L100.0100, L500.4100, L500.4050, L506.0400 #### [facility] [address] [place], [address] RDW SD 45.8 fl High 35.1-43.9 [facility] Comment on above: Performed By: #### L 501.9520, L100.0100, L500.4100, L500.4050, L506.0400 #### [facility] [address] [place], [address] WBC (Bld) [#/Vol] 8.9 10*3/uL Normal 4.4-11.0 [facility] Comment on above: Performed By: #### L 501.9520, L100.0100, L500.4100, L500.4050, L506.0400 #### [facility] [address] [place], [address] Calculated very low density lipoprotein (VLDL) cholesterol measurementOrdered By: Anni Drummond on 10-29-2024 Calculated very low density lipoprotein (VLDL) cholesterol measurement 18 mg/dL 5-40 [facility] Carbon dioxide, total [Moles /volume] in Central venous bloodOrdered By: Anni Drummond on 10-29-2024 CO2 [Moles/Vol] 25.0 mmol/L 21.0-32.0 [facility] Chloride assayOrdered By: Juani monique Robertmarni on 10-29-2024 Chloride [Moles/Vol] 101 mmol/L 98-108 [facility] Comprehensive Metabolic Prof ilon 10-29-2024 Albumin [Mass/Vol] 4.1 g/dL Normal 3.4-4.8 [facility] Comment on above: Performed By: #### L 501.9520, L100.0100, L500.4100, L500.4050, L506.0400 #### [facility] [address] [place], [address] Albumin/Globulin [Mass ratio] 1.5 {ratio} Normal 0.9-2.4 [facility] Comment on above: Performed By: #### L 501.9520, L100.0100, L500.4100, L500.4050, L506.0400 #### [facility] [address] [place], [address] ALK PHOS 138 U/L High 35-104 [facility] Comment on above: Performed By: #### L 501.9520, L100.0100, L500.4100, L500.4050, L506.0400 #### [facility] [address] [place], [address] ALT [Catalytic activity/Vol] 21 U/L Normal <=34 [facility] Comment on above: Performed By: #### L 501.9520, L100.0100, L500.4100, L500.4050, L506.0400 #### [facility] [address] [place], [address] AST [Catalytic activity/Vol] 26 U/L Normal <=31 [facility] Comment on above: Result Comment: Hemo lysis present, Results??could be affected. ?? Performed By: #### L 501.9520, L100.0100, L500.4100, L500.4050, L506.0400 #### [facility] [address] [place], [address] Bilirubin [Mass/Vol] 0.61 mg/dL Normal 0.00-1.30 [facility] Comment on above: Performed By: #### L 501.9520, L100.0100, L500.4100, L500.4050, L506.0400 #### [facility] [address] [place], [address] BUN/CRE 15.1 RATIO Normal 10-20 [facility] Comment on above: Performed By: #### L 501.9520, L100.0100, L500.4100, L500.4050, L506.0400 #### [facility] [address] [place], [address] Calcium [Mass/Vol] 10.2 mg/dL Normal 7.6-11.0 [facility] Comment on above: Performed By: #### L 501.9520, L100.0100, L500.4100, L500.4050, L506.0400 #### [facility] [address] [place], [address] Chloride [Moles/Vol] 101 mmol/L Normal 98-108 [facility] Comment on above: Performed By: #### L 501.9520, L100.0100, L500.4100, L500.4050, L506.0400 #### [facility] [address] [place], [address] CO2 [Moles/Vol] 25.0 mmol/L Normal 21.0-32.0 [facility] Comment on above: Performed By: #### L 501.9520, L100.0100, L500.4100, L500.4050, L506.0400 #### [facility] [address] [place], [address] Creatinine [Mass/Vol] 0.99 mg/dL Normal 0.70-1.20 [facility] Comment on above: Performed By: #### L 501.9520, L100.0100, L500.4100, L500.4050, L506.0400 #### [facility] [address] [place], [address] GAP 14 Normal 5-15 [facility] Comment on above: Performed By: #### L 501.9520, L100.0100, L500.4100, L500.4050, L506.0400 #### [facility] [address] [place], [address] GFR/1.73 sq M.predicted among non-blacks MDRD (S/P/Bld) [Vol rate/Area] 56 mL/min/{1.73_m2} Low >60 [facility] Comment on above: Result Comment: mL/m in/1.73m2 CKD-EPI Creatinine Equation (2020) Performed By: #### L 501.9520, L100.0100, L500.4100, L500.4050, L506.0400 #### [facility] [address] [place], [address] Globulin (S) [Mass/Vol] 2.8 g/dL Normal 2.2-4.2 [facility] Comment on above: Performed By: #### L 501.9520, L100.0100, L500.4100, L500.4050, L506.0400 #### [facility] [address] [place], [address] Glucose [Mass/Vol] 104 mg/dL High 70-99 [facility] Comment on above: Performed By: #### L 501.9520, L100.0100, L500.4100, L500.4050, L506.0400 #### [facility] [address] [place], [address] Potassium [Moles/Vol] 4.6 mmol/L Normal 3.3-5.1 [facility] Comment on above: Result Comment: Hemo lysis present, Results??could be affected. ?? Performed By: #### L 501.9520, L100.0100, L500.4100, L500.4050, L506.0400 #### [facility] [address] [place], [address] Sodium [Moles/Vol] 140 mmol/L Normal 133-145 [facility] Comment on above: Performed By: #### L 501.9520, L100.0100, L500.4100, L500.4050, L506.0400 #### [facility] [address] [place], [address] T PROT 6.9 g/dL Normal 5.9-8.4 [facility] Comment on above: Performed By: #### L 501.9520, L100.0100, L500.4100, L500.4050, L506.0400 #### [facility] [address] [place], [address] Urea nitrogen [Mass/Vol] 15 mg/dL Normal 4-19 [facility] Comment on above: Performed By: #### L 501.9520, L100.0100, L500.4100, L500.4050, L506.0400 #### [facility] [address] [place], [address] Eosinophil percentageOrdered By: Anni Drummond on 10-29-2024 Eosinophils/100 WBC (Bld) 1.0 % 0-5 [facility] Erythrocyte distribution wid th ratioOrdered By: Anni Drummond on 10-29-2024 Erythrocyte distribution width (RBC) [Ratio] 13.3 % 11.6-14.6 [facility] Erythrocyte distribution wid th standard deviationOrdered By: Anni Drummond on 10-29-2024 Erythrocyte distribution width (RBC) [Ratio] 45.8 fl High 35.1-43.9 [facility] Glomerular filtration rate ( GFR) estimation/1.73 sq m using serum, plasma, or whole bOrdered By: Anni Drummond on 10-29-2024 GFR/1.73 sq M.predicted among non-blacks MDRD (S/P/Bld) [Vol rate/Area] 56 mL/min/{1.73_m2} Low >60 [facility] Comment on above: mL/min/1.73m2 CKD-EP I Creatinine Equation (2020) Hematocrit Auto (Bld) [Volum e fraction]Ordered By: Anni Drummond on 10-29-2024 Hematocrit (Bld) [Volume fraction] 47.5 % High 37-47 [facility] Hemoglobin measurementOrdere d By: Anni Drummond on 10-29-2024 Hemoglobin (Bld) [Mass/Vol] 15.2 g/dL High 12.0-15.0 [facility] Immature granulocytes/100 WB C Auto (Bld)Ordered By: Anni Drummond on 10-29-2024 Immature granulocytes/100 WBC (Bld) 0.200 % 0.0-0.9 [facility] Comment on above: IG% - Immature Granu locytes (promyelocytes, myelocytes and metamyelocytes) > 1% indicates that a LEFT SHIFT is Present. Internal Medicine Office Vis itorobinson 10-29-2024 Internal Medicine Office Visit [facility] [address] [place] [address] [place] [address] OFFICE VISIT Date of Service: 10/29/24 MR#: [id number] Acct: [id number] Name: ANTONI KULKARNI Rep #: [id number] : 1940 Provider: Dr. Anni horne MD Age/Sex: 84/F Location: [facility] Status: Signed Intake Vital Signs 07/20/24 18:41 [...] PT - HAS PPWK Chief Complaint: establishing Ballistician Required: No Accompanied by: Daughter Is patient [...] year?: No Nurse's Note: establishing [facility] Medical History (Updated 10/29/24 @ 13:28 by [...] KULKARNI, is an 84-year-old female [facility]. No acute concerns at this time. The [...] to asbestos exposure during her employment at [employer]. She manages her asthma with the use [...] Resp Respirato (more content not included)... Normal [facility] LDL calc ser/plasOrdered By: Anni Drummond on 10-29-2024 Cholesterol in LDL [Mass/Vol] 56 mg/dL [facility] Comment on above: Dzwbknoscd=463-303 m g/dL & Higher Joak=056 mg/dL or greaterFriedwald Equation for LDL-C Laboratory - Chemistry and C hemistry - challengeOrdered By: Anni Jonesmarni on 10-29-2024 AST [Catalytic activity/Vol] 26 U/L <32 [facility] Comment on above: Hemolysis present, R esults could be affected. Lipid Profileon 10-29-2024 CHOL:HDL 2.10 Normal [facility] Comment on above: Performed By: #### L 501.9520, L100.0100, L500.4100, L500.4050, L506.0400 #### [facility] [address] [place], [address] Cholesterol [Mass/Vol] 141 mg/dL Normal <=200 [facility] Comment on above: Result Comment: Chol esterol level, Desirable <200 mg/dL Borderline high cholesterol 200-239 mg/dL High cholesterol >=240 mg/dL Recommendations of the NCEP Adult Treatment Panel for the following risk-cutoff thresholds for the [place] population. Performed By: #### L 501.9520, L100.0100, L500.4100, L500.4050, L506.0400 #### [facility] [address] [place], [address] Cholesterol in HDL [Mass/Vol] 67 mg/dL Normal [facility] Comment on above: Result Comment: Maite onal Cholesterol Education Program (NCEP) guidelines: <40 mg/dL: Low HDL-cholesterol (major risk factor for CHD) >= 60 mg/dL: High HDL-cholesterol (negative risk factor for CHD) HDL-cholesterol is affected by a number of factors, e.g. smoking, exercise, hormones, sex and age. Performed By: #### L 501.9520, L100.0100, L500.4100, L500.4050, L506.0400 #### [facility] [address] [place], [address] Cholesterol in LDL [Mass/Vol] 56 mg/dL Normal [facility] Comment on above: Result Comment: Bord ntfqqt=939-671 mg/dL Higher Fflq=101 mg/dL or greater Friedwald Equation for LDL-C Performed By: #### L 501.9520, L100.0100, L500.4100, L500.4050, L506.0400 #### [facility] [address] [place], [address] Cholesterol in VLDL [Mass/Vol] 18 mg/dL Normal 5-40 [facility] Comment on above: Performed By: #### L 501.9520, L100.0100, L500.4100, L500.4050, L506.0400 #### [facility] [address] [place], [address] Triglyceride [Mass/Vol] 91 mg/dL Normal [facility] Comment on above: Result Comment: The drugs N-Acetylcysteine and Metamizole may falsely depress this assay. Normal range: <150 mg/dL Borderline High: 150-199 mg/dL High: 200-499 mg/dL Very High: >500 mg/dL Performed By: #### L 501.9520, L100.0100, L500.4100, L500.4050, L506.0400 #### [facility] [address] [place], [address] MCV (mean corpuscular volume ) determinationOrdered By: Anni Drummond on 10-29-2024 MCV (RBC) [Entitic vol] 92.4 fL 81-99 [facility] Mean corpuscular hemoglobin (MCH) determinationOrdered By: Anni Drummond on 10-29-2024 MCH (RBC) [Entitic mass] 29.6 pg 27.0-32.0 [facility] Mean corpuscular hemoglobin concentration (MCHC) determinationOrdered By: Anni Drummond on 10-29-2024 MCHC (RBC) [Mass/Vol] 32.0 g/dL 32-36 [facility] Mean platelet volume determi nationOrdered By: Anni Drummond on 10-29-2024 Platelet mean volume (Bld) [Entitic vol] 12.0 fL 6.2-12.0 [facility] Monocyte percentageOrdered B y: Michelleyanetrene Drummond on 10-29-2024 Monocytes/100 WBC (Bld) 6.5 % 0-10 [facility] Neutrophil percentageOrdered By: Juanimonique Jonesaubreysid on 10-29-2024 Neutrophils/100 WBC (Bld) 72.3 % High 47-70 [facility] Nucleated red blood cell per centageOrdered By: Anni Drummond on 10-29-2024 Nucleated RBC/100 WBC (Bld) [Ratio] 0 % 0-5 [facility] Platelet countOrdered By: Juani yaniquepresley Drummond on 10-29-2024 Platelets (Bld) [#/Vol] 203 10*3/uL 150-450 [facility] Potassium measurement (mass/ volume)Ordered By: Anni Drummond on 10-29-2024 Potassium (Unsp spec) [Mass/Vol] 4.6 mmol/L 3.3-5.1 [facility] Comment on above: Hemolysis present, R esults could be affected. RBC Auto (Bld) [#/Vol]Ordere d By: Anni Drummond on 10-29-2024 RBC (Bld) [#/Vol] 5.14 10*6/uL 4.2-5.4 [facility] Screening total cholesterol/ high density lipoprotein (HDL) cholesterol ratioOrdered By: Anni Drummond on 10-29-2024 Cholesterol.total/Choles terol in HDL [Mass ratio] 2.10 {ratio} [facility] Serum creatinine measurement (mass/volume)Ordered By: Anni Drummond on 10-29-2024 Creatinine [Mass/Vol] 0.99 mg/dL 0.70-1.20 [facility] Serum globulin measurementOr dered By: Anni Drummond on 10-29-2024 Globulin (S) [Mass/Vol] 2.8 g/dL 2.2-4.2 [facility] Serum glucose measurement (m ass/volume)Ordered By: Anni Drummond on 10-29-2024 Glucose [Mass/Vol] 104 mg/dL High 70-99 [facility] Serum or plasma alanine rudd otransferase (ALT) measurementOrdered By: Huyrene Jonesaubreysid on 10-29-2024 ALT [Catalytic activity/Vol] 21 U/L <35 [facility] Serum or plasma albumin hailey urement (mass/volume)Ordered By: yanet Abdirahman10-29-2024 Albumin [Mass/Vol] 4.1 g/dL 3.4-4.8 [facility] Serum or plasma albumin/glob ulin mass ratioOrdered By: Robertaubrey on 10-29-2024 Albumin/Globulin [Mass ratio] 1.5 {ratio} 0.9-2.4 [facility] Serum or plasma alkaline vini sphatase measurementOrdered By: Robert10-29-2024 ALP [Catalytic activity/Vol] 138 U/L High 35-104 [facility] Serum or plasma calcium hailey urement (mass/volume)Ordered By: Abdirahman10-29-2024 Calcium [Mass/Vol] 10.2 mg/dL 7.6-11.0 [facility] Serum or plasma cholesterol in HDL measurement (mass/volume)Ordered By: Juani Abdiarhman10-29-2024 Cholesterol in HDL [Mass/Vol] 67 mg/dL >40 [facility] Comment on above: National Cholesterol Education Program (NCEP) guidelines:<40 mg/dL: Low HDL-cholesterol (major risk factor for CHD)>= 60 mg/dL: High HDL-cholesterol (negative risk factor for CHD)HDL-cholesterol is affected by a number of factors, e.g. smoking, exercise, hormones, sex and age. Serum or plasma cholesterol measurement (mass/volume)Ordered By: Huy Robertaubreysid 10-29-2024 Cholesterol [Mass/Vol] 141 mg/dL <201 [facility] Comment on above: Cholesterol level, D esirable <200 mg/dLBorderline high cholesterol 200-239 mg/dLHigh cholesterol >=240 mg/dLRecommendations of the NCEP Adult Treatment Panel for the following risk-cutoff thresholds for the [place] population. Serum or plasma urea nitroge n measurement (mass/volume)Ordered By: Michelleongrene Drummond 5 Urea nitrogen [Mass/Vol] 15 mg/dL 4-19 [facility] Sodium levelOrdered By: Michelle Drummond on 10-29-2024 Sodium [Moles/Vol] 140 mmol/L 133-145 [facility] T4 Free Directon 10-29-2024 T4 FREE DIRECT 1.10 ng/dL Normal 0.76-1.46 [facility] Comment on above: Performed By: #### L 501.9520, L100.0100, L500.4100, L500.4050, L506.0400 #### [facility] [address] [place], [address] T4 freeOrdered By: Anni Robertmarni on 10-29-2024 Free T4 [Mass/Vol] 1.10 ng/dL 0.76-1.46 [facility] TSH DL <= 0.005 mIU/L QnOrde red By: Anni Drummond on 10-29-2024 TSH Qn 2.360 uIU/mL 0.300-4.200 [facility] Thyroid Stim Hormone (TSH)on 10-29-2024 TSH 2.360 uIU/mL Normal 0.300-4.200 [facility] Comment on above: Performed By: #### L 501.9520, L100.0100, L500.4100, L500.4050, L506.0400 #### [facility] [address] [place], [address] Total proteinOrdered By: Daniel Drummond on 10-29-2024 Protein [Mass/Vol] 6.9 g/dL 5.9-8.4 [facility] Triglycerides measurementOrd ered By: Anni Drummond on 10-29-2024 Triglyceride [Mass/Vol] 91 mg/dL <199 [facility] Comment on above: The drugs N-Acetylcy steine and Metamizole may falsely depress this assay. Normal range: <150 mg/dLBorderline High: 150-199 mg/dLHigh: 200-499 mg/dLVery High: >500 mg/dL White blood cell (WBC) count Ordered By: Anni Drummond on 10-29-2024 WBC (Bld) [#/Vol] 8.9 10*3/uL 4.4-11.0 [facility] Emergency Department Summary on 07-20-2024 Emergency Department Summary [facility] Medical Records Department [address] [place] [address] Emergency Department Summary 07/20/24 MR#: [id number] Acct: [id number] Name: ANTONI KULKARNI Rep #: [id number] : 1940 83 From: [facility] PCP: [...] History of asthma. Currently denies any symptoms. [facility] Medical History Wears glasses Wears hearing aid [...] Clinical Impressio (more content not included)... Normal [facility] Basophil percentageOrdered B y: Carlie Renner on 09-17-2022 Chloride [Moles/Vol] 104 mmol/L 98-107 [facility] Glucose [Mass/Vol] 99 mg/dL 74-106 [facility] Potassium [Moles/Vol] 4.2 mmol/L 3.5-5.1 [facility] Sodium [Moles/Vol] 139 mmol/L 136-145 [facility] Laboratory - Chemistry and C hemistry - challengeOrdered By: Carlie Renner on 09-17-2022 CO2 [Moles/Vol] 28.0 mmol/L 21.0-32.0 [facility] Urea nitrogen/Creatinine [Mass ratio] 14.4 mg/mg 10-20 [facility] No Panel InformationOrdered By: Carlie Renner on 09-17-2022 Estimated GFR (MDRD) Amer 84 mL/min >60 [facility] Comment on above: GFR Calc Estimated GFR (MDRD) Non-Af Amer 69 mL/min >60 [facility] Comment on above: Non- GFR Calc Serum or plasma calcium hailey urement (mass/volume)Ordered By: Carlie Renner on 09-17-2022 Calcium [Mass/Vol] 9.4 mg/dL 8.5-10.1 [facility] Serum or plasma creatinine m easurement (mass/volume)Ordered By: Carlie Renner on 09-17-2022 Creatinine [Mass/Vol] 0.84 mg/dL 0.55-1.02 [facility] Comment on above: The validity of the calculated GFR & GFRAA in patients over 70 years has not been determined. Clinical correlation is essential. Serum or plasma urea nitroge n measurement (mass/volume)Ordered By: Carlie Renner on 09-17-2022 Urea nitrogen [Mass/Vol] 12 mg/dL - [facility] Thin prep Papanicolaou smear with manual screeningOrdered By: Carlie Renner on 09-17-2022 Thin prep Papanicolaou smear with manual screening 7 5-15 [facility] Basophil percentageOrdered B y: Dr. Renner on 03-20-2022 Chloride [Moles/Vol] 107 mmol/L 98-107 [facility] Cholesterol [Mass/Vol] 164 mg/dL <200 [facility] Comment on above: <200 mg/dL Desirable 200-240 mg/dL Borderline >240 mg/dL High Risk Glucose [Mass/Vol] 85 mg/dL 74-106 [facility] Potassium [Moles/Vol] 4.2 mmol/L 3.5-5.1 [facility] Sodium [Moles/Vol] 143 mmol/L 136-145 [facility] Triglyceride [Mass/Vol] 114 mg/dL <199 [facility] Comment on above: The drugs N-Acetylcy steine and Metamizole may falsely depress this assay.Serum Triglycerides Reference Interval Normal <150 mg/dL Borderline high 150 - 199 mg/dL High 200 - 499 mg/dL Very High > or = 500 mg/dL Laboratory - Chemistry and C hemistry - challengeOrdered By: Dr. Renner on 03-20-2022 ALT [Catalytic activity/Vol] 23 U/L 13-56 [facility] CO2 [Moles/Vol] 29.0 mmol/L 21.0-32.0 [facility] Urea nitrogen/Creatinine [Mass ratio] 27.5 mg/mg 10-20 [facility] No Panel InformationOrdered By: Dr. Renner on 03-20-2022 Estimated GFR (MDRD) Amer 99 mL/min >60 [facility] Comment on above: GFR Calc Estimated GFR (MDRD) Non-Af Amer 82 mL/min >60 [facility] Comment on above: Non- GFR Calc Serum or plasma calcium hailey urement (mass/volume)Ordered By: Dr. Renner on 03-20-2022 Calcium [Mass/Vol] 9.5 mg/dL 8.5-10.1 [facility] Serum or plasma cholesterol in HDL measurement (mass/volume)Ordered By: Dr. Renner on 03-20-2022 Cholesterol in HDL [Mass/Vol] 77 mg/dL >40 [facility] Comment on above: The drugs N-Acetylcy steine and Metamizole may falsely depress this assay. Reference Range HDL <40 mg/dL Low HDL Cholesterol HDL >or= 60 mg/dL High HDL Cholesterol Serum or plasma cholesterol in VLDL measurement (mass/volume)Ordered By: Dr. Renner on 03-20-2022 Cholesterol in VLDL [Mass/Vol] 23 mg/dL 5-40 [facility] Serum or plasma creatinine m easurement (mass/volume)Ordered By: Dr. Renner on 03-20-2022 Creatinine [Mass/Vol] 0.73 mg/dL 0.55-1.02 [facility] Comment on above: The validity of the calculated GFR & GFRAA in patients over 70 years has not been determined. Clinical correlation is essential. Serum or plasma low density lipoprotein (LDL) cholesterol measurement (mass/volume)Ordered By: Dr. Renner on 03-20-2022 Cholesterol in LDL [Mass/Vol] 64 mg/dL 0-130 [facility] Serum or plasma urea nitroge n measurement (mass/volume)Ordered By: Dr. Renner on 03-20-2022 Urea nitrogen [Mass/Vol] 20 mg/dL 7-18 [facility] Thin prep Papanicolaou smear with manual screeningOrdered By: Dr. Renner on 03-20-2022 Thin prep Papanicolaou smear with manual screening 14 U/L 15-37 [facility] Thin prep Papanicolaou smear with manual screening 7 5-15 [facility] Absolute lymphocyte counton 04-03-2021 Lymphocytes Auto (Unsp spec) [#/Vol] 1.58 10*3/uL 0.83-4.51 [facility] Work Phone: Basophil percentageon 2021 Basophil percentage 10-25 SEEN /hpf [facility] Work Phone: Basophils/100 WBC (Bld) 0.3 % 0-1 [facility] Work Phone: Bilirubin [Mass/Vol] 0.70 mg/dL 0.20-1.00 [facility] Work Phone: Comment on above: For patients on eltr ombopag therapy, use of Dimension Taylor TBIL is not recommended. Chloride [Moles/Vol] 100 mmol/L 98-107 [facility] Work Phone: Eosinophils/100 WBC (Bld) 0.6 % 0-5 [facility] Work Phone: Glucose [Mass/Vol] 110 mg/dL 74-106 [facility] Work Phone: Comment on above: Fasting Glucose resu lt from 100 to 125 mg/dL suggests IMPAIRED HOMEOSTASIS per A.D.A. criteria. Neutrophils (Bld) [#/Vol] 4.1 10*3/uL 2.0-7.7 [facility] Work Phone: Neutrophils/100 WBC (Bld) 64.9 % 47-70 [facility] Work Phone: Potassium [Moles/Vol] 3.0 mmol/L 3.5-5.1 [facility] Work Phone: Protein [Mass/Vol] 5.8 g/dL 6.4-8.2 [facility] Work Phone: Sodium [Moles/Vol] 136 mmol/L 136-145 [facility] Work Phone: WBC (Bld) [#/Vol] 6.3 10*3/uL 4.4-11.0 [facility] Work Phone: Bilirubin Test strip Ql (U)o n 04-03-2021 Bilirubin Ql (U) Negative Negative [facility] Work Phone: Blood erythrocytes count (nu mber/volume)on 04-03-2021 RBC (Bld) [#/Vol] 4.55 10*6/uL 4.2-5.4 [facility] Work Phone: Blood hemoglobin measurement (mass/volume)on 04-03-2021 Hemoglobin (Bld) [Mass/Vol] 13.1 g/dL 12.0-15.0 [facility] Work Phone: Blood lymphocytes/100 leukoc yteson 04-03-2021 Lymphocytes/100 WBC (Bld) 25.1 % 19-41 [facility] Work Phone: Blood monocytes/100 leukocyt eson 04-03-2021 Monocytes/100 WBC (Bld) 8.1 % 0-10 [facility] Work Phone: Blood platelet mean volumeon 04-03-2021 Platelet mean volume (Bld) [Entitic vol] 10.2 fL 6.2-12.0 [facility] Work Phone: Determination of erythrocyte mean corpuscular volume (MCV)on 04-03-2021 MCV (RBC) [Entitic vol] 86.6 fL 81-99 [facility] Work Phone: Hematocrit Auto (Bld) [Volum e fraction]on 04-03-2021 Hematocrit (Bld) [Volume fraction] 39.4 % 37-47 [facility] Work Phone: Ketones Test strip Ql (U)on 04-03-2021 Ketones Ql (U) 5 mg/dl Negative [facility] Work Phone: Laboratory - Chemistry and C hemistry - challengeon 04-03-2021 ALP [Catalytic activity/Vol] 100 U/L 45-117 [facility] Work Phone: ALT [Catalytic activity/Vol] 22 U/L 13-56 [facility] Work Phone: CO2 [Moles/Vol] 29.0 mmol/L 21.0-32.0 [facility] Work Phone: Globulin (S) [Mass/Vol] 2.9 g/dL 2.2-4.2 [facility] Work Phone: Urea nitrogen/Creatinine [Mass ratio] 23.8 mg/mg 10-20 [facility] Work Phone: Laboratory - Hematology and Cell countson 04-03-2021 Erythrocyte distribution width (RBC) [Entitic vol] 51.4 fL 35.1-43.9 [facility] Work Phone: Erythrocyte distribution width (RBC) [Ratio] 16.3 % 11.6-14.6 [facility] Work Phone: Immature granulocytes/100 WBC (Bld) 1.000 % 0.0-0.9 [facility] Work Phone: Comment on above: IG% - Immature Granu locytes (promyelocytes, myelocytes and metamyelocytes) > 1% indicates that a LEFT SHIFT is Present. MCH (RBC) [Entitic mass] 28.8 pg 27.0-32.0 [facility] Work Phone: Nucleated RBC/100 WBC (Bld) [Ratio] 0 % 0-5 [facility] Work Phone: MCHC Auto (RBC) [Mass/Vol]on 04-03-2021 MCHC (RBC) [Mass/Vol] 33.2 g/dL 32-36 [facility] Work Phone: Mucus LM Ql (Urine sed)on Mucus Ql (Urine sed) 0 SEEN /hpf [facility] Work Phone: Nitrite Test strip Ql (U)on 04-03-2021 Nitrite Ql (U) Positive Negative [facility] Work Phone: No Panel Informationon 04-03 Estimated Creatinine Clearance Calc 46.40 ml/min [facility] Work Phone: Estimated GFR (MDRD) Amer 89 mL/min >60 [facility] Work Phone: Comment on above: GFR Calc Estimated GFR (MDRD) Non-Af Amer 74 mL/min >60 [facility] Work Phone: Comment on above: Non- GFR Calc Platelets bldon 04-03-2021 Platelets (Bld) [#/Vol] 188 10*3/uL 150-450 [facility] Work Phone: Protein Test strip Ql (U)on 04-03-2021 Protein Ql (U) 30 mg/dl Negative [facility] Work Phone: Serum or plasma albumin hailey urement (mass/volume)on 04-03-2021 Albumin [Mass/Vol] 2.9 g/dL 3.2-5.0 [facility] Work Phone: Serum or plasma albumin/glob ulin mass ratioon 04-03-2021 Albumin/Globulin [Mass ratio] 1.0 {ratio} 0.9-2.4 [facility] Work Phone: Serum or plasma calcium hailey urement (mass/volume)on 04-03-2021 Calcium [Mass/Vol] 9.1 mg/dL 8.5-10.1 [facility] Work Phone: Serum or plasma creatinine m easurement (mass/volume)on 04-03-2021 Creatinine [Mass/Vol] 0.80 mg/dL 0.55-1.02 [facility] Work Phone: Comment on above: The validity of the calculated GFR & GFRAA in patients over 70 years has not been determined. Clinical correlation is essential. Serum or plasma urea nitroge n measurement (mass/volume)on 04-03-2021 Urea nitrogen [Mass/Vol] 19 mg/dL 7-18 [facility] Work Phone: Squamous epithelial cells de tection in urine sediment by light microscopyon 04-03-2021 Epithelial cells.squamous LM Ql (Urine sed) 0-5 SEEN /hpf [facility] Work Phone: Thin prep Papanicolaou smear with manual screeningon 04-03-2021 Thin prep Papanicolaou smear with manual screening 22 U/L 15-37 [facility] Work Phone: Thin prep Papanicolaou smear with manual screening 7 5-15 [facility] Work Phone: Urine blood detectionon 02 RBC Ql (U) 50 /ul Negative [facility] Work Phone: RBC Ql (U) 0-5 SEEN /hpf [facility] Work Phone: Urine clarityon 04-03-2021 Clarity (U) Cloudy Clear [facility] Work Phone: Urine color determinationon 04-03-2021 Color (U) Yellow Yellow [facility] Work Phone: Urine glucose detectionon Glucose Ql (U) Normal mg/dl Normal [facility] Work Phone: Urine leukocyte esterase det ection by dipstickon 04-03-2021 Leukocyte esterase Test strip Ql (U) 500 /ul Negative [facility] Work Phone: Urine pHon 04-03-2021 pH (U) 5.0 [pH] [facility] Work Phone: Urine sediment bacteria coun t by microscopy (number/high power field)on 04-03-2021 Bacteria LM.HPF (Urine sed) [#/Area] 3 /[HPF] None Seen [facility] Work Phone: Urine specific gravity measu rementon 04-03-2021 Specific gravity (U) [Rel density] 1.025 [facility] Work Phone: Urobilinogen Auto test strip Ql (U)on 04-03-2021 Urobilinogen Ql (U) 1 mg/dl Normal [facility] Work Phone: Basophil percentageon 2020 Chloride [Moles/Vol] 103 mmol/L 98-[address] [facility] Work Phone: Cholesterol [Mass/Vol] 130 mg/dL <200 elva [facility] Work Phone: Comment on above: <200 mg/dL Desirable 200-240 mg/dL Borderline >240 mg/dL High Risk Glucose [Mass/Vol] 100 mg/dL 74-106 [facility] Work Phone: Comment on above: Fasting Glucose resu lt from 100 to 125 mg/dL suggests IMPAIRED HOMEOSTASIS per A.D.A. criteria.Please note revised GLUCOSE reference range effective 2017. Potassium [Moles/Vol] 3.7 mmol/L 3.5-5.1 [facility] Work Phone: Sodium [Moles/Vol] 138 mmol/L 136-145 [facility] Work Phone: Triglyceride [Mass/Vol] 93 mg/dL [facility] Work Phone: Comment on above: The drugs N-Acetylcy steine and Metamizole may falsely depress this assay.Serum Triglycerides Reference Interval Normal <150 mg/dL Borderline high 150 - 199 mg/dL High 200 - 499 mg/dL Very High > or = 500 mg/dL Laboratory - Chemistry and C hemistry - challengeon 02-16-2021 ALT [Catalytic activity/Vol] 35 U/L 13-56 [facility] Work Phone: CO2 [Moles/Vol] 27.0 mmol/L 21.0-32.0 [facility] Work Phone: Urea nitrogen/Creatinine [Mass ratio] 19.4 mg/mg 10-20 [facility] Work Phone: No Panel Informationon 02-16 Estimated GFR (MDRD) Amer 80 mL/min >60 [facility] Work Phone: Comment on above: GFR Calc Estimated GFR (MDRD) Non-Af Amer 66 mL/min >60 [facility] Work Phone: Comment on above: Non- GFR Calc Serum or plasma calcium hailey urement (mass/volume)on 02-16-2021 Calcium [Mass/Vol] 10.0 mg/dL 8.5-10.1 [facility] Work Phone: Serum or plasma cholesterol in HDL measurement (mass/volume)on 02-16-2021 Cholesterol in HDL [Mass/Vol] 60 mg/dL [facility] Work Phone: Comment on above: The drugs N-Acetylcy steine and Metamizole may falsely depress this assay. Reference Range HDL <40 mg/dL Low HDL Cholesterol HDL >or= 60 mg/dL High HDL Cholesterol Serum or plasma cholesterol in VLDL measurement (mass/volume)on 02-16-2021 Cholesterol in VLDL [Mass/Vol] 19 mg/dL 5-40 [facility] Work Phone: Serum or plasma creatinine m easurement (mass/volume)on 02-16-2021 Creatinine [Mass/Vol] 0.88 mg/dL 0.55-1.02 [facility] Work Phone: Comment on above: The validity of the calculated GFR & GFRAA in patients over 70 years has not been determined. Clinical correlation is essential. Serum or plasma low density lipoprotein (LDL) cholesterol measurement (mass/volume)on 02-16-2021 Cholesterol in LDL [Mass/Vol] 51 mg/dL 0-130 [facility] Work Phone: Serum or plasma urea nitroge n measurement (mass/volume)on 02-16-2021 Urea nitrogen [Mass/Vol] 17 mg/dL 7-18 [facility] Work Phone: Thin prep Papanicolaou smear with manual screeningon 02-16-2021 Thin prep Papanicolaou smear with manual screening 34 U/L 15-37 [facility] Work Phone: Thin prep Papanicolaou smear with manual screening 8 5-15 [facility] Work Phone: Dermatopathologyon 7 Dermatopathology Pathologist: LINDA HOWARDate of Procedure: 11/21/2016Date Received: 11/22/2016Date Reported 11/25/2016Submitting Physician: SELVIN MUSTAFA MDLocation: ADERM FINAL DIAGNOSISSKIN, RIGHT UPPER ANT GARCIA, SHAVE BIOPSY:INFLAMED MODERATELY DYSPLASTIC JUNCTIONAL NEVUS, INKED MARGINS FREE IN PLANESOF SECTIONS EXAMINED. Electronically Signed Out by NIDA PEREIRA M.D. Electronically SignedOut By NIDA PEREIRA MD/[facility] Microscopic Description:Microsco pic analysis shows an asymmetric proliferation of melanocytes, withlentiginous hyperplasia of epidermis. In addition to melanocytes that nestirregularly along the dermal-epidermal junction, other features of dysplasiainclude melanocyte bridging, papillary dermal fibroplasia, melanophages, andinflammatory cells in papillary dermis. The melanocytes show random cytologicatypia.Clin ical History:R/O DPN. Shave biopsy. ([facility]) Specimens Submitted As:A: SKIN, RIGHT UPPER ANT GARCIA Gross Description:Received in formalin is one montilla-brown piece of skin measuring 7 x 7 x 1 mm. Inked and embedded in toto.mlz/11/22/2016 Normal [facility] Comment on above: Performed By: #### D ####Dermatopathology Vital Signs Date Time Vital Sign Value Performing Clinician Faci lity 10-29-2024 12:58-0400 Body height 160.[address] Carlie Renner MD Work Phone: [facility] 10-29-2024 12:58-0400 Body mass index (BMI) [Ratio] 32.8 kg/m2 Dr. Carlie Renner MD Work Phone: [facility] 10-29-2024 12:58-0400 Body temperature 97.2 [degF] Dr. Carlie Renner MD Work Phone: [facility] 10-29-2024 12:58-0400 Body weight 83.[address] Carlie Renner MD Work Phone: [facility] 10-29-2024 12:58-0400 Diastolic blood pressure 66 mm[Hg] Dr. Carlie Renner MD Work Phone: [facility] 10-29-2024 12:58-0400 Heart rate 63 /min Dr. Carlie Renner MD Work Phone: [facility] 10-29-2024 12:58-0400 Respiratory rate 16 /min Dr. Carlie Renner MD Work Phone: [facility] 10-29-2024 12:58-0400 SaO2% (BldA) [Mass fraction] 97 % Dr. Carlie Renner MD Work Phone: [facility] 10-29-2024 12:58-0400 Systolic blood pressure 120 mm[Hg] Dr. Carlie Renner MD Work Phone: [facility] 07-20-2024 20:22-0400 Body temperature 97.6 [degF] Dr. Carlie Renner MD Work Phone: [facility] 07-20-2024 20:22-0400 Diastolic blood pressure 76 mm[Hg] Dr. Carlie Renner MD Work Phone: [facility] 07-20-2024 20:22-0400 Heart rate 81 /min Dr. Carlie Renner MD Work Phone: [facility] 07-20-2024 20:22-0400 Respiratory rate 14 /min Dr. Carlie Renner MD Work Phone: [facility] 07-20-2024 20:22-0400 SaO2% (BldA) [Mass fraction] 100 % Dr. Carlie Renner MD Work Phone: [facility] 07-20-2024 20:22-0400 Systolic blood pressure 118 mm[Hg] Dr. Carlie Renner MD Work Phone: [facility] 07-20-2024 18:41-0400 Body height 160.[address] Carlie Renner MD Work Phone: [facility] 06-07-2021 12:14-0400 Body temperature 97.4 [degF] Dr. Carlie Renner Work Phone: [facility] Work Phone: 06-07-2021 12:14-0400 Diastolic blood pressure 81 mm[Hg] Dr. Carlie Renner Work Phone: [facility] Work Phone: 06-07-2021 12:14-0400 Heart rate 85 /min Dr. Carlie Renner Work Phone: [facility] Work Phone: 06-07-2021 12:14-0400 Respiratory rate 16 /min Dr. Carlie Renner Work Phone: [facility] Work Phone: 06-07-2021 12:14-0400 SaO2% (BldA) [Mass fraction] 97 % Dr. Carlie Renner Work Phone: [facility] Work Phone: 06-07-2021 12:14-0400 Systolic blood pressure 125 mm[Hg] Dr. Carlie Renner Work Phone: [facility] Work Phone: 06-07-2021 10:36-0400 Body height 160.[address] Carlie eRnner Work Phone: [facility] Work Phone: 06-07-2021 10:36-0400 Body mass index (BMI) [Ratio] 33.5 kg/m2 Dr. Carlie Renner Work Phone: [facility] Work Phone: 06-07-2021 10:36-0400 Body weight [address] Carlie Renner Work Phone: [facility] Work Phone: 04-03-2021 17:47-0500 Diastolic blood pressure 76 mm[Hg] Dr. Carlie Renner Work Phone: [facility] Work Phone: 04-03-2021 17:47-0500 Heart rate 96 /min Dr. Carlie Renner Work Phone: [facility] Work Phone: 04-03-2021 17:47-0500 Respiratory rate 15 /min Dr. Carlie Renner Work Phone: [facility] Work Phone: 04-03-2021 17:47-0500 SaO2% (BldA) [Mass fraction] 97 % Dr. Carlie Renner Work Phone: [facility] Work Phone: 04-03-2021 17:47-0500 Systolic blood pressure 130 mm[Hg] Dr. Carlie Renner Work Phone: [facility] Work Phone: 04-03-2021 10:52-0500 Body mass index (BMI) [Ratio] 33.6 kg/m2 Dr. Carlie Renner Work Phone: [facility] Work Phone: 04-03-2021 10:52-0500 Body temperature 97.1 [degF] Dr. Carlie Renner Work Phone: [facility] Work Phone: 04-03-2021 10:52-0500 Body weight 86.[address] Carlie Renner Work Phone: [facility] Work Phone: Encounters Encounter Date Encounter Type Care Provider Facility Start: 10-29-2024 End: 10-29-[address] Carlie Renner MD Work Phone: -[facility] Start: 10-29-2024 End: 10-29-[address] Anni Drummond MD -[facility] Work Phone: Start: 10-29-2024 End: 10-29-[address] Anni Drummond MD -[place] [facility] Work Phone: Start: 10-29-2024 End: 10-29-[address] Anni Drummond MD [facility] Start: 10-29-2024 End: 10-29-[address] Carlie Renner MD Work Phone: -[place] [facility] Start: 10-29-2024 End: 10-29-2024 ambulatory Anni Drummond Facility:[facility] Start: 07-20-2024 End: 07-20-2024 Emergency department patient visit Dr. Carlie Renner MD Work Phone: -Emergency Department Work Phone: Start: 09-17-2022 End: 09-17-2022 ambulatory [facility] Work Phone: Start: 09-17-2022 End: 09-17-2022 Patient encounter procedure [facility] Start: 03-20-2022 End: 03-20-2022 ambulatory [facility] Work Phone: Start: 03-20-2022 End: 03-20-2022 Patient encounter procedure [facility] Start: 06-21-2021 End: 06-21-[address] Carlie Renner Work Phone: [facility] Start: 06-07-2021 Non-patient / Non-visit Dr. Carlie Renner Work Phone: [facility] Start: 06-07-2021 End: 06-07-2021 Admission to same day surgery center Dr. Carlie Renner Work Phone: [facility]Endoscopy Start: 04-18-2021 End: 04-18-[address] Carlie Renner Work Phone: [facility] Start: 04-03-2021 End: 04-03-2021 Emergency department patient visit Dr. Carlie Renner Work Phone: [facility]-Emergency Department Start: 04-03-[address] Carlie heath Work Phone: [facility]-Physical Therapy Start: 03-28-2021 End: 03-28-[address] Carlie Renner Work Phone: [facility]Radiology, [place] Start: 03-21-[address] Carlie heath Work Phone: [facility]Massage Therapy, [facility] Start: 02-16-[address] Carlie Renner Work Phone: [facility] Start: 11-21-2016 Ambulatory Selvin Mustafa [...] Date Care Activity Detail Author Start: 07-20-2024 [facility] Start: 06-07-2021 Colonoscopy w/biopsy single/multiple COLONOSCOPY AND BIOPSY [facility] Work Phone: Start: 06-07-2021 Colsc flx w/rmvl of tumor polyp lesion snare tq COLONOSCOPY W/LESION REMOVAL [facility] Work Phone: Start: 06-07-2021 Patient discharge [facility] Work Phone: CBC W Auto Different ial panel - Blood [facility] Comprehensive metabo lic 1999 panel - Serum or Plasma [facility] Lipid 1996 panel - S lavonne or Plasma [facility] Patient Education [facility] Work Phone: Patient referral [facility] Work Phone: T4 free measurement [facility] Thyroid stimulating hormone measurement [facility] Immunizations Immunization Date Immunization Notes Care Provider Filomena solares 12-22-2017 tetanus toxoid, redu sheree diphtheria toxoid, and acellular pertussis vaccine, adsorbed Dr. Carlie Renner Work Phone: [facility] Payers Date Payer Category Payer Self-pay [id number] 2005 Medicare [id number] 2005 Private Health Insurance [id number] Medicare [id number] Unknown [id number] Unknown [id number] Unknown [id number] Social History Date Type Detail Facility Start: 06-06-2021 End: 06-21-2021 Tobacco smoking status KYIS Unknown if ever smoked [facility] Start: 1940 Sex Assigned At Female [facility] Start: 07-20-2024 Tobacco smoking stat us NHIS Never smoked tobacco (finding) [facility] Goals Date Patient Goal Desired Activity /State Mental Status Date Assessment Result Facility 07-20-2024 Cognitive function Level Of Cons ciousness Awake;Alert;Appropriate [facility] Work Phone: 06-07-2021 Cognitive function Voice/Name [facility] Work Phone: Evaluation note 10-29-2024 Note Date & Type Note Facility 10-29-2024 Evaluation note Diagnosis Onset Date Resolution Health care maintenance acute A ugust 2024 12:48pm Asthma chronic October 29 025 12:48pm Debility chronic October 29 025 12:48pm Hypertension chronic October 29, 2024 12:48pm Dementia suspected October 29, 2 025 12:48pm [facility] Work Phone: Evaluation note Note Date & Type Note Facility Evaluation note Diagnosis Onset Date Abnormal CT scan, gastrointestinal tract acute [facility] Work Phone: Evaluation note Note Date & Type Note Facility Evaluation note Diagnosis Onset Date Abnormal CT scan, gastrointestinal tract acute Solitary rectal ulcer syndrome acute [facility] Work Phone: Evaluation note Note Date & Type Note Facility Evaluation note No assessment information availa ble [facility] Work Phone: Hospital Discharge instructions Note Date & Type Note Facility Hospital Discharge instructions Additional Instructions Symptoms resolved. If you develop any respiratory distress, return to ED for reevaluation. [facility] Work Phone: Reason for referral (narrative) Note Date & Type Note Facility Reason for referral (narrative) No reason for referral information available [facility] Work Phone: Summary Purpose Family History No Family History Records Found Relationship Condition Age at Onset Recorded Date/T jyoti mother Cardiac disease Unknown daughter Malignant neoplasm of cervix Unknown Advance Directives No Advanced Directives Records Found Advance Directive Response Recorded Date/ Time Living Will Yes June 06, 2021 8:09am Power of Lab Rep Yes June 06 8:09am Advance Directive Response Recorded Date/ Time Name of Medical Power of Lab Rep ester Augustin June 06, 2021 8:09am Living Will Yes June 06, 2021 8:09am Power of Lab Rep Yes June 06 8:09am Advance Directive Response Recorded Date/ Time Living Will Yes June 06, 2021 7:09am Power of Lab Rep Yes June 06 7:09am Advance Directive Response Recorded Date/ Time Do you have a Healthcare Power of Lab Rep? Yes July 20, 2024 7:17pm Chief Complaint [...] DATE CREATED AUTHOR AUTHOR'S ORGANIZ ATION 11/04/2024 [facility] Goals (unrecognized section [...] BE BASED ON THE PRIMARY CLINICAL RECORDS. [facility] [employer], [facility]. provides no warranty or guarantee of the accuracy or completeness of information in this document.
[2025-01-30 11:45] LABS: Color, Urine Yellow (Yellow); Glucose, Dipstick Normal (Normal); Ketone-Dipstick 5 mg/dl (Negative); Leukocyte Esterase-Dipstick 500 /ul (Negative); Nitrite-Dipstick Positive (Negative); Occult Blood-Urine 10 /ul (Negative); Protein-Dipstick 30 mg/dl (Negative); Specific Gravity, Urine 1.015 (1.002-1.030); Urine Bilirubin Dipstick Negative (Negative)
[2025-01-30 11:57] LABS: Red Blood Cells-Urine 0-5 SEEN /hpf (0-5); Squamous Epithelial Cells - UA 0-5 SEEN /hpf (5-10)
--- NOTE | 2025-01-30 12:15 | CASEMGMT ---
Care Management Face to Face with patient for initial transition planning/care coordination assessment in the ED.? This commercial real estate underwriter introduced self and role at [facility]. Patient slept through much of the assessment. ?Patient unable to participate in assessment. Patient?s daughter, Jannet was present and was able to answer all questions appropriately.? Care providers, pharmacy, and demographics verified. Admitting Diagnosis: UTI, Acute delirium, leukocytosis and debility Other diagnosis history: Including but not limited to: Hypertension, back pain, difficulty swallowing, dementia, anxiety, depression, cancer, arthritis, spinal stenosis, degenerative disc disease, asthma and hyperlipidemia. PCP: Dr. Drummond Specialists: None Preferred Pharmacy: [facility]. Insurance: Medicare Part A and B Prescription Benefit: Yes, [employer] Living Will/HPOA: Yes. [employer] Construction Worker made copies for patient?s electronic medical record. LNOK: Patient is and her 3 children; daughter Jannet, of [place], son Parth, of [place] and son Toy of [place] (patient nor siblings have any current contact with Toy who is stated to not be involved at this time). Living Arrangements: Patient and her daughter Jannet live together in a 2-story house. Patient has a first-floor bedroom and bathroom. There are 2 steps leading in/out of the garage which patient us unable to ambulate at this time. Jannet moved in with patient roughly 2 years ago in what was described as ?hoarding conditions? which are still prominent. Jannet stated there are clear walkways/pathways for member to get around in her wheelchair, however Jannet stated the hoarding does create ?environmental issues?. ? Transportation: Patient does not drive. Jannet used to provide transportation however reported she no longer feels safe transporting patient alone. At times, patient?s son Parth can assist. DME: Wheelchair, wheelchair ramp, hearing aids, hospital bed, BSC, HHS, grab bars by toilet and by shower and a quad cane (patient is unable to use at this time). HHC: Denied history of. SNF/Rehab: Denied history of. Community Resources: Denied. Behavioral Health History: Denied. Patient goals: Patient unable to state wants and needs at this time. Patient?s daughter was very tearful throughout the assessment and indicated she is no longer able to care for patient as patient?s needs are too great. Patient has been accepted to [facility] however Jannet stated patient has not been able to move in because the office of the PCP won?t submit the plan of care paperwork. Jannet is requesting assistance with obtaining this so patient can be discharged to [facility] when medically ready. Disposition Plan: Admission to acute; RN CM/SW to follow for discharge planning needs that may arise. Due to possible hoarding conditions in the home, referral to Adult Protective services may be indicated in the event patient might have to return home. Bernadine Weller, TUMBLER TENDER, MINI SHIFTER
--- NOTE | 2025-01-30 12:24 | EKG12_ITS ---
Test Reason : Blood Pressure : */* mmHG Vent. Rate : 88 BPM Atrial Rate : * BPM P-R Int : * ms QRS Dur : 78 ms QT Int : 376 ms P-R-T Axes : * 16 56 degrees QTcB Int : 454 ms Atrial fibrillation Low voltage QRS Abnormal ECG Confirmed by Mateus Hall ([id number]), development editor JOHANNA AVERY ([id number]) on 01/31/2025 8:33:32 AM Referred By: Confirmed By: Mateus Hall
[2025-01-30] MEDS: 0.9% Normal Saline (1000mL) 1,000 ML 999 ML IV (12:33)
--- NOTE | 2025-01-30 12:35 | RAD_ITS ---
PROCEDURE: CHEST 1 VIEW (PORTABLE) 01/30/2025 REASON FOR EXAM: COUGH TECHNIQUE: Frontal view of the chest. COMPARISON: January 16, 2025 FINDINGS: There is no focal consolidation, pneumothorax, or pleural effusion. There is scarring and/or subsegmental atelectasis in the retrocardiac region. Cardiomediastinal silhouette is similar in appearance. No acute osseous abnormality. RAD/Chest 1 View (Portable) IMPRESSION: Similar to the previous study with mild chronic changes but no acute process. Reading [facility]
[2025-01-30 12:37] LABS: Hematocrit 47.0 % (37-47); Hemoglobin 15.3 g/dL (12.0-15.0); Immature Granulocytes Count 0.280 X10^3/uL (0.0-0.0); Mean Corp Hgb Conc 32.6 g/dL (32-36); Mean Corpuscular Volume 89.2 fL (81-99); Mean Platelet Vol. 10.5 fl (6.2-12.0); NRBC Flagged by Analyzer 0 % (0-5); Platelet Count 355 K/mm3 (150-450); RBC Distribution Width CV 13.6 % (11.6-14.6); RBC Distribution Width SD 44.2 fl (35.1-43.9); Red Blood Count 5.27 M/mm3 (4.2-5.4); White Blood Count 13.4 K/mm3 (4.4-11.0)
[2025-01-30 12:47] LABS: Prothrombin Time (Protime)PT. 15.4 SECONDS (11.7-14.9)
[2025-01-30 12:57] LABS: Partial Thromboplast Time 27.5 Seconds (24.1-36.2)
--- OUTSIDE RECORDS SUMMARY | 2025-01-30 13:50 | XMS RPT_ITS | CCD ---
Author Organization [facility] [employer] Care Team Providers Care [employer] Name Role Phone Selvin Mustafa Unavailable Unavailable SkippersSelvin garcia Unavailable Unavailable *SELF, REFERRED Unavailable Unavailable Carlie Renner Unavailable Unavailable Honda, Yvonned Shuji Unavailable Unavailable Selvin Mustafa Unavailable Unavailable Carlie Renner Unavailable Unavailable Dr. Carlie Renner Primary Care Provider Dr. Carlie Renner Referring Provider [phone] Martin Attending Provider [phone] Mario Booth Other Provider Dr. Carlie [...] 10-29-2024 Anion gap [Moles/Vol] 14 mmol/L 5-15 [facility] Automated lymphocyte count a s percentage of total leukocytesOrdered By: Anni Drummond on 10-29-2024 Lymphocytes/100 WBC Auto (Unsp spec) 19.7 % 19-41 [facility] BUN/creatinine ratioOrdered By: Michellechicagorene Drummond on 10-29-2024 Urea nitrogen/Creatinine [Mass ratio] 15.1 mg/mg 10-20 [facility] Basophil percentageOrdered B y: Anni Drummond on 10-29-2024 Basophils/100 WBC (Bld) 0.3 % 0-1 [facility] Bilirubin, totalOrdered By: Anni Drummond on 10-29-2024 Bilirubin [Mass/Vol] 0.61 mg/dL 0.00-1.30 [facility] CBC W/Diff, Automatedon 10-02 Absolute Lymph 1.76 X10 3/uL Normal 0.83-4.51 [facility] Comment on above: Performed By: #### L 501.9520, L100.0100, L500.4100, L500.4050, L506.0400 #### [facility] [address] [place], [address] Absolute Neut 6.5 X10 3/uL Normal 2.0-7.7 [facility] Comment on above: Performed By: #### L 501.9520, L100.0100, L500.4100, L500.4050, L506.0400 #### [facility] [address] [place], [address] Basophils/100 WBC (Bld) 0.3 % Normal 0-1 [facility] Comment on above: Performed By: #### L 501.9520, L100.0100, L500.4100, L500.4050, L506.0400 #### [facility] [address] [place], [address] Eosinophils/100 WBC (Bld) 1.0 % Normal 0-5 [facility] Comment on above: Performed By: #### L 501.9520, L100.0100, L500.4100, L500.4050, L506.0400 #### [facility] [address] [place], [address] Erythrocyte distribution width (RBC) [Ratio] 13.3 % Normal 11.6-14.6 [facility] Comment on above: Performed By: #### L 501.9520, L100.0100, L500.4100, L500.4050, L506.0400 #### [facility] [address] [place], [address] Hematocrit (Bld) [Volume fraction] 47.5 % High 37-47 [facility] Comment on above: Performed By: #### L 501.9520, L100.0100, L500.4100, L500.4050, L506.0400 #### [facility] [address] [place], [address] Hemoglobin (Bld) [Mass/Vol] 15.2 g/dL High 12.0-15.0 [facility] Comment on above: Performed By: #### L 501.9520, L100.0100, L500.4100, L500.4050, L506.0400 #### [facility] [address] [place], [address] IG% 0.200 Normal 0.0-0.9 [facility] Comment on above: Result Comment: IG% - Immature Granulocytes (promyelocytes, myelocytes and metamyelocytes) > 1% indicates that a LEFT SHIFT is Present. Performed By: #### L 501.9520, L100.0100, L500.4100, L500.4050, L506.0400 #### [facility] [address] [place], [address] Lymphocytes/100 WBC (Bld) 19.7 % Normal 19-41 [facility] Comment on above: Performed By: #### L 501.9520, L100.0100, L500.4100, L500.4050, L506.0400 #### [facility] [address] [place], [address] MCH (RBC) [Entitic mass] 29.6 pg Normal 27.0-32.0 [facility] Comment on above: Performed By: #### L 501.9520, L100.0100, L500.4100, L500.4050, L506.0400 #### [facility] [address] [place], [address] MCHC (RBC) [Mass/Vol] 32.0 g/dL Normal 32-36 [facility] Comment on above: Performed By: #### L 501.9520, L100.0100, L500.4100, L500.4050, L506.0400 #### [facility] [address] [place], [address] MCV (RBC) [Entitic vol] 92.4 fL Normal 81-99 [facility] Comment on above: Performed By: #### L 501.9520, L100.0100, L500.4100, L500.4050, L506.0400 #### [facility] [address] [place], [address] Monocytes/100 WBC (Bld) 6.5 % Normal 0-10 [facility] Comment on above: Performed By: #### L 501.9520, L100.0100, L500.4100, L500.4050, L506.0400 #### [facility] [address] [place], [address] Neutrophils/100 WBC (Bld) 72.3 % High 47-70 [facility] Comment on above: Performed By: #### L 501.9520, L100.0100, L500.4100, L500.4050, L506.0400 #### [facility] [address] [place], [address] Nucleated RBC (Bld) [#/Vol] 0 10*3/uL Normal 0-5 [facility] Comment on above: Performed By: #### L 501.9520, L100.0100, L500.4100, L500.4050, L506.0400 #### [facility] [address] [place], [address] Platelet mean volume (Bld) [Entitic vol] 12.0 fL Normal 6.2-12.0 [facility] Comment on above: Performed By: #### L 501.9520, L100.0100, L500.4100, L500.4050, L506.0400 #### [facility] [address] [place], [address] Platelets (Bld) [#/Vol] 203 10*3/uL Normal 150-450 [facility] Comment on above: Performed By: #### L 501.9520, L100.0100, L500.4100, L500.4050, L506.0400 #### [facility] [address] [place], [address] RBC (Bld) [#/Vol] 5.14 10*6/uL Normal 4.2-5.4 [facility] Comment on above: Performed By: #### L 501.9520, L100.0100, L500.4100, L500.4050, L506.0400 #### [facility] [address] [place], [address] RDW SD 45.8 fl High 35.1-43.9 [facility] Comment on above: Performed By: #### L 501.9520, L100.0100, L500.4100, L500.4050, L506.0400 #### [facility] [address] [place], [address] WBC (Bld) [#/Vol] 8.9 10*3/uL Normal 4.4-11.0 [facility] Comment on above: Performed By: #### L 501.9520, L100.0100, L500.4100, L500.4050, L506.0400 #### [facility] [address] [place], [address] Calculated very low density lipoprotein (VLDL) cholesterol measurementOrdered By: Anni Drummond on 10-29-2024 Calculated very low density lipoprotein (VLDL) cholesterol measurement 18 mg/dL 5-40 [facility] Carbon dioxide, total [Moles /volume] in Central venous bloodOrdered By: Anni Drummond on 10-29-2024 CO2 [Moles/Vol] 25.0 mmol/L 21.0-32.0 [facility] Chloride assayOrdered By: Juani monique Robertmarni on 10-29-2024 Chloride [Moles/Vol] 101 mmol/L 98-108 [facility] Comprehensive Metabolic Prof ilon 10-29-2024 Albumin [Mass/Vol] 4.1 g/dL Normal 3.4-4.8 [facility] Comment on above: Performed By: #### L 501.9520, L100.0100, L500.4100, L500.4050, L506.0400 #### [facility] [address] [place], [address] Albumin/Globulin [Mass ratio] 1.5 {ratio} Normal 0.9-2.4 [facility] Comment on above: Performed By: #### L 501.9520, L100.0100, L500.4100, L500.4050, L506.0400 #### [facility] [address] [place], [address] ALK PHOS 138 U/L High 35-104 [facility] Comment on above: Performed By: #### L 501.9520, L100.0100, L500.4100, L500.4050, L506.0400 #### [facility] [address] [place], [address] ALT [Catalytic activity/Vol] 21 U/L Normal <=34 [facility] Comment on above: Performed By: #### L 501.9520, L100.0100, L500.4100, L500.4050, L506.0400 #### [facility] [address] [place], [address] AST [Catalytic activity/Vol] 26 U/L Normal <=31 [facility] Comment on above: Result Comment: Hemo lysis present, Results??could be affected. ?? Performed By: #### L 501.9520, L100.0100, L500.4100, L500.4050, L506.0400 #### [facility] [address] [place], [address] Bilirubin [Mass/Vol] 0.61 mg/dL Normal 0.00-1.30 [facility] Comment on above: Performed By: #### L 501.9520, L100.0100, L500.4100, L500.4050, L506.0400 #### [facility] [address] [place], [address] BUN/CRE 15.1 RATIO Normal 10-20 [facility] Comment on above: Performed By: #### L 501.9520, L100.0100, L500.4100, L500.4050, L506.0400 #### [facility] [address] [place], [address] Calcium [Mass/Vol] 10.2 mg/dL Normal 7.6-11.0 [facility] Comment on above: Performed By: #### L 501.9520, L100.0100, L500.4100, L500.4050, L506.0400 #### [facility] [address] [place], [address] Chloride [Moles/Vol] 101 mmol/L Normal 98-108 [facility] Comment on above: Performed By: #### L 501.9520, L100.0100, L500.4100, L500.4050, L506.0400 #### [facility] [address] [place], [address] CO2 [Moles/Vol] 25.0 mmol/L Normal 21.0-32.0 [facility] Comment on above: Performed By: #### L 501.9520, L100.0100, L500.4100, L500.4050, L506.0400 #### [facility] [address] [place], [address] Creatinine [Mass/Vol] 0.99 mg/dL Normal 0.70-1.20 [facility] Comment on above: Performed By: #### L 501.9520, L100.0100, L500.4100, L500.4050, L506.0400 #### [facility] [address] [place], [address] GAP 14 Normal 5-15 [facility] Comment on above: Performed By: #### L 501.9520, L100.0100, L500.4100, L500.4050, L506.0400 #### [facility] [address] [place], [address] GFR/1.73 sq M.predicted among non-blacks MDRD (S/P/Bld) [Vol rate/Area] 56 mL/min/{1.73_m2} Low >60 [facility] Comment on above: Result Comment: mL/m in/1.73m2 CKD-EPI Creatinine Equation (2020) Performed By: #### L 501.9520, L100.0100, L500.4100, L500.4050, L506.0400 #### [facility] [address] [place], [address] Globulin (S) [Mass/Vol] 2.8 g/dL Normal 2.2-4.2 [facility] Comment on above: Performed By: #### L 501.9520, L100.0100, L500.4100, L500.4050, L506.0400 #### [facility] [address] [place], [address] Glucose [Mass/Vol] 104 mg/dL High 70-99 [facility] Comment on above: Performed By: #### L 501.9520, L100.0100, L500.4100, L500.4050, L506.0400 #### [facility] [address] [place], [address] Potassium [Moles/Vol] 4.6 mmol/L Normal 3.3-5.1 [facility] Comment on above: Result Comment: Hemo lysis present, Results??could be affected. ?? Performed By: #### L 501.9520, L100.0100, L500.4100, L500.4050, L506.0400 #### [facility] [address] [place], [address] Sodium [Moles/Vol] 140 mmol/L Normal 133-145 [facility] Comment on above: Performed By: #### L 501.9520, L100.0100, L500.4100, L500.4050, L506.0400 #### [facility] [address] [place], [address] T PROT 6.9 g/dL Normal 5.9-8.4 [facility] Comment on above: Performed By: #### L 501.9520, L100.0100, L500.4100, L500.4050, L506.0400 #### [facility] [address] [place], [address] Urea nitrogen [Mass/Vol] 15 mg/dL Normal 4-19 [facility] Comment on above: Performed By: #### L 501.9520, L100.0100, L500.4100, L500.4050, L506.0400 #### [facility] [address] [place], [address] Eosinophil percentageOrdered By: Anni Drummond on 10-29-2024 [...] Vis itorobinson 10-29-2024 Internal Medicine Office Visit [facility] [address] [place] [address] [place] [address] OFFICE VISIT Date of Service: 10/29/24 MR#: [id number] Acct: [id number] Name: ANTONI KULKARNI Rep #: [id number] : 1940 Provider: Dr. Anni horne MD Age/Sex: 84/F Location: [facility] Status: Signed Intake Vital Signs 07/20/24 18:41 [...] PT - HAS PPWK Chief Complaint: establishing [employer] Required: No Accompanied by: Daughter Is patient [...] the past year?: No Nurse's Note: establishing [facility] Medical History (Updated 10/29/24 @ 13:28 by [...] KULKARNI, is an 84-year-old female presenting to [facility]. No acute concerns at this time. The [...] to asbestos exposure during her employment at [employer]. She manages her asthma with the use [...] [facility] Comment on above: Rmqiqpnwsn=914-499 m g/dL & Higher Ivwn=651 mg/dL or greaterFriedwald Equation for LDL-C Laboratory [...] [facility] [address] [place], [address] Cholesterol [Mass/Vol] 141 mg/dL Normal <=200 [facility] Comment on above: Result Comment: Chol esterol level, Desirable <200 mg/dL Borderline high cholesterol 200-239 mg/dL High cholesterol >=240 mg/dL Recommendations of the NCEP Adult Treatment Panel for the following risk-cutoff thresholds for the [place] population. Performed By: #### L 501.9520, L100.0100, L500.4100, L500.4050, L506.0400 #### [facility] [address] [place], [address] Cholesterol in HDL [Mass/Vol] 67 mg/dL Normal [...] [facility] [address] [place], [address] Cholesterol in LDL [Mass/Vol] 56 mg/dL Normal [facility] Comment on above: Result Comment: Bord awmvfu=701-647 mg/dL Higher Nkny=556 mg/dL or greater Friedwald Equation for LDL-C Performed By: #### L 501.9520, L100.0100, L500.4100, L500.4050, L506.0400 #### [facility] [address] [place], [address] Cholesterol in VLDL [Mass/Vol] 18 mg/dL Normal 5-40 [facility] Comment on above: Performed By: #### L 501.9520, L100.0100, L500.4100, L500.4050, L506.0400 #### [facility] [address] [place], [address] Triglyceride [Mass/Vol] 91 mg/dL Normal [facility] Comment on above: Result Comment: The drugs N-Acetylcysteine and Metamizole may falsely depress this assay. Normal range: <150 mg/dL Borderline High: 150-199 mg/dL High: 200-499 mg/dL Very High: >500 mg/dL Performed By: #### L 501.9520, L100.0100, L500.4100, L500.4050, L506.0400 #### [facility] [address] [place], [address] MCV (mean corpuscular volume ) determinationOrdered By: Anni Drummond on 10-29-2024 MCV (RBC) [Entitic vol] 92.4 fL 81-99 [facility] Mean corpuscular hemoglobin (MCH) determinationOrdered By: Anni Drummond on 10-29-2024 MCH (RBC) [Entitic mass] 29.6 pg 27.0-32.0 [facility] Mean corpuscular hemoglobin concentration (MCHC) determinationOrdered By: Anni Drummond on 10-29-2024 MCHC (RBC) [Mass/Vol] 32.0 g/dL 32-36 [facility] Mean platelet volume determi nationOrdered By: Anni Drummond on 10-29-2024 Platelet mean volume (Bld) [Entitic vol] 12.0 fL 6.2-12.0 [facility] Monocyte percentageOrdered B y: Michelleyanetrene Drummond on 10-29-2024 Monocytes/100 WBC (Bld) 6.5 % 0-10 [facility] Neutrophil percentageOrdered By: Juanimonique Jonesaubreysid [...] 10-29-2024 RBC (Bld) [#/Vol] 5.14 10*6/uL 4.2-5.4 [facility] Screening total cholesterol/ high density lipoprotein (HDL) cholesterol ratioOrdered By: Anni Drummond on 10-29-2024 Cholesterol.total/Choles terol in HDL [Mass ratio] 2.10 {ratio} [facility] Serum creatinine measurement (mass/volume)Ordered By: Anni Drummond on 10-29-2024 Creatinine [Mass/Vol] 0.99 mg/dL 0.70-1.20 [facility] Serum globulin measurementOr dered By: Anni Drummond on 10-29-2024 Globulin (S) [Mass/Vol] 2.8 g/dL 2.2-4.2 [facility] Serum glucose measurement (m ass/volume)Ordered By: Anni Drummond on 10-29-2024 Glucose [Mass/Vol] 104 mg/dL High 70-99 [facility] Serum or plasma alanine rudd otransferase (ALT) measurementOrdered By: Huyrene Jonesaubreysid on 10-29-2024 ALT [Catalytic activity/Vol] 21 U/L <35 [facility] Serum or plasma albumin hailey urement (mass/volume)Ordered By: yanet Abdirahman10-29-2024 Albumin [Mass/Vol] 4.1 g/dL 3.4-4.8 [facility] Serum or plasma albumin/glob ulin mass ratioOrdered By: Robertaubrey on 10-29-2024 Albumin/Globulin [Mass ratio] 1.5 {ratio} 0.9-2.4 [facility] Serum or plasma alkaline vini sphatase measurementOrdered By: Robert10-29-2024 ALP [Catalytic activity/Vol] 138 U/L High 35-104 [facility] Serum or plasma calcium hailey urement (mass/volume)Ordered By: Abdirahman10-29-2024 Calcium [Mass/Vol] 10.2 mg/dL 7.6-11.0 [facility] Serum or plasma cholesterol in HDL [...] Robertaubreysid 10-29-2024 Cholesterol [Mass/Vol] 141 mg/dL <201 [facility] Comment on above: Cholesterol level, D esirable <200 mg/dLBorderline high cholesterol 200-239 mg/dLHigh cholesterol >=240 mg/dLRecommendations of the NCEP Adult Treatment Panel for the following risk-cutoff thresholds for the [place] population. Serum or plasma urea nitroge n measurement (mass/volume)Ordered By: Michelleongrene Drummond 5 Urea nitrogen [Mass/Vol] 15 mg/dL 4-19 [facility] Sodium levelOrdered By: Michelle Drummond on 10-29-2024 Sodium [Moles/Vol] 140 mmol/L 133-145 [facility] T4 Free Directon 10-29-2024 T4 FREE DIRECT 1.10 ng/dL Normal 0.76-1.46 [facility] Comment on above: Performed By: #### L 501.9520, L100.0100, L500.4100, L500.4050, L506.0400 #### [facility] [address] [place], [address] T4 freeOrdered By: Anni Robertmarni on 10-29-2024 Free T4 [Mass/Vol] 1.10 ng/dL 0.76-1.46 [facility] TSH DL <= 0.005 mIU/L QnOrde red By: Anni Drummond on 10-29-2024 TSH Qn 2.360 uIU/mL 0.300-4.200 [facility] Thyroid Stim Hormone (TSH)on 10-29-2024 TSH 2.360 uIU/mL Normal 0.300-4.200 [facility] Comment on above: Performed By: #### L 501.9520, L100.0100, L500.4100, L500.4050, L506.0400 #### [facility] [address] [place], [address] Total proteinOrdered By: Daniel Drummond on 10-29-2024 Protein [Mass/Vol] 6.9 g/dL 5.9-8.4 [facility] Triglycerides measurementOrd ered By: Anni Drummond on 10-29-2024 Triglyceride [Mass/Vol] 91 mg/dL <199 [facility] Comment on above: The drugs N-Acetylcy steine and Metamizole may falsely depress this assay. Normal range: <150 mg/dLBorderline High: 150-199 mg/dLHigh: 200-499 mg/dLVery High: >500 mg/dL White blood cell (WBC) count Ordered By: Anni Drummond on 10-29-2024 WBC (Bld) [#/Vol] 8.9 10*3/uL 4.4-11.0 [facility] Emergency Department Summary on 07-20-2024 Emergency Department Summary [facility] Medical Records Department [address] [place] [address] Emergency Department Summary 07/20/24 MR#: [id number] Acct: [id number] Name: ANTONI KULKARNI Rep #: [id number] : 1940 83 From: [facility] PCP: [...] of asthma. Currently denies any symptoms. [facility] Medical History Wears glasses Wears hearing aid [...] on 09-17-2022 Chloride [Moles/Vol] 104 mmol/L 98-107 [facility] Glucose [Mass/Vol] 99 mg/dL 74-106 [facility] Potassium [Moles/Vol] 4.2 mmol/L 3.5-5.1 [facility] Sodium [Moles/Vol] 139 mmol/L 136-145 [facility] Laboratory - Chemistry and C hemistry [...] on 09-17-2022 Calcium [Mass/Vol] 9.4 mg/dL 8.5-10.1 [facility] Serum or plasma creatinine m easurement (mass/volume)Ordered By: Carlie Renner on 09-17-2022 Creatinine [Mass/Vol] 0.84 mg/dL 0.55-1.02 [facility] Comment on above: The validity [...] on 03-20-2022 Chloride [Moles/Vol] 107 mmol/L 98-107 [facility] Cholesterol [Mass/Vol] 164 mg/dL <200 [facility] Comment on above: <200 mg/dL Desirable 200-240 mg/dL Borderline >240 mg/dL High Risk Glucose [Mass/Vol] 85 mg/dL 74-106 [facility] Potassium [Moles/Vol] 4.2 mmol/L 3.5-5.1 [facility] Sodium [Moles/Vol] 143 mmol/L 136-145 [facility] Triglyceride [Mass/Vol] 114 mg/dL <199 [facility] Comment on above: The drugs [...] on 03-20-2022 Calcium [Mass/Vol] 9.5 mg/dL 8.5-10.1 [facility] Serum or plasma cholesterol in HDL [...] on 03-20-2022 Creatinine [Mass/Vol] 0.73 mg/dL 0.55-1.02 [facility] Comment on above: The validity [...] Basophils/100 WBC (Bld) 0.3 % 0-1 [facility] Work Phone: Bilirubin [Mass/Vol] 0.70 mg/dL 0.20-1.00 [facility] Work Phone: Comment on above: For patients on eltr ombopag therapy, use of Dimension [place] TBIL is not recommended. Chloride [Moles/Vol] 100 mmol/L 98-107 [facility] Work Phone: Eosinophils/100 WBC (Bld) 0.6 % 0-5 [facility] Work Phone: Glucose [Mass/Vol] 110 mg/dL 74-106 [facility] Work Phone: Comment on above: Fasting Glucose resu lt from 100 to 125 mg/dL suggests IMPAIRED HOMEOSTASIS per A.D.A. criteria. Neutrophils (Bld) [#/Vol] 4.1 10*3/uL 2.0-7.7 [facility] Work Phone: Neutrophils/100 WBC (Bld) 64.9 % 47-70 [facility] Work Phone: Potassium [Moles/Vol] 3.0 mmol/L 3.5-5.1 [facility] Work Phone: Protein [Mass/Vol] 5.8 g/dL 6.4-8.2 [facility] Work Phone: Sodium [Moles/Vol] 136 mmol/L 136-145 [facility] Work Phone: WBC (Bld) [#/Vol] 6.3 10*3/uL 4.4-11.0 [facility] Work Phone: Bilirubin Test strip Ql (U)o n 04-03-2021 Bilirubin Ql (U) Negative Negative [facility] Work Phone: Blood erythrocytes count (nu mber/volume)on 04-03-2021 RBC (Bld) [#/Vol] 4.55 10*6/uL 4.2-5.4 [facility] Work Phone: Blood hemoglobin measurement (mass/volume)on 04-03-2021 Hemoglobin (Bld) [Mass/Vol] 13.1 g/dL 12.0-15.0 [facility] Work Phone: Blood lymphocytes/100 leukoc yteson 04-03-2021 Lymphocytes/100 WBC (Bld) 25.1 % 19-41 [facility] Work Phone: Blood monocytes/100 leukocyt eson 04-03-2021 Monocytes/100 WBC (Bld) 8.1 % 0-10 [facility] Work Phone: Blood platelet mean volumeon 04-03-2021 Platelet mean volume (Bld) [Entitic vol] 10.2 fL 6.2-12.0 [facility] Work Phone: Determination of erythrocyte mean corpuscular volume (MCV)on 04-03-2021 MCV (RBC) [Entitic vol] 86.6 fL 81-99 [facility] Work Phone: Hematocrit Auto (Bld) [...] Globulin (S) [Mass/Vol] 2.9 g/dL 2.2-4.2 [facility] Work Phone: Urea nitrogen/Creatinine [Mass [...] 04-03-2021 MCHC (RBC) [Mass/Vol] 33.2 g/dL 32-36 [facility] Work Phone: Mucus LM Ql (Urine sed)on Mucus Ql (Urine sed) 0 SEEN /hpf [facility] Work Phone: Nitrite Test strip [...] (mass/volume)on 04-03-2021 Albumin [Mass/Vol] 2.9 g/dL 3.2-5.0 [facility] Work Phone: Serum or plasma albumin/glob ulin mass ratioon 04-03-2021 Albumin/Globulin [Mass ratio] 1.0 {ratio} 0.9-2.4 [facility] Work Phone: Serum or plasma calcium hailey urement (mass/volume)on 04-03-2021 Calcium [Mass/Vol] 9.1 mg/dL 8.5-10.1 [facility] Work Phone: Serum or plasma creatinine m easurement (mass/volume)on 04-03-2021 Creatinine [Mass/Vol] 0.80 mg/dL 0.55-1.02 [facility] Work Phone: Comment on above: [...] 04-03-2021 Urobilinogen Ql (U) 1 mg/dl Normal [facility] [facility] Work Phone: Basophil percentageon 2020 Chloride [Moles/Vol] 103 mmol/L 98-[address] [facility] Work Phone: Cholesterol [Mass/Vol] 130 mg/dL <200 elva [facility] Work Phone: Comment on above: <200 mg/dL Desirable 200-240 mg/dL Borderline >240 mg/dL High Risk Glucose [Mass/Vol] 100 mg/dL 74-106 oste [address] [facility] Work Phone: Comment on above: Fasting Glucose resu lt from 100 to 125 mg/dL suggests IMPAIRED HOMEOSTASIS per A.D.A. criteria.Please note revised GLUCOSE reference range effective 2017. Potassium [Moles/Vol] 3.7 mmol/L 3.5-5.1 [facility] Work Phone: Sodium [Moles/Vol] 138 mmol/L 136-145 [facility] Work Phone: Triglyceride [Mass/Vol] 93 mg/dL [facility] Work Phone: Comment on above: [...] (mass/volume)on 02-16-2021 Calcium [Mass/Vol] 10.0 mg/dL 8.5-10.1 [facility] Work Phone: Serum or plasma cholesterol [...] (mass/volume)on 02-16-2021 Creatinine [Mass/Vol] 0.88 mg/dL 0.55-1.02 [facility] Work Phone: Comment on above: [...] PEREIRA M.D. Electronically SignedOut By NIDA PEREIRA MD/[facility] Microscopic Description:Microsco pic analysis shows an asymmetric proliferation of melanocytes, withlentiginous hyperplasia of epidermis. In addition to melanocytes that nestirregularly along the dermal-epidermal junction, other features of dysplasiainclude melanocyte bridging, papillary dermal fibroplasia, melanophages, andinflammatory cells in papillary dermis. The melanocytes show random cytologicatypia.Clin ical History:R/O DPN. Shave biopsy. ([facility]) Specimens Submitted As:A: SKIN, RIGHT UPPER ANT GARCIA Gross Description:Received in formalin is one montilla-brown piece of skin measuring 7 x 7 x 1 mm. Inked and embedded in toto.mlz/11/22/2016 Normal [facility] Comment on above: Performed By: [...] ambulatory Dr. Carlie Renner MD Work Phone: -[facility] Start: 10-29-2024 End: 10-29-[address] Anni Drummond MD -[facility] Work Phone: Start: 10-29-2024 End: 10-29-[address] Anni Drummond MD -[facility] Work Phone: Start: 10-29-2024 End: 10-29-[address] Anni Drummond MD [facility] Start: 10-29-2024 End: 10-29-[address] Carlie Renner MD Work Phone: -[facility] Start: 10-29-2024 End: 10-29-2024 ambulatory Anni Drummond Facility:[facility] Start: 07-20-2024 End: 07-20-2024 Emergency department patient visit Dr. Carlie Renner MD Work Phone: -Emergency Department Work Phone: Start: 09-17-2022 End: 09-17-2022 ambulatory [facility] escobar Work Phone: Start: 09-17-2022 End: 09-17-2022 Patient encounter procedure [facility] Start: 03-20-2022 End: 03-20-2022 ambulatory [facility] tonytal Work Phone: Start: 03-20-2022 End: 03-20-2022 Patient encounter procedure [facility] Start: 06-21-2021 End: 06-21-[address] Carlie Renner Work Phone: [facility] Start: 06-07-2021 Non-patient / Non-visit Dr. Carlie Renner Work Phone: [facility] Start: 06-07-2021 End: 06-07-2021 Admission to same day surgery center Dr. Carlie Renner Work Phone: [facility]-Endoscopy Start: 04-18-2021 End: 04-18-[address] Carlie Renner Work Phone: [facility] Start: 04-03-2021 End: 04-03-2021 Emergency department patient visit Dr. Carlie Renner Work Phone: [facility]-Emergency Department Start: 04-03-[address] Carlie heath Work Phone: [facility]-Physical Therapy Start: 03-28-2021 End: 03-28-[address] Carlie Renner Work Phone: [facility]-Radiology, [place] Start: 03-21-[address] Carlie heath [...] Plasma [facility] Patient Education [facility] Work Phone: Patient referral [facility] Work Phone: T4 free measurement [facility] Thyroid stimulating hormone measurement [facility] Immunizations Immunization Date Immunization Notes Care Provider Filomena solares 12-22-2017 tetanus toxoid, redu sheree diphtheria toxoid, and acellular pertussis vaccine, adsorbed Dr. Carlie Renner Work Phone: [facility] Payers Date Payer Category Payer Self-pay [id number] 2005 Medicare [id number] 2005 Private Health Insurance [id number] Medicare [id number] Unknown [id number] Unknown [id number] Unknown [id number] Social History Date Type Detail Facility Start: 06-06-2021 End: 06-21-2021 Tobacco smoking status NMIS Unknown if ever smoked [facility] Start: 1940 Sex Assigned At Female [facility] Start: 07-20-2024 Tobacco smoking stat us NHIS Never smoked tobacco (finding) [facility] Goals Date Patient Goal Desired Activity /State Mental Status Date Assessment Result Facility 07-20-2024 Cognitive function Level Of Cons ciousness Awake;Alert;Appropriate [facility] Work Phone: 06-07-2021 Cognitive function Voice/Name [facility] Work Phone: Evaluation note 10-29-2024 Note [...] Yes June 06, 2021 8:09am 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 Yes July 20, 2024 7:17pm Chief Complaint [...] DATE CREATED AUTHOR AUTHOR'S ORGANIZ ATION 11/04/2024 [facility] Goals (unrecognized section and content) Goals may [...] BE BASED ON THE PRIMARY CLINICAL RECORDS. [facility] [employer] [facility]. provides no warranty or guarantee of the accuracy or completeness of information in this document.
[2025-01-30 14:31] LABS: AST(SGOT) 36 U/L (<=31); Alanine Aminotransfer ALT/SGPT 37 U/L (<=34); Albumin, Serum 3.1 g/dL (3.4-4.8); Alkaline Phosphatase 179 U/L (35-104); Anion Gap 14 (5-15); BUN 25 mg/dL (4-19); BUN/Creat Ratio 21.2 RATIO (10-20); Calcium,Total 9.1 mg/dL (7.6-11.0); Carbon Dioxide 24.6 mmol/L (21.0-32.0); Chloride 97 mmol/L (98-108); Estimated Creatinine Clearance 39.02 ml/min (50-250); Globulin 3.1 g/dL (2.2-4.2); Glucose 116 mg/dL (70-99); Potassium 4.4 mmol/L (3.3-5.1)
--- NOTE | 2025-01-30 14:35 | HP.PCM.HOS_ITS ---
HPI - General General Date of Admission: 01/30/25 HPI Narrative ANTONI KULKARNI, is a 84 F who presents to the hospital with confusion in the setting of possible UTI. It sounds like she had been treated as an outpatient with Macrobid however her white count has climbed. Unfortunately cannot see her outside cultures. In the emergency room she was found to have a leukocytosis of 13.4 with normal creatinine and a lactic acid that was also normal her urine sample did demonstrate positive nitrites with 500 leukocyte esterase as well as urine bacteria so she was given a dose of Rocephin. Blood cultures and urine cultures are pending. Her blood pressure was little bit soft on admission so she was given a liter of fluid in the emergency room and then given another liter of fluid at 75 cc an hour on admission. Given her confusion she is a poor historian and there is no family at bedside, information was taken from discussion with the ED physician and chart review. [facility] Medical History Debility Health care maintenance Hypertension Wears glasses Wears hearing aid Wears dentures Dementia Uses wheelchair Back pain Dietary restriction Difficulty swallowing Cancer Anxiety Depression History of arthritis History of spinal stenosis History of degenerative disc disease Non-smoker Asthma History of hyperlipidemia Home Medications ?Medication ?Instructions ?Recorded ?Last Taken ?Type atorvastatin 40 mg tablet 40 mg PO DAILY 06/06/21 Unkn own History montelukast 10 mg tablet 10 mg PO DAILY 06/06/21 Unkn own History (Singulair) L.crispatus,gayatri,goodwin,rhamno 5 cap PO QDAY 10/29/24 Unknown History billion cell-bacterioph 15 mg capsule (AZO Dual Protection) cranberry 500 mg capsule 500 mg PO BID 10/29/24 Unkno wn History fluticasone propionate 220 2 inh inhalation QHS #12 gr ams 10/29/24 Unknown Rx mcg/actuation HFA aerosol inhaler glucosamine sulfate 500 mg tablet 500 mg PO QDAY 10/29 Unknown History (Glucosamine) lisinopril 20 1 tab PO QDAY 10/29/24 Unkno wn History mg-hydrochlorothiazide 25 mg tablet Allergy/AdvReac Type Severity Reaction Status Date / Time No Known Allergies Allergy Verified 01/30/25 11:16 Family History Mother Heart disease Daughter Cervical cancer Surgical History History of bilateral knee replacement History of hysterectomy Social History Smoking Status: Never smoker ROS Review of Systems ROS Unobtainable: due to mental status Vital Signs Vital Signs Vital Signs: 01/30/25 11:02 01/30/25 11:04 01/30/25 11:18 Temperature 97.8 F 98.6 F Temperature Source Oral Oral Pulse Rate 96 96 Respiratory Rate 16 16 Respiratory Effort Normal Non-Labored Respiratory Pattern Normal Blood Pressure 106/50 L 106/50 L Blood Pressure Mean 68 68 Pulse Ox 94 94 Oxygen Delivery Method Room Air Room Air 01/30/25 12:04 01/30/25 12:40 01/30/25 13:00 Temperature 97.1 F L 97.9 F Temperature Source Temporal Temporal Pulse Rate 87 97 Respiratory Rate 16 17 Respiratory Effort Respiratory Pattern Blood Pressure 97/69 111/75 Blood Pressure Mean 78 87 Pulse Ox 94 98 Oxygen Delivery Method Room Air Room Air Room Air 01/30/25 13:01 01/30/25 13:59 01/30/25 14:00 Temperature 98.1 F 98 F 97.9 F Temperature Source Oral Temporal Pulse Rate 86 86 97 Respiratory Rate 14 16 Respiratory Effort Respiratory Pattern Blood Pressure 91/74 91/72 91/72 Blood Pressure Mean 79 78 78 Pulse Ox 90 95 98 Oxygen Delivery Method Weight Weight: 213 lb 13.574 oz Body Mass Index (BMI) 37.8 Physical Exam Narrative General: Alert, disoriented, Cooperative, No apparent distress HEENT: Atraumatic, PERRLA, EOMI, Normocephalic Oral: Moist Mucosa Neck: Supple, No JVD Lungs: Diminished, Normal air movement, No rhonchi, No wheeze, No rales Cardiovascular: Regular rate, Regular Rhythm, Normal S1, Normal S2, No murmurs Abdomen: Soft, Non Tender, Non-Distended, No Hepato-splenomegaly Extremities: No edema, bilateral fingers are cyanotic distally despite good radial pulses bilaterally and her toes have capillary refill less than 3 seconds Skin: No rashes, No breakdown Musculoskeletal: No Tenderness to Palpation of Joints or Extremities Neurological: No focal neurological deficits, moves all extremities Psych/Mental Status: Flat Results Lab / Micro Data 01/30/25 11:30 01/30/25 14:00 Labs: Laboratory Results - last 24 hr 01/30/25 11:30: WBC 13.4 H, RBC 5.27, Hgb 15.3 H, Hct 47.0, MCV 89.2, MCH 29.0, MCHC 32.6, RDW Std Deviation 44.2 H, RDW Coeff of Alfredo 13.6, Plt Count 355, MPV 10.5, Immature Gran % (Auto) 2.100 H, Neut % (Auto) 69.6, Lymph % (Auto) 20.5, Cooper % (Auto) 6.6, Eos % (Auto) 0.7, Baso % (Auto) 0.5, Absolute Neuts (auto) 9.3 H, Absolute Lymphs (auto) 2.75, Nucleated RBC % 0, PT 15.4 H, INR 1.2, APTT 27.5, Sodium Cancelled, Potassium Cancelled, Chloride Cancelled, Carbon Dioxide Cancelled, Anion Gap Cancelled, BUN Cancelled, Creatinine Cancelled, Estim Creat Clear Calc Cancelled, Est GFR (MDRD) Non-Af Cancelled, BUN/Creatinine Ratio Cancelled, Glucose Cancelled, Lactic Acid 1.2, Calcium Cancelled, Total Bilirubin Cancelled, AST Cancelled, ALT Cancelled, Alkaline Phosphatase Cancelled, Total Protein Cancelled, Albumin Cancelled, Globulin Cancelled, Albumin/Globulin Ratio Cancelled 01/30/25 11:40: Urine Color Yellow 01/30/25 11:40: Urine Color Cancelled, Urine Clarity Sl. Cloudy 01/30/25 11:40: Urine Clarity Cancelled, Urine pH 6.0 01/30/25 11:40: Urine pH Cancelled, Ur Specific Rousseau 1.015 01/30/25 11:40: Ur Specific Rousseau Cancelled, U Specif Grav (Refrac) Cancelled, Urine Protein 30 H 01/30/25 11:40: Urine Protein Cancelled, Urine Glucose (UA) Normal 01/30/25 11:40: Urine Glucose (UA) Cancelled, Urine Ketones 5 H 01/30/25 11:40: Urine Ketones Cancelled, Urine Occult Blood 10 H 01/30/25 11:40: Urine Occult Blood Cancelled, Urine Nitrite Positive H 01/30/25 11:40: Urine Nitrite Cancelled, Urine Bilirubin Negative 01/30/25 11:40: Urine Bilirubin Cancelled, Urine Urobilinogen Normal 01/30/25 11:40: Urine Urobilinogen Cancelled, Ur Leukocyte Esterase 500 H 01/30/25 11:40: Ur Leukocyte Esterase Cancelled, Urine RBC 0-5 SEEN 01/30/25 11:40: Urine RBC Cancelled, Urine WBC 25-50 SEEN 01/30/25 11:40: Urine WBC Cancelled, Ur Squamous Epith Cells 0-5 SEEN 01/30/25 11:40: Ur Squamous Epith Cells Cancelled, Ur Transition Epith Cell Cancelled, Ur Renal Epithelial Cell Cancelled, Calcium Oxalate Crystal Cancelled, Uric Acid Crystals Cancelled, Triple Phos Crystals Cancelled, Other Crystals Cancelled, Amorphous Sediment Cancelled, Urine Bacteria 2+ 01/30/25 11:40: Urine Bacteria Cancelled, Hyaline Casts Cancelled, Fine Granular Casts Cancelled, Coarse Granular Casts Cancelled, Waxy Casts Cancelled, RBC Casts Cancelled, WBC Casts Cancelled, Urine Mucus 0 SEEN 01/30/25 11:40: Urine Mucus Cancelled, Urine Trichomonas Cancelled, Urine Yeast Cancelled 01/30/25 13:05: Sodium Cancelled, Potassium Cancelled, Chloride Cancelled, Carbon Dioxide Cancelled, Anion Gap Cancelled, BUN Cancelled, Creatinine Cancelled, Estim Creat Clear Calc Cancelled, Est GFR (MDRD) Non-Af Cancelled, BUN/Creatinine Ratio Cancelled, Glucose Cancelled, Calcium Cancelled, Total Bilirubin Cancelled, AST Cancelled, ALT Cancelled, Alkaline Phosphatase Cancelled, Total Protein Cancelled, Albumin Cancelled, Globulin Cancelled, Albumin/Globulin Ratio Cancelled 01/30/25 14:00: Sodium 136, Potassium 4.4, Chloride 97 L, Carbon Dioxide 24.6, Anion Gap 14, BUN 25 H, Creatinine 1.19, Estim Creat Clear Calc 39.02 L, Est GFR (MDRD) Non-Af 45 L, BUN/Creatinine Ratio 21.2 H, Glucose 116 H, Calcium 9.1, Total Bilirubin 0.47, AST 36 H, ALT 37 H, Alkaline Phosphatase 179 H, Total Protein 6.2, Albumin 3.1 L, Globulin 3.1, Albumin/Globulin Ratio 1.0 Micro: Microbiology 01/30/25 12:36 Mucosa - Nose SARS-CoV-2, Influenza & RSV (PCR) - Final Imaging Radiology Impression Chest X-Ray 01/30/25 12:35 IMPRESSION: Similar to the previous study with mild chronic changes but no acute process. Reading Location: [facility] Assessment & Plan Assessment/Plan (1) UTI (urinary tract infection): PLAN: Plan 1. UTI without sepsis/cough ? Continue with Rocephin ? Urine cultures are pending ? Continue with gentle IV fluids ? Regular diet ? Does appear that the cough might be a little bit chronic chest x-ray was unremarkable and could be related to lisinopril ? COVID, flu, RSV was negative in the ER 2. Essential HTN/HLD ? Continue with her home blood pressure medications ? Continue with her home cholesterol medications ? Will monitor make adjustments as necessary 3. Asthma ? Not in exacerbation ? Continue with her home medications DVT: Heparin I did attempt to call the daughter on the phone provided however there was no response 60 minutes was spent on direct patient care, including documentation as well as chart review and collaboration with colleagues Charges/Coding Visit Charges Inpatient E&M: 62342 Init Hosp L2
--- NOTE | 2025-01-30 15:17 | EDS_ITS ---
HPI History of Present Illness Chief Complaint: Complaint Informant: patient and family Limited: dementia Narrative Narrative: Patient is 84-year-old female with history of recent urinary tract infection (treated with course of Macrobid from her PCP which she completed), dementia and hypertension as well as hyperlipidemia presenting from home with daughter for concern of increased confusion, hallucinations and decreased oral intake. Daughter is concerned she still has a urinary tract infection. No fevers reported. States that she has not been eating and drinking much the past 2 days has also had decreased urine output. Had a fall about 2 weeks ago but no recent falls otherwise. No report of any vomiting or change in her bowel movements. Daughter does note the patient had a cough for about 3 weeks now. This was after she was around her daughter who had URI symptoms. No other complaints or concerns at this time reported. [facility] Medical History Debility Health care maintenance Hypertension Wears glasses Wears hearing aid Wears dentures Dementia Uses wheelchair Back pain Dietary restriction Difficulty swallowing Cancer Anxiety Depression History of arthritis History of spinal stenosis History of degenerative disc disease Non-smoker Asthma History of hyperlipidemia Home Medications ?Medication ?Instructions ?Recorded ?Last Taken ?Type atorvastatin 40 mg tablet 40 mg PO DAILY 06/06/21 Unkn own History montelukast 10 mg tablet 10 mg PO DAILY 06/06/21 Unkn own History (Singulair) L.crispatus,gayatri,goodwin,rhamno 5 cap PO QDAY 10/29/24 Unknown History billion cell-bacterioph 15 mg capsule (AZO Dual Protection) cranberry 500 mg capsule 500 mg PO BID 10/29/24 Unkno wn History fluticasone propionate 220 2 inh inhalation QHS #12 gr ams 10/29/24 Unknown Rx mcg/actuation HFA aerosol inhaler glucosamine sulfate 500 mg tablet 500 mg PO QDAY 10/29 Unknown History (Glucosamine) lisinopril 20 1 tab PO QDAY 10/29/24 Unkno wn History mg-hydrochlorothiazide 25 mg tablet Allergy/AdvReac Type Severity Reaction Status Date / Time No Known Allergies Allergy Verified 01/30/25 11:16 Family History Mother Heart disease Daughter Cervical cancer Surgical History History of bilateral knee replacement History of hysterectomy Social History Smoking Status: Never smoker ROS ROS ED Review of Systems ROS Unobtainable: due to mental status Constitutional Constitutional ED: Reports other Details: Decreased appetite and oral intake Genitourinary Genitourinary ED: Reports other Details: Decreased urine output Neurologic Neurologic: Reports weakness Psychiatric Psychiatric: Reports other Details: Increased confusion, visual hallucination EXAM Physical Exam Const Vital Signs: 01/30/25 11:02 01/30/25 11:04 01/30/25 11:18 Temperature 97.8 F 98.6 F Temperature Source Oral Oral Pulse Rate 96 96 Respiratory Rate 16 16 Respiratory Effort Normal Non-Labored Respiratory Pattern Normal Blood Pressure 106/50 L 106/50 L Blood Pressure Mean 68 68 Pulse Ox 94 94 Oxygen Delivery Method Room Air Room Air 01/30/25 12:04 01/30/25 12:40 01/30/25 13:00 Temperature 97.1 F L 97.9 F Temperature Source Temporal Temporal Pulse Rate 87 97 Respiratory Rate 16 17 Respiratory Effort Respiratory Pattern Blood Pressure 97/69 111/75 Blood Pressure Mean 78 87 Pulse Ox 94 98 Oxygen Delivery Method Room Air Room Air Room Air 01/30/25 13:01 Temperature 98.1 F Temperature Source Oral Pulse Rate 86 Respiratory Rate Respiratory Effort Respiratory Pattern Blood Pressure 91/74 Blood Pressure Mean 79 Pulse Ox 90 Oxygen Delivery Method Positive well nourished and well developed General Appearance ED: well developed and NAD HEENT Reports dry mucous membranes HEENT Narrative: Normocephalic atraumatic Mouth ED: Yes dry mucous membranes Mouth: dry mucous membranes Eyes EOMs intact bilaterally Neck supple Chest Wall inspection of chest normal Resp normal respiratory effort and clear to auscultation bilaterally Cardio regular rate and regular rhythm GI normal to inspection, nondistended, normoactive bowel sounds and non-tender Back/Spine no CVA tenderness Extremity normal to inspection General Extremety ED: Negative for edema General Extremity: Negative for edema Neuro Neuro Narrative: Pleasantly demented but confused. Intermittent hallucinating and talking to the curtains while in the room Sensorium / Orientation: alert Motor Exam: general weakness Skin no rashes or lesions noted and no wounds MDM MDM MDM Narrative Medical decision making narrative: Patient evaluated for increased confusion and concern for possible urinary tract infection. Upon arrival patient's vital signs are normal however blood pressure is a little soft and I am in the room. Urinalysis initially was ordered until I could see the patient. Urinalysis is consistent with UTI with positive nitrates, 5 ketones 25-50 white blood cells, 500 leukocyte esterase and 2+ bacteria. She has a leukocytosis of 13.4 which is uptrending compared to 2 weeks ago. She has a left shift. There is a delay in her CMP secondary to hemolysis. Patient is given IV fluids given report poor oral intake and soft blood pressure in the ER. Started on Rocephin (no prior culture available for comparison). Patient be admitted for concern encephalopathy secondary to urinary tract infection. Cultures are pending. Case discussed with hospitalist, Dr. Flor. Family agreeable to plan of care. Lab Data Attestation: I reviewed the patient's lab results. Labs: Laboratory Results - last 24 hr 01/30/25 01/30/25 01/30/25 11:30 11:40 11:40 WBC 13.4 H RBC 5.27 Hgb 15.3 H Hct 47.0 MCV 89.2 MCH 29.0 MCHC 32.6 RDW Std Deviation 44.2 H RDW Coeff of Alfredo 13.6 Plt Count 355 MPV 10.5 Immature Gran % (Auto) 2.100 H Neut % (Auto) 69.6 Lymph % (Auto) 20.5 [place] % (Auto) 6.6 Eos % (Auto) 0.7 Baso % (Auto) 0.5 Absolute Neuts (auto) 9.3 H Absolute Lymphs (auto) 2.75 Nucleated RBC % 0 PT 15.4 H INR 1.2 APTT 27.5 Sodium Cancelled Potassium Cancelled Chloride Cancelled Carbon Dioxide Cancelled Anion Gap Cancelled BUN Cancelled Creatinine Cancelled Estim Creat Clear Calc Cancelled Est GFR (MDRD) Non-Af Cancelled BUN/Creatinine Ratio Cancelled Glucose Cancelled Lactic Acid 1.2 Calcium Cancelled Total Bilirubin Cancelled AST Cancelled ALT Cancelled Alkaline Phosphatase Cancelled Total Protein Cancelled Albumin Cancelled Globulin Cancelled Albumin/Globulin Ratio Cancelled Urine Color Yellow Cancelled Urine Clarity Sl. Cloudy Urine pH Ur Specific [place] U Specif Grav (Refrac) Urine Protein Urine Glucose (UA) Urine Ketones Urine Occult Blood Urine Nitrite Urine Bilirubin Urine Urobilinogen Ur Leukocyte Esterase Urine RBC Urine WBC Ur Squamous Epith Cells Ur Transition Epith Cell Ur Renal Epithelial Cell Calcium Oxalate Crystal Uric Acid Crystals Triple Phos Crystals Other Crystals Amorphous Sediment Urine Bacteria Hyaline Casts Fine Granular Casts Coarse Granular Casts Waxy Casts RBC Casts WBC Casts Urine Mucus Urine Trichomonas Urine Yeast 01/30/25 01/30/25 01/30/25 11:40 11:40 11:40 WBC RBC Hgb Hct MCV MCH MCHC RDW Std Deviation RDW Coeff of Alfredo Plt Count MPV Immature Gran % (Auto) Neut % (Auto) Lymph % (Auto) [facility] % (Auto) Eos % (Auto) Baso % (Auto) Absolute Neuts (auto) Absolute Lymphs (auto) Nucleated RBC % PT INR APTT Sodium Potassium Chloride Carbon Dioxide Anion Gap BUN Creatinine Estim Creat Clear Calc Est GFR (MDRD) Non-Af BUN/Creatinine Ratio Glucose Lactic Acid Calcium Total Bilirubin AST ALT Alkaline Phosphatase Total Protein Albumin Globulin Albumin/Globulin Ratio Urine Color Urine Clarity Cancelled Urine pH 6.0 Cancelled Ur Specific [place] 1.015 Cancelled U Specif Grav (Refrac) Cancelled Urine Protein 30 H Urine Glucose (UA) Urine Ketones Urine Occult Blood Urine Nitrite Urine Bilirubin Urine Urobilinogen Ur Leukocyte Esterase Urine RBC Urine WBC Ur Squamous Epith Cells Ur Transition Epith Cell Ur Renal Epithelial Cell Calcium Oxalate Crystal Uric Acid Crystals Triple Phos Crystals Other Crystals Amorphous Sediment Urine Bacteria Hyaline Casts Fine Granular Casts Coarse Granular Casts Waxy Casts RBC Casts WBC Casts Urine Mucus Urine Trichomonas Urine Yeast 01/30/25 01/30/25 01/30/25 11:40 11:40 11:40 WBC RBC Hgb Hct MCV MCH MCHC RDW Std Deviation RDW Coeff of Alfredo Plt Count MPV Immature Gran % (Auto) Neut % (Auto) Lymph % (Auto) [facility] % (Auto) Eos % (Auto) Baso % (Auto) Absolute Neuts (auto) Absolute Lymphs (auto) Nucleated RBC % PT INR APTT Sodium Potassium Chloride Carbon Dioxide Anion Gap BUN Creatinine Estim Creat Clear Calc Est GFR (MDRD) Non-Af BUN/Creatinine Ratio Glucose Lactic Acid Calcium Total Bilirubin AST ALT Alkaline Phosphatase Total Protein Albumin Globulin Albumin/Globulin Ratio Urine Color Urine Clarity Urine pH Ur Specific [place] U Specif Grav (Refrac) Urine Protein Cancelled Urine Glucose (UA) Normal Cancelled Urine Ketones 5 H Cancelled Urine Occult Blood 10 H Urine Nitrite Urine Bilirubin Urine Urobilinogen Ur Leukocyte Esterase Urine RBC Urine WBC Ur Squamous Epith Cells Ur Transition Epith Cell Ur Renal Epithelial Cell Calcium Oxalate Crystal Uric Acid Crystals Triple Phos Crystals Other Crystals Amorphous Sediment Urine Bacteria Hyaline Casts Fine Granular Casts Coarse Granular Casts Waxy Casts RBC Casts WBC Casts Urine Mucus Urine Trichomonas Urine Yeast 01/30/25 01/30/25 01/30/25 11:40 11:40 11:40 WBC RBC Hgb Hct MCV MCH MCHC RDW Std Deviation RDW Coeff of Alfredo Plt Count MPV Immature Gran % (Auto) Neut % (Auto) Lymph % (Auto) [facility] % (Auto) Eos % (Auto) Baso % (Auto) Absolute Neuts (auto) Absolute Lymphs (auto) Nucleated RBC % PT INR APTT Sodium Potassium Chloride Carbon Dioxide Anion Gap BUN Creatinine Estim Creat Clear Calc Est GFR (MDRD) Non-Af BUN/Creatinine Ratio Glucose Lactic Acid Calcium Total Bilirubin AST ALT Alkaline Phosphatase Total Protein Albumin Globulin Albumin/Globulin Ratio Urine Color Urine Clarity Urine pH Ur Specific [place] U Specif Grav (Refrac) Urine Protein Urine Glucose (UA) Urine Ketones Urine Occult Blood Cancelled Urine Nitrite Positive H Cancelled Urine Bilirubin Negative Cancelled Urine Urobilinogen Normal Ur Leukocyte Esterase Urine RBC Urine WBC Ur Squamous Epith Cells Ur Transition Epith Cell Ur Renal Epithelial Cell Calcium Oxalate Crystal Uric Acid Crystals Triple Phos Crystals Other Crystals Amorphous Sediment Urine Bacteria Hyaline Casts Fine Granular Casts Coarse Granular Casts Waxy Casts RBC Casts WBC Casts Urine Mucus Urine Trichomonas Urine Yeast 01/30/25 01/30/25 01/30/25 11:40 11:40 11:40 WBC RBC Hgb Hct MCV MCH MCHC RDW Std Deviation RDW Coeff of Alfredo Plt Count MPV Immature Gran % (Auto) Neut % (Auto) Lymph % (Auto) [facility] % (Auto) Eos % (Auto) Baso % (Auto) Absolute Neuts (auto) Absolute Lymphs (auto) Nucleated RBC % PT INR APTT Sodium Potassium Chloride Carbon Dioxide Anion Gap BUN Creatinine Estim Creat Clear Calc Est GFR (MDRD) Non-Af BUN/Creatinine Ratio Glucose Lactic Acid Calcium Total Bilirubin AST ALT Alkaline Phosphatase Total Protein Albumin Globulin Albumin/Globulin Ratio Urine Color Urine Clarity Urine pH Ur Specific [place] U Specif Grav (Refrac) Urine Protein Urine Glucose (UA) Urine Ketones Urine Occult Blood Urine Nitrite Urine Bilirubin Urine Urobilinogen Cancelled Ur Leukocyte Esterase 500 H Cancelled Urine RBC 0-5 SEEN Cancelled Urine WBC 25-50 SEEN Ur Squamous Epith Cells Ur Transition Epith Cell Ur Renal Epithelial Cell Calcium Oxalate Crystal Uric Acid Crystals Triple Phos Crystals Other Crystals Amorphous Sediment Urine Bacteria Hyaline Casts Fine Granular Casts Coarse Granular Casts Waxy Casts RBC Casts WBC Casts Urine Mucus Urine Trichomonas Urine Yeast 01/30/25 01/30/25 01/30/25 11:40 11:40 11:40 WBC RBC Hgb Hct MCV MCH MCHC RDW Std Deviation RDW Coeff of Alfredo Plt Count MPV Immature Gran % (Auto) Neut % (Auto) Lymph % (Auto) [facility] [facility] % (Auto) Eos % (Auto) Baso % (Auto) Absolute Neuts (auto) Absolute Lymphs (auto) Nucleated RBC % PT INR APTT Sodium Potassium Chloride Carbon Dioxide Anion Gap BUN Creatinine Estim Creat Clear Calc Est GFR (MDRD) Non-Af BUN/Creatinine Ratio Glucose Lactic Acid Calcium Total Bilirubin AST ALT Alkaline Phosphatase Total Protein Albumin Globulin Albumin/Globulin Ratio Urine Color Urine Clarity Urine pH Ur Specific [place] U Specif Grav (Refrac) Urine Protein Urine Glucose (UA) Urine Ketones Urine Occult Blood Urine Nitrite Urine Bilirubin Urine Urobilinogen Ur Leukocyte Esterase Urine RBC Urine WBC Cancelled Ur Squamous Epith Cells 0-5 SEEN Cancelled Ur Transition Epith Cell Cancelled Ur Renal Epithelial Cell Cancelled Calcium Oxalate Crystal Cancelled Uric Acid Crystals Cancelled Triple Phos Crystals Cancelled Other Crystals Cancelled Amorphous Sediment Cancelled Urine Bacteria 2+ Cancelled Hyaline Casts Cancelled Fine Granular Casts Cancelled Coarse Granular Casts Cancelled Waxy Casts Cancelled RBC Casts Cancelled WBC Casts Cancelled Urine Mucus 0 SEEN Urine Trichomonas Urine Yeast 01/30/25 01/30/25 11:40 13:05 WBC RBC Hgb Hct MCV MCH MCHC RDW Std Deviation RDW Coeff of Alfredo Plt Count MPV Immature Gran % (Auto) Neut % (Auto) Lymph % (Auto) [facility] % (Auto) Eos % (Auto) Baso % (Auto) Absolute Neuts (auto) Absolute Lymphs (auto) Nucleated RBC % PT INR APTT Sodium Cancelled Potassium Cancelled Chloride Cancelled Carbon Dioxide Cancelled Anion Gap Cancelled BUN Cancelled Creatinine Cancelled Estim Creat Clear Calc Cancelled Est GFR (MDRD) Non-Af Cancelled BUN/Creatinine Ratio Cancelled Glucose Cancelled Lactic Acid Calcium Cancelled Total Bilirubin Cancelled AST Cancelled ALT Cancelled Alkaline Phosphatase Cancelled Total Protein Cancelled Albumin Cancelled Globulin Cancelled Albumin/Globulin Ratio Cancelled Urine Color Urine Clarity Urine pH Ur Specific [place] U Specif Grav (Refrac) Urine Protein Urine Glucose (UA) Urine Ketones Urine Occult Blood Urine Nitrite Urine Bilirubin Urine Urobilinogen Ur Leukocyte Esterase Urine RBC Urine WBC Ur Squamous Epith Cells Ur Transition Epith Cell Ur Renal Epithelial Cell Calcium Oxalate Crystal Uric Acid Crystals Triple Phos Crystals Other Crystals Amorphous Sediment Urine Bacteria Hyaline Casts Fine Granular Casts Coarse Granular Casts Waxy Casts RBC Casts WBC Casts Urine Mucus Cancelled Urine Trichomonas Cancelled Urine Yeast Cancelled Radiography Diagnostic Testing: Clinical Impression(s) from Imaging Studies Chest X-Ray 01/30/25 12:35 IMPRESSION: Similar to the previous study with mild chronic changes but no acute process. Reading [facility] Rhythm Strip Rhythm Strip: A-fib Rate: 88 Ectopy: None EKG Initial EKG: Attestation: I personally reviewed and interpreted this EKG as follows: Interpretation: Atrial Fibrillation Comments: Atrial fibrillation rate of 88 bpm Normal axis Normal intervals Low-voltage QRS No significant change prior to prior EKG on 01/16/2025 Prior EKG tracings: available for review Prior: Unchanged Management Discussion w/another healthcare provider: Hospitalist Discharge Plan Dx/Rx/DC Orders Clinical Impression: UTI (urinary tract infection), Acute delirium, Leukocytosis, Debility Disposition Disposition: [facility] Discharge Date/Time: 01/30/25 14:11
[2025-01-30] MEDS: 0.9% Normal Saline (1000mL) 1,000 ML 75 ML IV (15:22)
[2025-01-30] MEDS: Heparin Injection (Vial) 5,000 UNIT/ML VIAL 5000 UNIT SC ×2 (15:29→21:31)
--- NOTE | 2025-01-30 15:36 | NURSING ---
Pt refusing to keep O2 in nostrils. Dr. Rizo notified of ashen fingertips. watch her pulses. unable to do full assessment d/t coughing and uncooperative. unable to get history or get answers from Pt.
[2025-01-31 04:25] VITALS: BP 93/46; PULSE 99; RESP 15; TEMP 36.6; O2SAT 97
[2025-01-31] MEDS: Heparin Injection (Vial) 5,000 UNIT/ML VIAL 5000 UNIT SC ×3 (05:34→20:33)
[2025-01-31] MEDS: Lactated Ringers 1,000 ML 125 ML IV ×2 (06:33→15:56)
[2025-01-31 07:21] LABS: Hematocrit 41.6 % (37-47); Hemoglobin 13.3 g/dL (12.0-15.0); Immature Granulocytes Count 0.230 X10^3/uL (0.0-0.0); Mean Corp Hgb Conc 32.0 g/dL (32-36); Mean Corpuscular Volume 90.2 fL (81-99); Mean Platelet Vol. 10.3 fl (6.2-12.0); NRBC Flagged by Analyzer 0 % (0-5); Platelet Count 328 K/mm3 (150-450); RBC Distribution Width CV 13.8 % (11.6-14.6); RBC Distribution Width SD 45.6 fl (35.1-43.9); Red Blood Count 4.61 M/mm3 (4.2-5.4); White Blood Count 12.4 K/mm3 (4.4-11.0)
--- NOTE | 2025-01-31 08:09 | PN.HOSP_ITS ---
Reason for Visit Chief Complaint: Altered mental status Subjective Subjective Per discussion with daughter patient has had significant decline over time however it significantly worse in the last several days. She has baseline orientation of self and place if she is in unfamiliar setting. She is never oriented to time. Patient has had issues with urinary and bowel incontinence as of recently. The bowel incontinence is new. It does appear that she tested positive for outpatient urinary tract infection and was placed on Macrobid but has continued to decline. Her daughter is questioning if we could have hospice evaluate her and is amenable to this at this time. They have been trying to get her into [facility]. Case management is involved. Per her daughter she has not been eating and drinking well over the last several days. Patient is fairly nonambulatory at baseline. Objective Data Objective Data Vital Signs: Vital Signs Temp Pulse Resp BP Pulse Ox O2 Del Method O2 Flow Rate 97.9 F 99 15 93/46 L 97 Nasal Cannula 3 01/31/25 04:25 01/31/25 04:25 01/31/25 04:25 01/31/25 04:25 01/31/25 04:25 01/31/25 04:25 01/31/25 04:25 Oxygen Flow Rate (L/min) 3 Oxygen Delivery Method Nasal Cannula Weight: 93.984 kg Body Mass Index (BMI) 35.5 Intake & Output: Intake and Output for Last 24 Hours 01/29/25 01/30/25 01/31/25 23:59 23:59 23:59 Intake Total 1050 / 1050 1000 / 1000 Output Total 0 / 0 Balance 1050 / 1050 1000 / 1000 Lab / Micro Data 01/31/25 06:40 01/31/25 06:40 Labs: Laboratory Results - last 24 hr 01/30/25 11:30: WBC 13.4 H, RBC 5.27, Hgb 15.3 H, Hct 47.0, MCV 89.2, MCH 29.0, MCHC 32.6, RDW Std Deviation 44.2 H, RDW Coeff of Alfredo 13.6, Plt Count 355, MPV 10.5, Immature Gran % (Auto) 2.100 H, Neut % (Auto) 69.6, Lymph % (Auto) 20.5, [place] % (Auto) 6.6, Eos % (Auto) 0.7, Baso % (Auto) 0.5, Absolute Neuts (auto) 9.3 H, Absolute Lymphs (auto) 2.75, Nucleated RBC % 0, PT 15.4 H, INR 1.2, APTT 27.5, Sodium Cancelled, Potassium Cancelled, Chloride Cancelled, Carbon Dioxide Cancelled, Anion Gap Cancelled, BUN Cancelled, Creatinine Cancelled, Estim Creat Clear Calc Cancelled, Est GFR (MDRD) Non-Af Cancelled, BUN/Creatinine Ratio Cancelled, Glucose Cancelled, Lactic Acid 1.2, Calcium Cancelled, Total Bilirubin Cancelled, AST Cancelled, ALT Cancelled, Alkaline Phosphatase Cancelled, Total Protein Cancelled, Albumin Cancelled, Globulin Cancelled, Albumin/Globulin Ratio Cancelled 01/30/25 11:40: Urine Color Yellow 01/30/25 11:40: Urine Color Cancelled, Urine Clarity Sl. Cloudy 01/30/25 11:40: Urine Clarity Cancelled, Urine pH 6.0 01/30/25 11:40: Urine pH Cancelled, Ur Specific [place] 1.015 01/30/25 11:40: Ur Specific [place] Cancelled, U Specif Grav (Refrac) Cancelled, Urine Protein 30 H 01/30/25 11:40: Urine Protein Cancelled, Urine Glucose (UA) Normal 01/30/25 11:40: Urine Glucose (UA) Cancelled, Urine Ketones 5 H 01/30/25 11:40: Urine Ketones Cancelled, Urine Occult Blood 10 H 01/30/25 11:40: Urine Occult Blood Cancelled, Urine Nitrite Positive H 01/30/25 11:40: Urine Nitrite Cancelled, Urine Bilirubin Negative 01/30/25 11:40: Urine Bilirubin Cancelled, Urine Urobilinogen Normal 01/30/25 11:40: Urine Urobilinogen Cancelled, Ur Leukocyte Esterase 500 H 01/30/25 11:40: Ur Leukocyte Esterase Cancelled, Urine RBC 0-5 SEEN 01/30/25 11:40: Urine RBC Cancelled, Urine WBC 25-50 SEEN 01/30/25 11:40: Urine WBC Cancelled, Ur Squamous Epith Cells 0-5 SEEN 01/30/25 11:40: Ur Squamous Epith Cells Cancelled, Ur Transition Epith Cell Cancelled, Ur Renal Epithelial Cell Cancelled, Calcium Oxalate Crystal Cancelled, Uric Acid Crystals Cancelled, Triple Phos Crystals Cancelled, Other Crystals Cancelled, Amorphous Sediment Cancelled, Urine Bacteria 2+ 01/30/25 11:40: Urine Bacteria Cancelled, Hyaline Casts Cancelled, Fine Granular Casts Cancelled, Coarse Granular Casts Cancelled, Waxy Casts Cancelled, RBC Casts Cancelled, WBC Casts Cancelled, Urine Mucus 0 SEEN 01/30/25 11:40: Urine Mucus Cancelled, Urine Trichomonas Cancelled, Urine Yeast Cancelled 01/30/25 13:05: Sodium Cancelled, Potassium Cancelled, Chloride Cancelled, Carbon Dioxide Cancelled, Anion Gap Cancelled, BUN Cancelled, Creatinine Cancelled, Estim Creat Clear Calc Cancelled, Est GFR (MDRD) Non-Af Cancelled, BUN/Creatinine Ratio Cancelled, Glucose Cancelled, Calcium Cancelled, Total Bilirubin Cancelled, AST Cancelled, ALT Cancelled, Alkaline Phosphatase Cancelled, Total Protein Cancelled, Albumin Cancelled, Globulin Cancelled, Albumin/Globulin Ratio Cancelled 01/30/25 14:00: Sodium 136, Potassium 4.4, Chloride 97 L, Carbon Dioxide 24.6, Anion Gap 14, BUN 25 H, Creatinine 1.19, Estim Creat Clear Calc 39.02 L, Est GFR (MDRD) Non-Af 45 L, BUN/Creatinine Ratio 21.2 H, Glucose 116 H, Calcium 9.1, Total Bilirubin 0.47, AST 36 H, ALT 37 H, Alkaline Phosphatase 179 H, Total Protein 6.2, Albumin 3.1 L, Globulin 3.1, Albumin/Globulin Ratio 1.0 01/31/25 06:40: WBC 12.4 H, RBC 4.61, Hgb 13.3, Hct 41.6, MCV 90.2, MCH 28.9, MCHC 32.0, RDW Std Deviation 45.6 H, RDW Coeff of Alfredo 13.8, Plt Count 328, MPV 10.3, Immature Gran % (Auto) 1.900 H, Neut % (Auto) 66.8, Lymph % (Auto) 23.4, [place] % (Auto) 6.6, Eos % (Auto) 0.8, Baso % (Auto) 0.5, Absolute Neuts (auto) 8.3 H, Absolute Lymphs (auto) 2.89, Nucleated RBC % 0 Micro: Microbiology 01/30/25 12:36 Mucosa - Nose SARS-CoV-2, Influenza & RSV (PCR) - Final Radiography Diagnostic Testing: Radiology Impression Chest X-Ray 01/30/25 12:35 IMPRESSION: Similar to the previous study with mild chronic changes but no acute process. Reading Location: [facility] Rhythm Strip Rhythm Strip: A-fib Rate: 88 Ectopy: None Physical Exam Const alert, no apparent distress and average body habitus; Negative for healthy appearing or well nourished Constitutional Narrative: Obese, elderly, white female, oriented only to self, intermittently agitated mildly, daughter at bedside, appears ill but not toxic, warm to touch Orientation / Consciousness: confused and disoriented HEENT head/scalp atraumatic HEENT Narrative: Mucous membranes are slightly dry, Mallampati is 3, no thrush Head and Scalp: normocephalic Resp normal respiratory effort, no retractions, no use of accessory muscles and clear to auscultation bilaterally Auscultation: Negative for crackles, rhonchi or wheezes Cardio regular rate, regular rhythm, S1 normal heart sound, S2 normal heart sound, no murmurs, no rub, no gallops and no clicks GI normal to inspection, nondistended, normoactive bowel sounds, soft to palpation and non-tender Extremity no clubbing, cyanosis or edema Extremity Narrative: Pedal pulses and radial pulses are 2+ bilaterally, decreased lean muscle mass bilateral lower extremities Neuro moves all extremities and no focal motor deficits Neuro Narrative: Spontaneously moves all extremities but does not move to command at this time Speech: Negative for speech normal Psych Psych Narrative: Difficult to assess with mental status Assessment & Plan Assessment/Plan (1) UTI (urinary tract infection): PLAN: Plan Acute UTI - Continue Rocephin - Cultures are pending - Continue IV fluids as p.o. intake is minimal Cough - could be related to aspiration versus lisinopril - Infectious workup is unremarkable -With goals of care will hold off on speech therapy at this time - Chest x-ray shows only chronic changes - Continue to monitor Asthma - Continue with home medications as able - No signs of acute exacerbation - Continue Singulair if patient can be compliant Acute metabolic encephalopathy on chronic dementia - Acuity is likely related to UTI - Monitor clinically for improvement with treatment of infection - Per daughter dementia has slowly worsened over time and she is interested in hospice - Hospice consultation Generalized weakness/debility - Sounds as if patient is predominantly wheelchair-bound at baseline - Therapy services are consulted - Hospice consult in place Essential hypertension/hyperlipidemia - With overall prognosis we will discontinue atorvastatin - Continue lisinopril/HCTZ if blood pressures are relatively stable will likely discontinue at discharge Anxiety/depression - Patient not on anything chronically DVT prophylaxis - Continue subcu heparin CODE STATUS - Discussed with patient's daughter and she will indicated that per previous discussion DNR CCA is most appropriate with no intubation. Order placed Charges/Coding Visit Charges Inpatient E&M: 52757 Subs Hosp L2
[2025-01-31 08:12] LABS: Anion Gap 12 (5-15); BUN 25 mg/dL (4-19); BUN/Creat Ratio 19.5 RATIO (10-20); Calcium,Total 8.8 mg/dL (7.6-11.0); Carbon Dioxide 24.4 mmol/L (21.0-32.0); Chloride 103 mmol/L (98-108); Estimated Creatinine Clearance 35.81 ml/min (50-250); Glucose 97 mg/dL (70-99); Potassium 4.2 mmol/L (3.3-5.1)
[2025-01-31 09:00] VITALS: BP 108/56; PULSE 106; RESP 18; TEMP 36.9; O2SAT 96
--- NOTE | 2025-01-31 12:10 | CASEMGMT ---
Social Work- SW met with pt and pt dtr to discuss discharge planning. SW introduced self and role. Pt dtr reports that pt has a room at [facility] and some of pt belongings have already been moved in. Dtr Jannet states that [facility] has 2 aides that pt will pay for and will assist in caring for pt. Jannet reports that she has been working for [address] Drummond to get paperwork completed for [facility], but Jannet has been unable to get a return call. Jannet reports that she is interested in hospice referral for pt due to pt decline in the past 1-2 weeks. SW to coordinate with [facility] and hospitalist. AC called [facility] and spoke with Dimas. [facility]as confirmed information that Jannet relayed, reporting that they have already assessed pt and feel comfortable with care needs. Dimas to email AC paperwork for completion. AC collaborated with hospitalist. Hospitalist met with pt and pt dtr; agreeable to hospice referral. Pt dtr indicated preference of [facility]. AC completed hospice referral via email. AC remains available to follow. ZION Stephens
[2025-01-31 14:15] VITALS: BP 106/47; PULSE 91; RESP 18; TEMP 37.1; O2SAT 96
--- NOTE | 2025-01-31 14:39 | CASEMGMT ---
Social Work- SW received notice that [facility] will meet with pt and pt dtr tomorrow (02/01) for hospice consult at 10:30. Hospitalist updated. ZION Stephens
[2025-01-31 20:15] VITALS: BP 101/51; PULSE 78; RESP 20; TEMP 37.6; O2SAT 97
[2025-02-01] MEDS: MELATONIN 3 MG TABLET PO ×2 (00:44→22:12)
[2025-02-01 03:00] VITALS: BP 105/79; PULSE 79; RESP 16; TEMP 36.3; O2SAT 94
--- NOTE | 2025-02-01 03:52 | NURSING ---
pt dc'd her own iv. multiple attempts by multiple rns with no success. made aware. pt meeting w/hospice in am.
[2025-02-01] MEDS: Heparin Injection (Vial) 5,000 UNIT/ML VIAL 5000 UNIT SC ×3 (05:29→22:12)
[2025-02-01 07:02] VITALS: PULSE 71; RESP 16; O2SAT 94
[2025-02-01] MEDS: Budesonide Respules 0.5 MG/2 ML AMPUL.NEB. INHALATION (07:02)
[2025-02-01 08:20] VITALS: BP 110/52; PULSE 75; RESP 17; TEMP 36.8; O2SAT 99
--- NOTE | 2025-02-01 09:26 | WOUNDNOTE ---
Was asked to see patient for possible pressure injury to buttocks. patient able to turn well to the left side. some mild redness noted to bilateral buttocks but the skin blanches. no open areas noted. no pressure injury noted at this time. calmoseptine has been ordered and being applied.
--- NOTE | 2025-02-01 12:21 | CASEMGMT ---
Addendum entered by Ju Lanier 02/01/25 14:03: SW collaborated with import coordinator and hospitalist. Pt will d/c tomorrow due to facility request with equipment delivery. [facility] has transport arranged; will call SW with time. SW met with pt dtr to discuss plans and verify arrangements. Pt dtr appreciative of assistance and agreeable to d/c plans. SW remains available to follow. Plan: [facility] hosp[facility] ZION Stephens Original Note: Social Work- AC emailed completed paperwork to [facility]. SW met with import coordinator who reports that pt signed for services. estimator and drafter supervisor to work on equipment delivery. AC remains available to follow. ZION Stephens
--- NOTE | 2025-02-01 14:10 | PCM.PN.HOSP ---
Reason for Visit Chief Complaint: Altered mental status Subjective Subjective Patient pulled IV access overnight. Will transition ceftriaxone to IM from IV. Hospice eval pending. Anticipate discharge to [place] with hospice at the time of discharge. Objective Data Objective Data Vital Signs: Vital Signs Temp Pulse Resp BP Pulse Ox O2 Del Method O2 Flow Rate 98.3 F 75 17 110/52 L 99 Nasal Cannula 2 02/01/25 08:20 02/01/25 08:20 02/01/25 08:20 02/01/25 08:20 02/01/25 08:20 02/01/25 08:20 02/01/25 08:20 Oxygen Flow Rate (L/min) 2 Oxygen Delivery Method Nasal Cannula Weight: 93.984 kg Body Mass Index (BMI) 35.5 Intake & Output: Intake and Output for Last 24 Hours 01/30/25 01/31/25 02/01/25 23:59 23:59 23:59 Intake Total 1050 / 1050 2150 / 2150 1000 / 1000 Output Total 0 / 1 352 / 352 Balance 1050 / 1050 2150 / 2149 648 / 648 Lab / Micro Data 01/31/25 06:40 01/31/25 06:40 Micro: Microbiology 01/30/25 12:41 Blood Culture (Wb) - Anticubital Left Blood Culture - Preliminary No growth in 48 hours. 01/30/25 11:30 Blood Culture (Wb) - Right Hand Blood Culture - Preliminary No growth in 48 hours. 01/30/25 11:40 Urine Catheter - Catheter Urine Culture - Final Escherichia coli 01/30/25 12:36 Mucosa - Nose SARS-CoV-2, Influenza & RSV (PCR) - Final Rhythm Strip Rhythm Strip: A-fib Rate: 88 Ectopy: None Physical Exam Const alert, no apparent distress and average body habitus; Negative for healthy appearing or well nourished Constitutional Narrative: Obese, elderly, white female, intermittently awake but speaking nonsensical and no meaningful interaction, family at bedside Orientation / Consciousness: confused and disoriented HEENT head/scalp atraumatic; Negative for moist oral mucous membranes HEENT Narrative: Mucous membranes are slightly dry Head and Scalp: normocephalic Neuro moves all extremities and no focal motor deficits Neuro Narrative: Spontaneously moves all extremities but does not move to command at this time Speech: Negative for speech normal Psych Psych Narrative: Difficult to assess with mental status Assessment & Plan Assessment/Plan (1) UTI (urinary tract infection): PLAN: Plan Acute E. coli UTI - Continue Rocephin but transition to IM as patient has pulled her IV out and p.o. intake has been difficult - Cultures show pansensitive E. coli - Continue IV fluids as p.o. intake is minimal Cough - could be related to aspiration versus lisinopril - Infectious workup is unremarkable -With goals of care will hold off on speech therapy at this time - Chest x-ray shows only chronic changes - Continue to monitor - Not significantly notable at the time my examination Asthma - Continue with home medications as able - No signs of acute exacerbation - Continue Singulair if patient can be compliant Acute metabolic encephalopathy on chronic dementia - Acuity is likely related to UTI-May be slightly improved with increased alertness - Monitor clinically for improvement with treatment of infection - Per daughter dementia has slowly worsened over time and she is interested in hospice - Hospice consultation Generalized weakness/debility - Sounds as if patient is predominantly wheelchair-bound at baseline - Therapy services are consulted - Hospice consult in place Essential hypertension/hyperlipidemia - With overall prognosis we will discontinue atorvastatin - Continue lisinopril/HCTZ if blood pressures are relatively stable will likely discontinue at discharge Anxiety/depression - Patient not on anything chronically DVT prophylaxis - Continue subcu heparin CODE STATUS - DNR CCA with no intubation Disposition: - Patient has met with hospice and plan is for discharge to [facility] with hospice on 02/02/2025 and CODE STATUS DNR CC Charges/Coding Visit Charges Inpatient E&M: 75988 Subs Hosp L1
[2025-02-01 14:13] VITALS: BP 99/59; PULSE 86; RESP 18; TEMP 36.4; O2SAT 99
[2025-02-01 20:27] VITALS: BP 109/60; PULSE 91; RESP 16; TEMP 36.7; O2SAT 96
[2025-02-02 02:52] VITALS: BP 94/54; PULSE 98; RESP 15; TEMP 36.8; O2SAT 99
[2025-02-02] MEDS: Heparin Injection (Vial) 5,000 UNIT/ML VIAL 5000 UNIT SC (06:32)
[2025-02-02] MEDS: Budesonide Respules 0.5 MG/2 ML AMPUL.NEB. INHALATION (07:21)
--- NOTE | 2025-02-02 07:25 | PCM.DC.SUM ---
Providers Date of Admission: 01/30/25 Date of Discharge: 02/02/25 Primary Care Physician: Dr. Anni Drummond MD Consultations 01/31/25 12:24 Consult: Hospice / Outpatient Palliative Care Routine Consulting Provider: [facility] Reason for Consult: decline in condition EMERGENT Consult: No MD Notified: Yes Date Notified: 01/31/25 Time Notified: 12:24 Method of Notification: Verbal Reason For Visit: UTI WITH AMS Diagnosis Discharge Diagnosis (1) UTI (urinary tract infection): Status: Acute Code(s): N39.0 - Urinary tract infection, site not specified Medications at Discharge Home Medications montelukast 10 mg tablet (Singulair) 10 mg PO DAILY 06/06/21 L.crispatus,gayatri,goodwin,rhamno 5 billion cell-bacterioph 15 mg capsule (AZO Dual Protection) cap PO QDAY 10/29/24 cranberry 500 mg capsule 500 mg PO BID 10/29/24 fluticasone propionate 220 mcg/actuation HFA aerosol inhaler 2 inh inhalation QHS #12 grams 10/29/24 melatonin 3 mg tablet 3 mg PO QHS #0 tabs 02/02/25 menthol 0.44 %-zinc oxide 20.6 % topical ointment (Calmoseptine) 1 applic topical TID #0 grams 02/02/25 Hospital Course Operations None Procedures EKG and - (Chest x-ray) Summary of Care Provided Minutes Spent on Discharge: 37 Hospital Course: Mrs. Moncada is an 84-year-old female with a history of dementia who presented to the emergency department at [facility] on 02/02/2025 with worsening mental status and family was concern that she had a UTI. She was diagnosed with an outpatient UTI and has been on antibiotics but they felt that this was likely not taking care of recurrent urinary tract infection as her confusion was worsening. At baseline she is oriented to self and typically place if it is a familiar place but she is no longer oriented to time. She had been treated as an outpatient with Macrobid but her white count has worsened. Patient was not able supplying history. Per the daughter she has declined significantly in the last several months but acutely worse in the last week or 2. She is typically incontinent of urine and has become more incontinent of bowel. Upon initial discussion with the daughter she was interested in pursuing hospice so hospice consult was placed. Vital signs showed a temperature of 97.8, heart rate 96, respiratory rate was 16, blood pressure was 106/50 and pulse ox is 94% sat on room air at the time of admission. CBC showed a mild leukocytosis white count of 13.4 and no left shift. Hemoglobin was slightly elevated as well at 15.3 I suspect this was some hemoconcentration as family reported she was not eating and drinking well. Chemistry panel was overtly unremarkable other than elevated BUN and serum creatinine from her baseline at 25 and 1.19 respectively. Lactic acid was normal at 1.2. UA was concerning for infection. COVID/flu/RSV was unremarkable. Chest x-ray showed chronic changes but no acute process. EKG was unremarkable. She was admitted to the medical floor and placed on Rocephin for urinary tract infections cultures were sent and grew E. coli that was fairly pansensitive. She completed antibiotic course via IV and IM ceftriaxone during her hospitalization. Hospice was consulted and family signed hospice papers on 02/01/2025. Hospice was available at [facility] which is a new facility for her on 02/02/2025 and the patient was discharged there in stable condition at that time. By the time of discharge the patient was much more alert and aware of her surroundings and family indicated she was much closer to baseline after urinary tract infection was treated. Discharge diagnoses: Acute E. coli urinary tract infection-treatment complete Chronic cough Asthma Acute metabolic encephalopathy-resolved Dementia-type unknown but suspect Alzheimer's type Generalized weakness Debility Essential hypertension Hyperlipidemia Anxiety Depression Obesity-BMI 35.6 Physical Exam Const alert, no apparent distress and average body habitus; Negative for healthy appearing or well nourished Constitutional Narrative: Obese, elderly, white female, much more alert today, sitting up in bed awake, interacting with family and eating breakfast, most interactions were physical as she does not seem to have much vocabulary left, calm, cooperative with exam General Appearance: cooperative, comfortable, well kempt and well developed Orientation / Consciousness: awake and confused Nutritional Appearance: obese HEENT normocephalic, head/scalp atraumatic and moist oral mucous membranes Eyes conjunctivae normal Eyes Narrative: No scleral icterus Resp normal respiratory effort, no retractions, no use of accessory muscles and clear to auscultation bilaterally Auscultation: Negative for crackles, rhonchi or wheezes Cardio regular rate, regular rhythm, S1 normal heart sound, S2 normal heart sound, no murmurs, no rub, no gallops and no clicks GI normal to inspection, nondistended, normoactive bowel sounds, soft to palpation and non-tender Extremity no clubbing, cyanosis or edema Extremity Narrative: Pedal pulses and radial pulses are 2+ bilaterally, decreased lean muscle mass bilateral lower extremities Neuro moves all extremities and no focal motor deficits Neuro Narrative: Spontaneously moves all extremities, not following commands consistently and participating in the exam, patient not very vocal Speech: Negative for speech normal Psych Psych Narrative: Patient is calm currently, much more awake, pleasant but limited verbal interaction Weight / BMI Weight Weight: 93.984 kg Body Mass Index (BMI) 35.5 ABG / Lab / Microbiology Data 01/31/25 06:40 01/31/25 06:40 Microbiology: Microbiology 01/30/25 12:41 Blood Culture (Wb) - Anticubital Left Blood Culture - Preliminary No growth in 48 hours. 01/30/25 11:30 Blood Culture (Wb) - Right Hand Blood Culture - Preliminary No growth in 48 hours. 01/30/25 11:40 Urine Catheter - Catheter Urine Culture - Final Escherichia coli 01/30/25 12:36 Mucosa - Nose SARS-CoV-2, Influenza & RSV (PCR) - Final D/C Instructions Discharge Activity: Return to Normal Activity DC O2, CPAP, BIPAP Needs Home O2 Discharge instructions: No DC home with Oxygen: No Meaningful Use Info Meaningful Use Meaningful Use Diagnoses (Choose all that apply): None applicable Discharge Plan Admission Admit Date/Time: 01/30/25 13:26 Primary Reason for Your Visit: Altered mental status Attending Provider: Marii Arellano Primary Care Provider: Anni Drummond Consulting Providers: Giovanny Flor; Keoyn Martinez; Mirna Parker; Bernadine Azul; Ibis Bone; Sue Ram HOISTING PILE DRIVING ENGINEER; Nadine Álvarez Discharge Orders/Prescriptions Prescriptions: New melatonin 3 mg Tablet 3 mg PO QHS Qty: 0 0RF menthol-zinc oxide [Calmoseptine] 0.44-20.6 % Ointment 1 applic topical TID Qty: 0 0RF Protocol: *Topical Application Instructions APPLICATION INSTRUCTIONS: apply to affected areas Continued AZO Dual Protection 5 billion cell- 15 mg capsule PO QDAY cranberry 500 mg capsule 500 mg PO BID Rx Instructions: administer with meals fluticasone propionate 220 mcg/actuation HFA aerosol inhaler 2 inh INHALATION QHS Qty: 12 3RF montelukast [Singulair] 10 mg tablet 10 mg PO DAILY Discontinued lisinopril-hydrochlorothiazide 20-25 mg tablet 1 tab PO QDAY glucosamine sulfate [Glucosamine] 500 mg tablet 500 mg PO QDAY Rx Instructions: administer with a meal atorvastatin 40 mg tablet 40 mg PO DAILY Referrals / Follow Up: Anni Drummond MD [Primary Care Provider, Internal Medicine] - See Referral Note Referral Note: As needed Disposition Disposition (needs filled in before D/C Order can be placed): Hospice in Medical Facility Charges/Coding Visit Charges Inpatient E&M: 98924 SNF Disch >30 Min
[2025-02-02 08:14] VITALS: PULSE 72; RESP 16
[2025-02-02 08:28] VITALS: BP 89/50; PULSE 91; RESP 17; TEMP 36.3; O2SAT 97
--- NOTE | 2025-02-02 11:50 | CASEMGMT ---
Social Work- SW called hospice to receive updates on equipment delivery and transport. SW spoke with Aaliyah at [facility] who reports a transport time of 3-3:30PM with [facility], but does not have a time for equipment delivery. SW encouraged that equipment delivery would need to occur prior to transport. Aaliyah reports it is in scheduling now. AC called Dimas at [facility] to update on information. Dimas reports that he was told by hospice yesterday that equipment would be delivered this morning. Dimas reports he is at the facility and no equipment has been delivered. Dimas expressed concern that pt would not have a bed if equipment is not delivered prior to transport. AC emailed Benita, hospice, regarding concerns and timeline. AC remains available to follow. ZION Stephens
--- NOTE | 2025-02-02 13:01 | PCM.TXEXTCAR ---
Diet Diet Order/Speech Therapy: INPATIENT Hospital Diet / Speech Therapy Order(s) 01/30/25 14:37 Diet: Regular - General Food consistency:: Regular Liquid Consistency:: Regular/Thin Type of Dietary Supplement:: Ensure Plus High Protein Diet Comments: SOFT FINGER FOODS please; 120 ml EPHP tid w/ meals Routine Orders/Code Status Suppository Frequency: Daily PRN Code Status: DNRCC DC O2, CPAP, BIPAP needs Home O2 Discharge instructions: No Wound(s) bernardo buttocks: Wound Type: Pressure Injury Problem/Diagnosis (1) UTI (urinary tract infection): Status: Acute Code(s): N39.0 - Urinary tract infection, site not specified Allergies/Procedures Done in Hospital Allergies No Known Allergies Allergy (Verified 01/30/25 11:16) Procedures: EKG and - (Chest x-ray) Type of Care/Length of Stay Estimated LOS: More Than 30 Days Type of Care Needed: Intermediate Rehab Potential: Poor Prognosis: Poor Additional Orders/Day of Discharge Day of Discharge: 02/02/25 Dietary and Speech Recommendations Dietitian Recommendations/Changes: Will change diet to soft finger foods/easy to chew per nsg request Will order ensure plus high protein tid w/ meals for increased nutrition if consumed Will continue to follow and monitor for changes in pt nutritional status and make additional rec as indicated. Discharge Plan Admission Admit Date/Time: 01/30/25 13:26 Primary Reason for Your Visit: Altered mental status Attending Provider: Marii Arellano Primary Care Provider: Anni Drummond Consulting Providers: Giovanny Flor; Keyon Martinez; Mirna aPrker; Bernadine Azul; Ibis Bone; Sue Ram SPECIALIZED LANGUAGE INSTRUCTOR; Nadine Álvarez Discharge Orders/Prescriptions Prescriptions: New melatonin 3 mg Tablet 3 mg PO QHS Qty: 0 0RF menthol-zinc oxide [Calmoseptine] 0.44-20.6 % Ointment 1 applic topical TID Qty: 0 0RF Protocol: *Topical Application Instructions APPLICATION INSTRUCTIONS: apply to affected areas Continued AZO Dual Protection 5 billion cell- 15 mg capsule PO QDAY cranberry 500 mg capsule 500 mg PO BID Rx Instructions: administer with meals fluticasone propionate 220 mcg/actuation HFA aerosol inhaler 2 inh INHALATION QHS Qty: 12 3RF montelukast [Singulair] 10 mg tablet 10 mg PO DAILY Discontinued lisinopril-hydrochlorothiazide 20-25 mg tablet 1 tab PO QDAY glucosamine sulfate [Glucosamine] 500 mg tablet 500 mg PO QDAY Rx Instructions: administer with a meal atorvastatin 40 mg tablet 40 mg PO DAILY Referrals / Follow Up: Anni Drummond MD [Primary Care Provider, Internal Medicine] - See Referral Note Referral Note: As needed Disposition Disposition (needs filled in before D/C Order can be placed): Hospice in Medical Facility
--- NOTE | 2025-02-02 13:16 | PHA.DC.MR.R ---
Pharmacy [place] Med Reconciliation Pharmacy Service has performed discharge medication reconciliation for this patient. The patient's discharge medication list was reviewed for discrepancies and discrepancies were resolved. Medications at Discharge Home Medications montelukast 10 mg tablet (Singulair) 10 mg PO DAILY 06/06/21 Petey,gayatri,buddy,rhamno 5 billion cell-bacterioph 15 mg capsule (AZO Dual Protection) cap PO QDAY 10/29/24 cranberry 500 mg capsule 500 mg PO BID 10/29/24 fluticasone propionate 220 mcg/actuation HFA aerosol inhaler 2 inh inhalation QHS #12 grams 10/29/24 melatonin 3 mg tablet 3 mg PO QHS #0 tabs 02/02/25 menthol 0.44 %-zinc oxide 20.6 % topical ointment (Calmoseptine) 1 applic topical TID #0 grams 02/02/25
--- NOTE | 2025-02-02 14:21 | CASEMGMT ---
Social Work SW met with pt and pt dtr and they are agreeable to discharge plan to [facility]. Bedside nurse notified of discharge time. Disposition:[facility] ZION Stephens
[2025-02-02 14:45] VITALS: BP 112/59; PULSE 94; RESP 18; TEMP 36.6; O2SAT 97
== END 2025-02-02 15:56 | disposition hospice, inpatient (51) | DRG 689 ==
LOC: ED 13:34 → MS3 13:48
PROVIDERS: Admitting Provider Family Medicine; Emergency Provider Emergency Medicine; PCP Internal Medicine; Visit Provider Internal Medicine
DX: N39.0 Urinary tract infection, site not specified (principal); G93.41 Metabolic encephalopathy; F02.83 Dementia in other diseases classified elsewhere, unspecified severity, with mood disturbance; F02.84 Dementia in other diseases classified elsewhere, unspecified severity, with anxiety; L89.319 Pressure ulcer of right buttock, unspecified stage; Z66 Do not resuscitate; L89.329 Pressure ulcer of left buttock, unspecified stage; I48.91 Unspecified atrial fibrillation; G30.9 Alzheimer's disease, unspecified; B96.20 Unspecified Escherichia coli [E. coli] as the cause of diseases classified elsewhere; I10 Essential (primary) hypertension; J45.909 Unspecified asthma, uncomplicated; E66.9 Obesity, unspecified; E78.5 Hyperlipidemia, unspecified; R15.9 Full incontinence of feces; R32 Unspecified urinary incontinence; R53.1 Weakness; R53.81 Other malaise; R05.3 Chronic cough; Z79.899 Other long term (current) drug therapy; Z79.51 Long term (current) use of inhaled steroids; Z68.35 Body mass index [BMI] 35.0-35.9, adult
CPT/HCPCS: 36415; 71045; 80048; 80053; 81001; 83605; 85025; 85610; 85730; 87040; 87077; 87086; 87088; 87186; 87631; 93005; 94640; 99285; P9612; A4216